=== PATIENT | female | born 1955 | race Hispanic/Latino ===

== ENCOUNTER 2017-04-14 18:38 | Inpatient (IN) | payer MEDICAID, OTHER ==
[2017-04-14 18:38] VITALS: BMI 36.3
--- NOTE | 2017-04-14 19:37 | C.PDOC ---
History Of Present Illness Patient presents to the ER with a complaint of left foot pain and feeling SOB. Patient states she feels like her asthma is acting up. She is currently able to speak in complete sentences, denies chest pain, fever, or chills. Time Seen by Provider: 04/14/17 19:36 Chief Complaint (Nursing): Lower Extremity Problem/Injury History Per: Patient History/Exam Limitations: no limitations Onset/Duration Of Symptoms: Hrs Current Symptoms Are (Timing): Still Present Severity: Moderate Pain Scale Rating Of: 4 Recent travel outside of the [place]: No Past Medical History Reviewed: Historical Data, Nursing Documentation, Vital Signs Vital Signs: Last Vital Signs Temp 101.2 F H 04/14/17 21:32 Pulse 99 H 04/14/17 21:32 Resp 20 04/14/17 21:32 BP 115/39 L 04/14/17 21:32 Pulse Ox 97 04/14/17 21:32 - Medical History PMH: Arthritis, Asthma, CAD, CHF, COPD, Diabetes, HTN, Hypercholesterolemia, Hyperlipidemia, Hypothyroidism, Peripheral Edema Surgical History: CABG, Hernia Repair, Tonsillectomy - [facility] Procedures CORONAR ARTERIOGR-2 CATH (11/19/13) DRAINAGE OF FACE SKIN, EXTERNAL APPROACH (02/13/17) INSERTION OF INFUSION DEV INTO SUP VENA CAVA, PERC APPROACH (10/02/16) LEFT HEART CARDIAC CATH (11/19/13) LT HEART ANGIOCARDIOGRAM (11/19/13) MEASURE CARDIAC SAMPL & PRESSURE, BILATERAL, PERC (03/11/16) PLAIN RADIOGRAPHY OF MULT COR ART USING L OSM CONTRAST (03/11/16) PLAIN RADIOGRAPHY OF R & L HEART USING L OSM CONTRAST (03/11/16) RELEASE PERITONEUM, OPEN APPROACH (12/27/16) SUPPLEMENT ABDOMINAL WALL WITH SYNTH SUB, OPEN APPROACH (12/27/16) Family History: States: No Known Family Hx - Social History Hx Tobacco Use: No Hx Alcohol Use: No Hx Substance Use: No - Immunization History Hx Tetanus Toxoid Vaccination: No Hx Influenza Vaccination: No Hx Pneumococcal Vaccination: Yes Review Of Systems Constitutional: Negative for: Fever, Chills Cardiovascular: Negative for: Chest Pain, Palpitations Respiratory: Positive for: Shortness of Breath Gastrointestinal: Negative for: Nausea, Vomiting Musculoskeletal: Positive for: Foot Pain Physical Exam - Physical Exam Appears: Non-toxic Skin: Warm, Dry Head: Normacephalic Oral Mucosa: Dry Chest: Symmetrical, No Tenderness Cardiovascular: Rhythm Regular Respiratory: No Rales, No Rhonchi, Wheezing (Scattered) Gastrointestinal/Abdominal: Soft, No Tenderness Extremity: Pedal Edema (Bilateral trace), Other (Poor vasculature skin changes to bilateral lower extremities) Pulses: Left Dorsalis Pedis: Normal, Right Dorsalis Pedis: Normal Neurological/Psych: Oriented x3 ED Course And Treatment - Laboratory Results Result Diagrams: 04/14/17 20:13 04/14/17 20:13 ECG: Interpreted By Me, Viewed By Me (86) ECG Rhythm: Nonspecific Changes O2 Sat by Pulse Oximetry: 96 (Room air) Pulse Ox Interpretation: Normal - Radiology CXR Interpretation: Yes: Other (cabg). No: Infiltrates, Fracture, Cardiomegaly Progress Note: Blood work, EKG, flu swab, urinalysis, and CXR ordered. Albuterol nebulizer, tylenol, and solumedrol administered. Disposition Discussed With DrJaquan: Lula Valentine Comment: accepted the pt on her service and took over the care at 10:26 PM Doctor Will See Patient In The: Hospital Counseled Patient/Family Regarding: Studies Performed, Diagnosis - Disposition Disposition: HOSPITALIZED Disposition Time: 19:37 Condition: FAIR Forms: [employer] (Estonian) - POA Present On Arrival: Poor Glycemic Control - Clinical Impression Clinical Impression: COPD (chronic obstructive pulmonary disease), Anemia, CHF (congestive heart failure), Chronic leg pain, Diabetic neuropathy - Scribe Statement The provider has reviewed the documentation as recorded by the Scribe Alvaro Edwards All medical record entries made by the Scribe were at my direction and personally dictated by me. I have reviewed the chart and agree that the record accurately reflects my personal performance of the history, physical exam, medical decision making, and the department course for this patient. I have also personally directed, reviewed, and agree with the discharge instructions and disposition. Decision To Admit - Pt Status Changed To: Hospital Disposition Of: Inpatient - Admit Certification Admit to Inpatient:: After my assessment, the patient will require hospitalization for at least two midnights. This is because of the severity of symptoms shown, intensity of services needed, and/or the medical risk in this patient being treated as an outpatient. - InPatient: Physician Admission Certification: I certify that this patient requires 2 or more midnights of care for the following reason:: After my assessment, the patient will require hospitalization for at least two midnights. This is because of the severity of symptoms shown, intensity of services needed, and/or the medical risk in this patient being treated as an outpatient. - . Bed Request Type: Telemetry Admitting Physician: Lula Valentine Patient Diagnosis: COPD (chronic obstructive pulmonary disease), Anemia, CHF (congestive heart failure), Chronic leg pain, Diabetic neuropathy
[2017-04-14] MEDS: Albuterol-Ipratrop 3 mg / 0.5 (3 ml) UD IH SCH ×3 (20:15→20:45)
[2017-04-14 20:16] LABS: EOS # 0.1 K/uL (0.0-0.7); LYMPH # 0.8 K/uL (1.0-4.3); MEAN CELL VOLUME 84.8 fL (81.0-99.0); MONO # 0.3 K/uL (0.0-0.8); NEUT # 6.7 K/uL (1.8-7.0)
[2017-04-14 20:22] LABS: BASO % 0.5 % (0.0-2.0); EOS % 0.6 % (0.0-4.0); HEMOGLOBIN 9.2 g/dL (11.0-16.0); MEAN CORPUSCULAR HEMOGLOBIN 27.1 pg (27.0-31.0); MEAN CORPUSCULAR HGB CONC 31.9 g/dL (33.0-37.0); MONO % 3.4 % (0.0-10.0); NEUT % 85.5 % (50.0-75.0); RBC 3.39 Mil/uL (3.80-5.20); RED CELL DISTRIBUTION WIDTH 15.8 % (11.5-14.5); WHITE BLOOD COUNT 7.9 K/uL (4.8-10.8)
[2017-04-14 20:25] LABS: INR 1.2; PROTHROMBIN TIME 13.3 SECONDS (9.7-12.2)
[2017-04-14 20:28] LABS: ALB/GLOB RATIO 1.1 (1.0-2.1); ALBUMIN 3.6 g/dL (3.5-5.0); CALCIUM 8.7 mg/dl (8.6-10.4); GFR AFRICAN-AMERICAN > 60; GFR NON-AFRICAN AMERICAN 57
[2017-04-14 20:30] LABS: VENOUS BLOOD GAS BASE EXCESS -1.7 mmol/L (0.0-2.0); VENOUS BLOOD GAS PCO2 33 mmHg (40-60); VENOUS BLOOD GAS PO2 31 mm/Hg (30-55); VENOUS BLOOD PH 7.43 (7.32-7.43)
[2017-04-14 20:32] LABS: ALT/SGPT 27 U/L (9-52); AST/SGOT 24 U/L (14-36); BLOOD UREA NITROGEN 19 mg/dL (7-17)
[2017-04-14] MEDS ORDERED: Albuterol-Ipratrop 3 mg / 0.5 (3 ml) UD ONE ×2 (20:33→20:39)
[2017-04-14 20:39] LABS: B-TYPE NATRIURETIC PEPTIDE 2290 pg/mL (0-900)
[2017-04-14 20:59] LABS: SQUAMOUS EPITHIAL 11 /hpf (0-5); URINE BACTERIA RARE (<OCC); URINE BILIRUBIN NEGATIVE (NEGATIVE); URINE BLOOD NEGATIVE (NEGATIVE); URINE CLARITY Clear (Clear); URINE COLOR Yellow (YELLOW); URINE GLUCOSE (UA) NORMAL (Normal); URINE LEUKOCYTE ESTERASE TRACE Leu/uL (Negative); URINE NITRATE NEGATIVE (NEGATIVE); URINE PROTEIN 1+ mg/dL (NEGATIVE)
[2017-04-14] MEDS ORDERED: Piperacillin/Tazobact 3.375 gm 100 ML IVPB STA (22:25)
[2017-04-14] MEDS ORDERED: Piperacillin/Tazobact 3.375 gm 100 ML IVPB ONE (22:49)
[2017-04-15] MEDS ORDERED: Albuterol HFA 90 mcg/actuation (8 g) IH PRN ×2 (01:10→14:00)
[2017-04-15] MEDS: Piperacill/Tazo 3.375gm in Dex 3.375 GM/50 ML BAG IVPB SCH ×3 (07:02→22:34)
[2017-04-15] MEDS ORDERED: Home Med 1 UNIT (Vancomycin 1 Gm [Vancomycin 1gm In Normal Saline Addvantage] 1 GM) IVPB SCH (10:00)
[2017-04-15] MEDS: (Novolog) Insulin Aspart, Recombinant 100 u/ml 10 ml vial SC SCH ×4 (10:35→21:57)
[2017-04-15] MEDS ORDERED: (Novolin R) Insulin Human Regular 100 units/ml vial ONE (10:39)
--- NOTE | 2017-04-15 10:44 | RAD ---
PROCEDURE: CHEST RADIOGRAPH, 1 VIEW HISTORY: SOB COMPARISON: 04/18/2016 FINDINGS: LUNGS: Clear. PLEURA: No pneumothorax or pleural fluid seen. CARDIOVASCULAR: Normal heart size. Status post CABG. No congestive change. OSSEOUS STRUCTURES: No significant abnormalities. VISUALIZED UPPER ABDOMEN: Normal. OTHER FINDINGS: None. IMPRESSION: No active disease.
[2017-04-15] MEDS: Enoxaparin 40 mg Syringe SC SCH (11:15)
[2017-04-15] MEDS: Vancomycin 1 gm/NS 200 ml 1 GM/200 ML BAG IVPB SCH (11:16)
[2017-04-15] MEDS: Metoprolol Succinate 50 mg XL Tab PO SCH (11:16)
[2017-04-15] MEDS: Levothyroxine 50 MCG TAB PO SCH (11:16)
[2017-04-15 19:49] VITALS: RESP 20
[2017-04-15] MEDS: Insulin Detemir 100 units/ml Vial (Levemir) SC SCH (22:17)
[2017-04-16] MEDS: guaiFENesin 200 mg/10 ml Syrup UD PO PRN (05:07)
[2017-04-16] MEDS: Piperacill/Tazo 3.375gm in Dex 3.375 GM/50 ML BAG IVPB SCH ×3 (05:32→22:20)
[2017-04-16 07:09] LABS: HDL CHOLESTEROL 28 mg/dL (30-70)
[2017-04-16 07:10] LABS: IRON < 10 ug/dL (37-170)
[2017-04-16] MEDS: (Novolog) Insulin Aspart, Recombinant 100 u/ml 10 ml vial SC SCH ×4 (07:14→21:42)
[2017-04-16 07:18] LABS: B-TYPE NATRIURETIC PEPTIDE 6790 pg/mL (0-900)
[2017-04-16 07:20] LABS: LDL CHOLESTEROL 113 mg/dL (0-129)
[2017-04-16 08:29] LABS: % IRON SATURATION 4.52 (20-55); TOTAL IRON BINDING CAPACITY 221 ug/dL (250-450)
[2017-04-16] MEDS: Enoxaparin 40 mg Syringe SC SCH (09:13)
[2017-04-16] MEDS: Metoprolol Succinate 50 mg XL Tab PO SCH (09:13)
[2017-04-16] MEDS: Levothyroxine 50 MCG TAB PO SCH (09:14)
[2017-04-16] MEDS: Vancomycin 1 gm/NS 200 ml 1 GM/200 ML BAG IVPB SCH (11:31)
--- NOTE | 2017-04-16 11:39 | CP.PCM.CON ---
History of Present Illness - History of Present Illness History of Present Illness: Patient presents to the ER with a complaint of left foot pain and feeling SOB. Patient states she feels like her asthma is acting up. Started on IV antibiotics for cellulitis - Medical History PMH: Arthritis, Asthma, CAD, CHF, COPD, Diabetes, HTN, Hypercholesterolemia, Hyperlipidemia, Hypothyroidism, Peripheral Edema Surgical History: CABG, Hernia Repair, Tonsillectomy - [facility] Procedures CORONAR ARTERIOGR-2 CATH (11/19/13) DRAINAGE OF FACE SKIN, EXTERNAL APPROACH (02/13/17) INSERTION OF INFUSION DEV INTO SUP VENA CAVA, PERC APPROACH (10/02/16) LEFT HEART CARDIAC CATH (11/19/13) LT HEART ANGIOCARDIOGRAM (11/19/13) MEASURE CARDIAC SAMPL & PRESSURE, BILATERAL, PERC (03/11/16) PLAIN RADIOGRAPHY OF MULT COR ART USING L OSM CONTRAST (03/11/16) PLAIN RADIOGRAPHY OF R & L HEART USING L OSM CONTRAST (03/11/16) RELEASE PERITONEUM, OPEN APPROACH (12/27/16) SUPPLEMENT ABDOMINAL WALL WITH SYNTH SUB, OPEN APPROACH (12/27/16) Family History: States: No Known Family Hx Past Patient History - Infectious Disease Hx of Infectious Diseases: None - Tetanus Immunizations Tetanus Immunization: Unknown - Past Medical History & Family History Past Medical History?: Yes - Past Social History Smoking Status: Never Smoked - CARDIAC Hx Congestive Heart Failure: Yes Hx Hypercholesterolemia: Yes Hx Hypertension: Yes Hx Peripheral Edema: Yes - PULMONARY Hx Asthma: Yes Hx Chronic Obstructive Pulmonary Disease (COPD): Yes - NEUROLOGICAL Hx Neurological Disorder: No - HEENT Other/Comment: Uses eyeglasses - RENAL Hx Chronic Kidney Disease: No - ENDOCRINE/METABOLIC Hx Hypothyroidism: Yes - HEMATOLOGICAL/ONCOLOGICAL Hx Anemia: No Hx Human Immunodeficiency Virus (HIV): No - INTEGUMENTARY Hx Dermatological Problems: Yes Other/Comment: Hx non-healing wound LLE - MUSCULOSKELETAL/RHEUMATOLOGICAL Hx Arthritis: Yes Hx Falls: No - GASTROINTESTINAL Hx Gastrointestinal Disorders: No - GENITOURINARY/GYNECOLOGICAL Hx Genitourinary Disorders: No - PSYCHIATRIC Hx Substance Use: No - SURGICAL HISTORY Hx Coronary Artery Bypass Graft: Yes Hx Tonsillectomy: Yes - ANESTHESIA Hx Anesthesia: Yes Hx Anesthesia Reactions: No Hx Malignant Hyperthermia: No Meds Allergies/Adverse Reactions: Allergies Allergy/AdvReac Type Severity Reaction Status Date / Time No Known Allergies Allergy Verified 04/14/17 19:28 - Medications Medications: Current Medications Acetaminophen (Tylenol 325mg Tab) 650 mg PO Q4 PRN PRN Reason: Pain, moderate (4-7) Albuterol (Ventolin Hfa 90 Mcg/Actuation (8 G)) 2 puff IH RQ6 PRN PRN Reason: Shortness of Breath Last Admin: 04/16/17 03:43 Dose: 2 puff Allopurinol (Zyloprim) 100 mg PO DAILY [facility]END[facility] S[facility] TO [facility] Last Admin: 04/16/17 09:14 Dose: 100 mg Aspirin (Ecotrin) 81 mg PO DAILY PENDING S[facility] TO [facility] Last Admin: 04/16/17 09:14 Dose: 81 mg Clopidogrel Bisulfate (Plavix) 75 mg PO DAILY PEND[facility] S[facility] TO [facility] Last Admin: 04/16/17 09:14 Dose: 75 mg Enoxaparin Sodium (Lovenox) 40 mg SC DAILY [facility]END[facility] TO [facility] Last Admin: 04/16/17 09:13 Dose: 40 mg Furosemide (Lasix) 40 mg IVP DAILY [facility] Last Admin: 04/16/17 09:13 Dose: 40 mg Gabapentin (Neurontin) 100 mg PO DAILY [facility] Last Admin: 04/16/17 09:14 Dose: 100 mg Guaifenesin (Robitussin) 200 mg PO Q4H PRN PRN Reason: Cough and congestion Last Admin: 04/16/17 05:07 Dose: 200 mg Piperacillin Sod/Tazobactam Sod (Zosyn 3.375 Gm Iv Premix) 3.375 gm in 50 mls @ 100 mls/hr IVPB Q8 PENDING SALE TO [facility] Last Admin: 04/16/17 05:32 Dose: 100 mls/hr Vancomycin/Sodium Chloride (Vancomycin 1 Gm/Ns 200 Ml) 1 gm in 200 mls @ 133.333 mls/hr IVPB Q24H PENDING SALE TO [facility] Stop: 04/20/17 11:01 Last Admin: 04/16/17 11:31 Dose: 133.333 mls/hr Insulin Aspart (Novolog) 0 unit SC ACHS PENDING SALE TO [facility] PRN Reason: Protocol Last Admin: 04/16/17 11:15 Dose: Not Given Insulin Detemir (Levemir) 12 unit SC HS [facility] Last Admin: 04/15/17 22:17 Dose: 12 unit Isosorbide Mononitrate (Imdur) 60 mg PO DAILY [facility] Last Admin: 04/16/17 09:14 Dose: 60 mg Levothyroxine Sodium (Synthroid) 50 mcg PO DAILY [facility] Last Admin: 04/16/17 09:14 Dose: 50 mcg Lisinopril (Zestril) 10 mg PO DAILY [facility] Last Admin: 04/16/17 09:14 Dose: 10 mg Metformin HCl (Glucophage) 500 mg PO BID [facility] Last Admin: 04/16/17 09:14 Dose: 500 mg Metoprolol Succinate (Toprol Xl) 50 mg PO DAILY [facility] Last Admin: 04/16/17 09:13 Dose: 50 mg Mupirocin (Bactroban Ointment) 0 gm TOP BID [facility] Last Admin: 04/16/17 09:16 Dose: 1 ea Rosuvastatin Calcium (Crestor) 5 mg PO [facility] Last Admin: 04/15/17 22:17 Dose: 5 mg Results - Vital Signs Recent Vital Signs: Last Vital Signs Temp 99.4 F 04/16/17 07:25 Pulse 87 04/16/17 08:00 Resp 20 04/16/17 07:25 BP 104/56 L 04/16/17 09:13 Pulse Ox 97 04/16/17 07:25 - Labs Result Diagrams: 04/14/17 20:13 04/14/17 20:13 Labs: Laboratory Results - last 24 hr 04/15/17 04/15/17 04/15/17 12:43 17:46 21:10 POC Glucose (mg/dL) 148 H 192 H 162 H Hemoglobin A1c Iron TIBC % Saturation NT-Pro-B Natriuret Pep Triglycerides Cholesterol LDL Cholesterol Direct HDL Cholesterol Vitamin B12 04/16/17 04/16/17 04/16/17 06:34 06:45 06:45 POC Glucose (mg/dL) 80 Hemoglobin A1c Iron < 10 L TIBC 221 L % Saturation 4.52 L NT-Pro-B Natriuret Pep 6790 H Triglycerides 157 H D Cholesterol 171 LDL Cholesterol Direct 113 HDL Cholesterol 28 L Vitamin B12 336 04/16/17 04/16/17 06:45 11:10 POC Glucose (mg/dL) 80 Hemoglobin A1c 6.6 H Iron TIBC % Saturation NT-Pro-B Natriuret Pep Triglycerides Cholesterol LDL Cholesterol Direct HDL Cholesterol Vitamin B12 Assessment & Plan - Assessment and Plan (Free Text) Assessment: cont iv rx cellulitis LLE
--- NOTE | 2017-04-16 13:42 | HP ---
The patient was seen and examined on 04/15/2017 in her room. CHIEF COMPLAINT: Swelling of the legs. HISTORY OF PRESENT ILLNESS: Ms. Taylor Angeles is a 61-year-old female with history of congestive heart failure, COPD, history of stasis dermatitis of the legs, very noncompliant, came with left foot pain and feeling shortness of breath. The patient states that she feels like her asthma is acting up, coughing, shortness of breath. She denies chest pain, fever. chills, nausea, vomiting, or diarrhea. Legs were swollen and red. PAST MEDICAL HISTORY: Arthritis, asthma, coronary artery disease, congestive heart failure, COPD, diabetes mellitus, hypertension, hypercholesterolemia, hyperlipidemia, hypothyroidism, and peripheral edema. PAST SURGICAL HISTORY: CABG, hernia repair, and tonsillectomy. HABITS: No smoking. No drugs. No ethanol. ALLERGIES: THE PATIENT IS NOT ALLERGIC TO ANY MEDICATION. Home medications are reviewed by me. REVIEW OF SYSTEMS: The patient is seen and examined at the bedside, looking comfortable. No nausea, vomiting, or diarrhea. No hematuria or hematochezia. Having swelling of the legs. No headache or dizziness. Cough is better, shortness of breath is better. No fever. No chills. PHYSICAL EXAMINATION VITAL SIGNS: Temperature 97.1, pulse 73, blood pressure 118/63, and respiratory rate 20. HEENT: Head: Normocephalic, atraumatic. Eyes: PERRLA. Extraocular movements are intact. Conjunctivae clear. Nose patent. Mucous membranes are moist. NECK: Supple. No carotid bruits, JVD, or thyromegaly. CHEST: Bilaterally symmetrical. HEART: S1 and S2 positive. LUNGS: Clear to auscultation, ABDOMEN: Soft. Bowel sounds are present. No organomegaly. EXTREMITIES: With trace edema and redness of the legs. NEUROLOGIC: The patient is awake and alert, moving all 4 extremities with no focal deficits. LABORATORY DATA: White blood cells 7.9, hemoglobin 9.2, hematocrit 28.8, and platelets 233,000. Sodium 131, potassium 4.5, BUN 19, creatinine 1.0, glucose 162, and BNP 2290. ASSESSMENT AND PLAN: Ms. Taylor Angeles is a 61-year-old female with anemia, hyponatremia, and diabetes mellitus who came with congestive heart failure, cellulitis of the leg, and proteinuria. Influenza type A and B is negative. The patient has a history of arthritis, asthma, coronary artery disease, chronic obstructive pulmonary disease, hypercholesterolemia, hyperlipidemia, hypothyroidism, peripheral vascular disease, coronary artery bypass grafting, hernia repair, and tonsillectomy. Re-admitted the patient. Started Crestor for hypercholesterolemia; metformin for diabetes mellitus, put on sliding scale; started isosorbide, Lasix Lovenox for deep venous thrombosis prophylaxis; Neurontin for deep venous thrombosis; getting antibiotics Zosyn, Plavix and levothyroxine for hypothyroidism; getting vancomycin, Zestril. Gastric and deep venous thrombosis prophylaxis. Repeat labs. We will follow. Lula Valentine MD
--- NOTE | 2017-04-16 14:33 | CP.PCM.CON ---
<Shadi Thompson - Last Filed: 04/16/17 14:18> History of Present Illness - History of Present Illness History of Present Illness: Cardiology Consult Note for Dr. Adams CC: Left foot pain and SOB Pt is a 61 yo female with PMH of asthma, arthritis, venous stasis dermatitis. CAD, CHF with preserved EF, DM, HTN, IA (2012), HLD, hypothyroidism, peripheral edema presents to due to left foot pain and SOB. Pt states that the foot pain is chronic is due to peripheral neuropathy 2/2 to DM. Pt is currently being treated with gabapentin for neuropathic pain. Pt states that it feels like her asthma is worsening as she is short of breath and has increased coughing, non-productive. Pt also complaining of fever on admission. Pt can only walk 2 blocks before becoming short of breath. Pt requires 2 pillows when sleeping at night. Pt is on several medications for CHF, however is known to be non-compliant. Pt had cardiac catherization on 06/16/16 that showed patent ANDERSON to LAD and patent saphenous vein to posterior lateral. However, no other grafts could be identified. Echocardiogram in September 2016 showed LVEF of 60-65%, moderate dilation of left atrium, moderate TR/MR, and moderate pulmonary HTN. Currently, patient denied chest pain, nausea, vomiting, diarrhea, abdominal pain , fever, chills, headache, or dizziness. PMH: Asthma, arthritis, venous stasis dermatitis, CAD, CHF with preserved EF, DM , HTN, IA (2013), HLD, hypothyroidism, peripheral edema PSH: CABG quadruple bypass (2012), hernia repair, tonsillectomy All: NKDA FHx: Non-contributory SH: Denied tobacco, EtOH, and illicit drug use Review of Systems - Review of Systems Review of Systems: 12 point ROS reviewed and is negative other than what is stated in HPI. Past Patient History - Infectious Disease Hx of Infectious Diseases: None - Tetanus Immunizations Tetanus Immunization: Unknown - Past Medical History & Family History Past Medical History?: Yes - Past Social History Smoking Status: Never Smoked - CARDIAC Hx Congestive Heart Failure: Yes Hx Hypercholesterolemia: Yes Hx Hypertension: Yes Hx Peripheral Edema: Yes - PULMONARY Hx Asthma: Yes Hx Chronic Obstructive Pulmonary Disease (COPD): Yes - NEUROLOGICAL Hx Neurological Disorder: No - HEENT Other/Comment: Uses eyeglasses - RENAL Hx Chronic Kidney Disease: No - ENDOCRINE/METABOLIC Hx Hypothyroidism: Yes - HEMATOLOGICAL/ONCOLOGICAL Hx Anemia: No Hx Human Immunodeficiency Virus (HIV): No - INTEGUMENTARY Hx Dermatological Problems: Yes Other/Comment: Hx non-healing wound LLE - MUSCULOSKELETAL/RHEUMATOLOGICAL Hx Arthritis: Yes Hx Falls: No - GASTROINTESTINAL Hx Gastrointestinal Disorders: No - GENITOURINARY/GYNECOLOGICAL Hx Genitourinary Disorders: No - PSYCHIATRIC Hx Substance Use: No - SURGICAL HISTORY Hx Coronary Artery Bypass Graft: Yes Hx Tonsillectomy: Yes - ANESTHESIA Hx Anesthesia: Yes Hx Anesthesia Reactions: No Hx Malignant Hyperthermia: No Meds Allergies/Adverse Reactions: Allergies Allergy/AdvReac Type Severity Reaction Status Date / Time No Known Allergies Allergy Verified 04/14/17 19:28 - Medications Medications: Current Medications Acetaminophen (Tylenol 325mg Tab) 650 mg PO Q4 PRN PRN Reason: Pain, moderate (4-7) Last Admin: 04/16/17 13:42 Dose: 650 mg Albuterol (Ventolin Hfa 90 Mcg/Actuation (8 G)) 2 puff IH RQ6 PRN PRN Reason: Shortness of Breath Last Admin: 04/16/17 03:43 Dose: 2 puff Allopurinol (Zyloprim) 100 mg PO DAILY [facility] Last Admin: 04/16/17 09:14 Dose: 100 mg Aspirin (Ecotrin) 81 mg PO DAILY [facility] Last Admin: 04/16/17 09:14 Dose: 81 mg Clopidogrel Bisulfate (Plavix) 75 mg PO DAILY [facility] Last Admin: 04/16/17 09:14 Dose: 75 mg Enoxaparin Sodium (Lovenox) 40 mg SC DAILY [facility] Last Admin: 04/16/17 09:13 Dose: 40 mg Furosemide (Lasix) 40 mg IVP DAILY [facility] Last Admin: 04/16/17 09:13 Dose: 40 mg Gabapentin (Neurontin) 100 mg PO DAILY [facility] Last Admin: 04/16/17 09:14 Dose: 100 mg Guaifenesin (Robitussin) 200 mg PO Q4H PRN PRN Reason: Cough and congestion Last Admin: 04/16/17 05:07 Dose: 200 mg Piperacillin Sod/Tazobactam Sod (Zosyn 3.375 Gm Iv Premix) 3.375 gm in 50 mls @ 100 mls/hr IVPB Q8 [facility] Last Admin: 04/16/17 13:42 Dose: 100 mls/hr Vancomycin/Sodium Chloride (Vancomycin 1 Gm/Ns 200 Ml) 1 gm in 200 mls @ 133.333 mls/hr IVPB Q24H [facility] Stop: 04/20/17 11:01 Last Admin: 04/16/17 11:31 Dose: 133.333 mls/hr Insulin Aspart (Novolog) 0 unit SC [facility] PRN Reason: Protocol Last Admin: 04/16/17 11:15 Dose: Not Given Insulin Detemir (Levemir) 12 unit SC [facility] Last Admin: 04/15/17 22:17 Dose: 12 unit Isosorbide Mononitrate (Imdur) 60 mg PO DAILY [facility] Last Admin: 04/16/17 09:14 Dose: 60 mg Levothyroxine Sodium (Synthroid) 50 mcg PO DAILY [facility] Last Admin: 04/16/17 09:14 Dose: 50 mcg Lisinopril (Zestril) 10 mg PO DAILY [facility] Last Admin: 04/16/17 09:14 Dose: 10 mg Metformin HCl (Glucophage) 500 mg PO BID [facility] Last Admin: 04/16/17 09:14 Dose: 500 mg Metoprolol Succinate (Toprol Xl) 50 mg PO DAILY [facility] Last Admin: 04/16/17 09:13 Dose: 50 mg Mupirocin (Bactroban Ointment) 0 gm TOP BID [facility] Last Admin: 04/16/17 09:16 Dose: 1 ea Rosuvastatin Calcium (Crestor) 5 mg PO [facility] Last Admin: 04/15/17 22:17 Dose: 5 mg Physical Exam - Constitutional Appears: No Acute Distress - Head Exam Head Exam: NORMAL INSPECTION - Eye Exam Eye Exam: Normal appearance - ENT Exam ENT Exam: Normal Exam - Neck Exam Neck exam: Positive for: Normal Inspection - Respiratory Exam Respiratory Exam: Clear to Auscultation Bilateral. absent: Rales, Rhonchi, Wheezes - Cardiovascular Exam Cardiovascular Exam: RRR, +S1, +S2. absent: Clicks, Gallop, Rubs, Systolic Murmur - GI/Abdominal Exam GI & Abdominal Exam: Soft. absent: Distended, Guarding, Hernia, Rebound, Tenderness - Extremities Exam Extremities exam: Positive for: pedal edema - Neurological Exam Neurological exam: Alert, Oriented x3 Results - Vital Signs Recent Vital Signs: Last Vital Signs Temp 100.1 F H 04/16/17 13:42 Pulse 83 04/16/17 11:55 Resp 20 04/16/17 07:25 BP 104/56 L 04/16/17 09:13 Pulse Ox 97 04/16/17 07:25 - Labs Result Diagrams: 04/14/17 20:13 04/14/17 20:13 Labs: Laboratory Results - last 24 hr 04/15/17 04/15/17 04/16/17 17:46 21:10 06:34 POC Glucose (mg/dL) 192 H 162 H 80 Hemoglobin A1c Iron TIBC % Saturation NT-Pro-B Natriuret Pep Triglycerides Cholesterol LDL Cholesterol Direct HDL Cholesterol Vitamin B12 04/16/17 04/16/17 04/16/17 06:45 06:45 06:45 POC Glucose (mg/dL) Hemoglobin A1c 6.6 H Iron < 10 L TIBC 221 L % Saturation 4.52 L NT-Pro-B Natriuret Pep 6790 H Triglycerides 157 H D Cholesterol 171 LDL Cholesterol Direct 113 HDL Cholesterol 28 L Vitamin B12 336 04/16/17 11:10 POC Glucose (mg/dL) 80 Hemoglobin A1c Iron TIBC % Saturation NT-Pro-B Natriuret Pep Triglycerides Cholesterol LDL Cholesterol Direct HDL Cholesterol Vitamin B12 Assessment & Plan - Assessment and Plan (Free Text) Assessment: 61 yo female with asthma, arthritis, venous stasis dermatitis, CAD, CHF with preserved EF, DM, HTN, [place] (2012), HLD, hypothyroidism, peripheral edema presents with SOB likely 2/2 CHF with preserved EF. Plan: 1. CHF with preserved EF - BNP 2290, 6790 - Echo showed moderate MS, moderate pulm HTN, and aortic insufficiency - EKG showed NSR, possible inferior infarct age undetermined - CXR negative - ASCVD 10 year risk 7.8% - Continue gentle diuresis, Lasix 40 mg PO - Continue ASA, plavix, Lopressor, Imdur 2. Viral URI - Febrile on admission with increased cough - Symptomatic management 3. LLE cellulitis - IV abx - ID following 4. HTN - Cont Lisinopril 5. DM - Cont Metformin - Cont Insulin basal-bolus - Accucheck ACHS 6. Hypothyroidism - Cont Synthroid 7. HLD - Cont Crestor Pt seen and discussed in detail with Dr. Adams. Corby Thompson, PGY1 <Johnie Adams - Last Filed: 04/17/17 08:30> Meds - Medications Medications: Current Medications Acetaminophen (Tylenol 325mg Tab) 650 mg PO Q4 PRN PRN Reason: Pain, moderate (4-7) Last Admin: 04/16/17 13:42 Dose: 650 mg Albuterol (Ventolin Hfa 90 Mcg/Actuation (8 G)) 2 puff IH RQ6 PRN PRN Reason: Shortness of Breath Last Admin: 04/16/17 03:43 Dose: 2 puff Allopurinol (Zyloprim) 100 mg PO DAILY [facility] Last Admin: 04/16/17 09:14 Dose: 100 mg Aspirin (Ecotrin) 81 mg PO DAILY [facility] Last Admin: 04/16/17 09:14 Dose: 81 mg Clopidogrel Bisulfate (Plavix) 75 mg PO DAILY [facility] Last Admin: 04/16/17 09:14 Dose: 75 mg Enoxaparin Sodium (Lovenox) 40 mg SC DAILY [facility] Last Admin: 04/16/17 09:13 Dose: 40 mg Furosemide (Lasix) 40 mg PO DAILY [facility] Gabapentin (Neurontin) 100 mg PO DAILY [facility] Last Admin: 04/16/17 09:14 Dose: 100 mg Guaifenesin (Robitussin) 200 mg PO Q4H PRN PRN Reason: Cough and congestion Last Admin: 04/17/17 04:21 Dose: 200 mg Piperacillin Sod/Tazobactam Sod (Zosyn 3.375 Gm Iv Premix) 3.375 gm in 50 mls @ 100 mls/hr IVPB Q8 [facility] Last Admin: 04/17/17 05:57 Dose: 100 mls/hr Vancomycin/Sodium Chloride (Vancomycin 1 Gm/Ns 200 Ml) 1 gm in 200 mls @ 133.333 mls/hr IVPB Q24H [facility] Stop: 04/20/17 11:01 Last Admin: 04/16/17 11:31 Dose: 133.333 mls/hr Insulin Aspart (Novolog) 0 unit SC [facility] PRN Reason: Protocol Last Admin: 04/17/17 07:24 Dose: Not Given Insulin Detemir (Levemir) 12 unit SC [facility] Last Admin: 04/16/17 21:42 Dose: Not Given Isosorbide Mononitrate (Imdur) 60 mg PO DAILY [facility] Last Admin: 04/16/17 09:14 Dose: 60 mg Levothyroxine Sodium (Synthroid) 50 mcg PO DAILY [facility] Last Admin: 04/16/17 09:14 Dose: 50 mcg Lisinopril (Zestril) 10 mg PO DAILY [facility] Last Admin: 04/16/17 09:14 Dose: 10 mg Metformin HCl (Glucophage) 500 mg PO BID [facility] Last Admin: 04/16/17 18:14 Dose: Not Given Metoprolol Succinate (Toprol Xl) 50 mg PO DAILY [facility] Last Admin: 04/16/17 09:13 Dose: 50 mg Mupirocin (Bactroban Ointment) 0 gm TOP BID [facility] Last Admin: 04/16/17 18:51 Dose: 1 appl Rosuvastatin Calcium (Crestor) 5 mg PO [facility] Last Admin: 04/16/17 22:20 Dose: 5 mg Results - Vital Signs Recent Vital Signs: Last Vital Signs Temp 100.9 F H 04/17/17 07:35 Pulse 72 04/17/17 07:35 Resp 20 04/17/17 07:35 BP 112/64 04/17/17 07:35 Pulse Ox 95 04/17/17 07:35 - Labs Result Diagrams: 04/17/17 07:54 04/17/17 07:54 Labs: Laboratory Results - last 24 hr 04/16/17 04/16/17 04/16/17 06:45 06:45 11:10 WBC RBC Hgb Hct MCV MCH MCHC RDW Plt Count MPV Neut % (Auto) Lymph % (Auto) Boundary % (Auto) Eos % (Auto) Baso % (Auto) Neut # Lymph # Boundary # Eos # Baso # Sodium Potassium Chloride Carbon Dioxide Anion Gap BUN Creatinine Est GFR ( Amer) Est GFR (Non-Af Amer) POC Glucose (mg/dL) 80 Random Glucose Hemoglobin A1c 6.6 H Lactic Acid Calcium TIBC 221 L % Saturation 4.52 L Total Bilirubin AST ALT Alkaline Phosphatase Total Protein Albumin Globulin Albumin/Globulin Ratio 04/16/17 04/16/17 04/16/17 16:28 16:29 16:59 WBC 8.8 RBC 2.97 L Hgb 8.2 L Hct 25.1 L MCV 84.6 MCH 27.6 MCHC 32.6 L RDW 15.3 H Plt Count 275 MPV 9.2 Neut % (Auto) 85.5 H Lymph % (Auto) 12.6 L Boundary % (Auto) 1.7 Eos % (Auto) 0.0 Baso % (Auto) 0.2 Neut # 7.5 H Lymph # 1.1 Boundary # 0.1 Eos # 0.0 Baso # 0.0 Sodium Potassium Chloride Carbon Dioxide Anion Gap BUN Creatinine Est GFR ( Amer) Est GFR (Non-Af Amer) POC Glucose (mg/dL) 69 69 Random Glucose Hemoglobin A1c Lactic Acid Calcium TIBC % Saturation Total Bilirubin AST ALT Alkaline Phosphatase Total Protein Albumin Globulin Albumin/Globulin Ratio 04/16/17 04/16/17 04/16/17 16:59 17:20 21:21 WBC RBC Hgb Hct MCV MCH MCHC RDW Plt Count MPV Neut % (Auto) Lymph % (Auto) Boundary % (Auto) Eos % (Auto) Baso % (Auto) Neut # Lymph # Boundary # Eos # Baso # Sodium 132 Potassium 3.6 Chloride 100 Carbon Dioxide 25 Anion Gap 11 BUN 23 H Creatinine 1.3 H Est GFR ( Amer) 51 Est GFR (Non-Af Amer) 42 POC Glucose (mg/dL) 80 77 Random Glucose 74 Hemoglobin A1c Lactic Acid Calcium 8.4 L TIBC % Saturation Total Bilirubin 0.5 AST 14 D ALT 21 Alkaline Phosphatase 64 Total Protein 5.5 L Albumin 2.9 L Globulin 2.6 Albumin/Globulin Ratio 1.1 04/16/17 04/17/17 04/17/17 22:42 06:27 07:54 WBC 6.6 RBC 3.03 L Hgb 8.4 L Hct 25.6 L MCV 84.6 MCH 27.7 MCHC 32.8 L RDW 15.4 H Plt Count 240 MPV 9.2 Neut % (Auto) Lymph % (Auto) Boundary % (Auto) Eos % (Auto) Baso % (Auto) Neut # Lymph # Boundary # Eos # Baso # Sodium Potassium Chloride Carbon Dioxide Anion Gap BUN Creatinine Est GFR ( Amer) Est GFR (Non-Af Amer) POC Glucose (mg/dL) 87 Random Glucose Hemoglobin A1c Lactic Acid 0.8 Calcium TIBC % Saturation Total Bilirubin AST ALT Alkaline Phosphatase Total Protein Albumin Globulin Albumin/Globulin Ratio 04/17/17 07:54 WBC RBC Hgb Hct MCV MCH MCHC RDW Plt Count MPV Neut % (Auto) Lymph % (Auto) Boundary % (Auto) Eos % (Auto) Baso % (Auto) Neut # Lymph # Boundary # Eos # Baso # Sodium 131 L Potassium 3.9 Chloride 96 L Carbon Dioxide 26 Anion Gap 12 BUN 19 H Creatinine 1.3 H Est GFR ( Amer) 51 Est GFR (Non-Af Amer) 42 POC Glucose (mg/dL) Random Glucose 87 Hemoglobin A1c Lactic Acid Calcium 8.1 L TIBC % Saturation Total Bilirubin 0.9 AST 17 ALT 25 Alkaline Phosphatase 67 Total Protein 6.0 L Albumin 3.2 L Globulin 2.8 Albumin/Globulin Ratio 1.1 Attending/Attestation - Attestation I have personally seen and examined this patient.: Yes I have fully participated in the care of the patient.: Yes I have reviewed all pertinent clinical information: Yes Notes (Text): 04/17/17 08:29 CHF exacerbation hx of CAD / CABG Cath in 07/10 patent anderson to lad and svg to rca Echo done shows moderate MS will re-evaluate patient after diuresis
[2017-04-16 17:09] LABS: BASO % 0.2 % (0.0-2.0); HEMOGLOBIN 8.2 g/dL (11.0-16.0); LYMPH # 1.1 K/uL (1.0-4.3); LYMPH % 12.6 % (20.0-40.0); MEAN CELL VOLUME 84.6 fL (81.0-99.0); MEAN CORPUSCULAR HEMOGLOBIN 27.6 pg (27.0-31.0); MEAN CORPUSCULAR HGB CONC 32.6 g/dL (33.0-37.0); MEAN PLATELET VOLUME 9.2 fL (7.2-11.7); MONO # 0.1 K/uL (0.0-0.8); MONO % 1.7 % (0.0-10.0); NEUT # 7.5 K/uL (1.8-7.0); NEUT % 85.5 % (50.0-75.0); RBC 2.97 Mil/uL (3.80-5.20); RED CELL DISTRIBUTION WIDTH 15.3 % (11.5-14.5); WHITE BLOOD COUNT 8.8 K/uL (4.8-10.8)
[2017-04-16 17:29] LABS: ALB/GLOB RATIO 1.1 (1.0-2.1); ALBUMIN 2.9 g/dL (3.5-5.0); CALCIUM 8.4 mg/dl (8.6-10.4)
[2017-04-16] MEDS: Insulin Detemir 100 units/ml Vial (Levemir) SC SCH (21:42)
--- NOTE | 2017-04-16 23:31 | CARD ---
APPROVED REPORT EKG Measurement Heart [id number] <Conclusion> Normal sinus rhythm Possible Inferior infarct, age undetermined Abnormal ECG
--- NOTE | 2017-04-17 02:42 | PN ---
DATE: SUBJECTIVE: The patient is seen and examined at the bedside early in the morning, sleepy, arousable. No nausea, vomiting, or diarrhea. No fever, no chills, no headache, no dizziness, no chest pain, no palpitation. PHYSICAL EXAMINATION: VITAL SIGNS: Temperature 98.8, pulse 64, blood pressure 92/59, respiratory rate 20. HEENT: Head, normocephalic, atraumatic. Eyes, PERRLA. Extraocular muscles intact. Conjunctivae clear. Nose patent. Mucous membranes are moist. NECK: Supple. No carotid bruit. No thyromegaly. CHEST: Bilaterally symmetrical. HEART: S1 and S2 positive. LUNGS: Clear to auscultation. ABDOMEN: Soft, bowel sounds present. No organomegaly. EXTREMITIES: No edema, no cyanosis. NEUROLOGIC: The patient is awake and alert. Moving all four extremities. No focal deficit. MEDICATIONS: Bactroban ointment, Crestor, Ecotrin, Glucophage, Imdur, Lasix, Levemir, Neurontin, NovoLog, Plavix, Robitussin, Synthroid, Toprol, Tylenol, vancomycin, Ventolin, Zestril, Zosyn, and allopurinol. LABORATORY DATA: White blood cell 8.8, hemoglobin 8.2, hematocrit 25.1, platelets 275. Sodium 132, potassium 3.6, BUN 26, creatinine 1.1, glucose 77, calcium 8.7. ASSESSMENT AND PLAN: Mrs. Taylor Angeles is a 61-year-old lady with anemia, renal insufficiency, hypocalcemia, proteinuria. Influenza type A and B is negative. The patient has history of asthma, arthritis, venous stasis, dermatitis, coronary artery disease, congestive heart failure, diabetes mellitus, history of myocardial infarction, hypertension, hypothyroidism, peripheral edema, history of coronary artery bypass grafting, quadruple bypass, hernia repair, tonsillectomy. Continue gentle diuresis with Lasix 40 mg p.o., continue aspirin, Plavix, Lopressor, and Imdur. Rule out viral upper respiratory tract infection. Febrile on admission with increased cough. Left lower leg cellulitis, antibiotics as per Infectious Disease. Hypertension, continue lisinopril. Diabetes mellitus, continue metformin or insulin sliding scale. Hypothyroidism, continue Synthroid. Hypercholesterolemia, the patient is getting Crestor. I appreciate Dr. Adams's input. The patient seen by Dr. Alvaro Judge. Currently, the patient is a little bit more lethargic than usual. We will do septic workup holding evening insulin. Chest x-ray PA and lateral, blood cultures and urine ,culture and sensitivity. If she will not get better, then we will do CAT scan of the head. Repeat labs. We will follow up. Lula Valentine MD MTDArely
[2017-04-17] MEDS: guaiFENesin 200 mg/10 ml Syrup UD PO PRN (04:21)
[2017-04-17] MEDS: Piperacill/Tazo 3.375gm in Dex 3.375 GM/50 ML BAG IVPB SCH (05:57)
--- NOTE | 2017-04-17 06:13 | CARD ---
APPROVED REPORT EXAM: Two-dimensional and M-mode echocardiogram with Doppler and color Doppler. Other Information Quality : FairRhythm : INDICATION Cardiac Disease: CAD Palpitations RISK FACTORS Hypertension 2D DIMENSIONS IVSd1.6 (0.7-1.1cm)LVDd3.2 (3.9-5.9cm) PWd1.6 (0.7-1.1cm)LVDs2.9 (2.5-4.0cm) FS (%) 10.3 %LVEF (%)23.2 (>50%) M-Mode DIMENSIONS Left Atrium (MM)4.72 (2.5-4.0cm)IVSd1.04 (0.7-1.1cm) Aortic Root2.93 (2.2-3.7cm)LVDd4.72 (4.0-5.6cm) Aortic Cusp Exc.1.82 (1.5-2.0cm)PWd1.17 (0.7-1.1cm) FS (%) 47 %LVDs2.51 (2.0-3.8cm) LVEF (%)78 (>50%) Aortic Valve AI P 1/2 [id number] Mitral Valve MV E Gkagwacs656.8cm/sMV E Peak Gr.27mmHgMV A Zblngceh179.2cm/s MV E Mean Gr.10mmHgMV [id number]/A ratio1.6 MVA (PHT)1.79cm2 TDI E/Lateral E'0.0E/Medial E'0.0 Tricuspid Valve TR Peak [id number]/sTR Peak Gr.54ryLbLWNQ28dgXh LEFT VENTRICLE The left ventricle is normal size. There is moderate concentric left ventricular hypertrophy. Left ventricle systolic function is normal. The Ejection Fraction is 60-65%. There is normal LV segmental wall motion. The left ventricular diastolic function is normal. RIGHT VENTRICLE The right ventricle is normal size. There is normal right ventricular wall thickness. The right ventricular systolic function is normal. ATRIA The left atrium is mildly dilated. The right atrium size is normal. The interatrial septum is intact with no evidence for an atrial septal defect. AORTIC VALVE The aortic valve is normal in structure. There is mild aortic regurgitation. There is no aortic valvular stenosis. There is no aortic valvular vegetation. MITRAL VALVE Mitral annular calcification is moderate to severe. There is no mitral valve stenosis. Mitral regurgitation is mild. TRICUSPID VALVE The tricuspid valve is normal in structure. There is mild tricuspid regurgitation. Right ventricular systolic pressure is estimated at 40-50 mmHg. There is mild to moderate tricuspid regurgitation. PULMONIC VALVE The pulmonic valve is not well visualized. There is no pulmonic valvular regurgitation. GREAT VESSELS The aortic root is normal in size. PERICARDIAL EFFUSION There is no significant pericardial effusion. <Conclusion> Left ventricle systolic function is normal. The Ejection Fraction is 60-65%. Hypertensive heart disease.. There is mild aortic regurgitation. Mitral regurgitation is mild. There is mild tricuspid regurgitation. There is mild to moderate tricuspid regurgitation. There is no pulmonic valvular regurgitation.
[2017-04-17] MEDS: (Novolog) Insulin Aspart, Recombinant 100 u/ml 10 ml vial SC SCH ×4 (07:24→21:46)
[2017-04-17 08:12] LABS: HEMOGLOBIN 8.4 g/dL (11.0-16.0); MEAN CELL VOLUME 84.6 fL (81.0-99.0); MEAN CORPUSCULAR HEMOGLOBIN 27.7 pg (27.0-31.0); MEAN CORPUSCULAR HGB CONC 32.8 g/dL (33.0-37.0); MEAN PLATELET VOLUME 9.2 fL (7.2-11.7); RBC 3.03 Mil/uL (3.80-5.20); RED CELL DISTRIBUTION WIDTH 15.4 % (11.5-14.5); WHITE BLOOD COUNT 6.6 K/uL (4.8-10.8)
[2017-04-17 08:27] LABS: ALB/GLOB RATIO 1.1 (1.0-2.1); ALBUMIN 3.2 g/dL (3.5-5.0); CALCIUM 8.1 mg/dl (8.6-10.4)
--- NOTE | 2017-04-17 10:37 | CP.PCM.PN ---
Subjective - Date & Time of Evaluation Date of Evaluation: 04/17/17 Time of Evaluation: 10:46 - Subjective Subjective: Cardiology Progress Note for Dr. Adams Pt seen and examined at bedside. No acute overnight events. Pt states that breathing is better overall; she is able to walk to nurses station and back without becoming short of breath. Pt states that post nasal drip is causing her cough, which is unchanged from yesterday. Pt denied CP, n/v/d, fever, chills, SEBASTIAN , or dizziness. Objective - Vital Signs/Intake and Output Vital Signs (last 24 hours): Temp Pulse Resp BP Pulse Ox 100.9 F H 75 20 112/64 95 04/17/17 07:35 04/17/17 08:00 04/17/17 07:35 04/17/17 07:35 04/17/17 07:35 Intake and Output: 04/17/17 04/17/17 06:59 18:59 Intake Total 680 Balance 680 - Medications Medications: Current Medications Acetaminophen (Tylenol 325mg Tab) 650 mg PO Q4 PRN PRN Reason: Pain, moderate (4-7) Last Admin: 04/16/17 13:42 Dose: 650 mg Albuterol (Ventolin Hfa 90 Mcg/Actuation (8 G)) 2 puff IH RQ6 PRN PRN Reason: Shortness of Breath Last Admin: 04/16/17 03:43 Dose: 2 puff Allopurinol (Zyloprim) 100 mg PO DAILY [facility] Last Admin: 04/16/17 09:14 Dose: 100 mg Aspirin (Ecotrin) 81 mg PO DAILY [facility] Last Admin: 04/16/17 09:14 Dose: 81 mg Clopidogrel Bisulfate (Plavix) 75 mg PO DAILY [facility] Last Admin: 04/16/17 09:14 Dose: 75 mg Enoxaparin Sodium (Lovenox) 40 mg SC DAILY [facility] Last Admin: 04/16/17 09:13 Dose: 40 mg Furosemide (Lasix) 40 mg PO DAILY [facility] Gabapentin (Neurontin) 100 mg PO DAILY [facility] Last Admin: 04/16/17 09:14 Dose: 100 mg Guaifenesin (Robitussin) 200 mg PO Q4H PRN PRN Reason: Cough and congestion Last Admin: 04/17/17 04:21 Dose: 200 mg Piperacillin Sod/Tazobactam Sod (Zosyn 3.375 Gm Iv Premix) 3.375 gm in 50 mls @ 100 mls/hr IVPB Q8 [facility] Last Admin: 04/17/17 05:57 Dose: 100 mls/hr Vancomycin/Sodium Chloride (Vancomycin 1 Gm/Ns 200 Ml) 1 gm in 200 mls @ 133.333 mls/hr IVPB Q24H [facility] Stop: 04/20/17 11:01 Last Admin: 04/16/17 11:31 Dose: 133.333 mls/hr Insulin Aspart (Novolog) [address] [facility] PRN Reason: Protocol Last Admin: 04/17/17 07:24 Dose: Not Given Insulin Detemir (Levemir) 12 unit SC [facility] Last Admin: 04/16/17 21:42 Dose: Not Given Levothyroxine Sodium (Synthroid) 50 mcg PO DAILY [facility] Last Admin: 04/16/17 09:14 Dose: 50 mcg Lisinopril (Zestril) 10 mg PO DAILY [facility] Last Admin: 04/16/17 09:14 Dose: 10 mg Metformin HCl (Glucophage) 500 mg PO BID [facility] Last Admin: 04/16/17 18:14 Dose: Not Given Metoprolol Succinate (Toprol Xl) 25 mg PO DAILY [facility] Mupirocin (Bactroban Ointment) 0 gm TOP BID [facility] Last Admin: 04/16/17 18:51 Dose: 1 appl Rosuvastatin Calcium (Crestor) 5 mg PO [facility] Last Admin: 04/16/17 22:20 Dose: 5 mg - Labs Labs: 04/17/17 07:54 04/17/17 07:54 PT 13.3 SECONDS (9.7-12.2) H 04/14/17 20:13 INR 1.2 04/14/17 20:13 APTT 28 SECONDS (21-34) 04/14/17 20:13 - Constitutional Appears: No Acute Distress - Head Exam Head Exam: NORMAL INSPECTION - Eye Exam Eye Exam: Normal appearance Pupil Exam: NORMAL ACCOMODATION - ENT Exam ENT Exam: Normal Exam - Neck Exam Neck Exam: Normal Inspection - Respiratory Exam Respiratory Exam: Rales (bilateral bases), Wheezes. absent: Accessory Muscle Use, Rhonchi, Respiratory Distress - Cardiovascular Exam Cardiovascular Exam: RRR, +S1, +S2. absent: Gallop, Rubs, Murmur - GI/Abdominal Exam GI & Abdominal Exam: Soft. absent: Distended, Guarding, Tenderness, Rebound - Extremities Exam Extremities Exam: Pedal Edema Additional comments: LLE cellulitis, erythema - Back Exam Back Exam: NORMAL INSPECTION - Neurological Exam Neurological Exam: Alert, Awake, Oriented x3 - Psychiatric Exam Psychiatric exam: Normal Affect, Normal Mood - Skin Skin Exam: Dry, Intact, Normal Color, Warm Assessment and Plan - Assessment and Plan (Free Text) Assessment: 61 yo female with asthma, arthritis, venous stasis dermatitis, CAD, CHF with preserved EF, DM, HTN, [place] (2012), HLD, hypothyroidism, peripheral edema presents with SOB likely 2/2 CHF with preserved EF. Plan: 1. CHF with preserved EF and Moderate Mitral Stenosis - Echo showed moderate MS, moderate pulm HTN, and aortic insufficiency - EKG showed NSR, possible inferior infarct age undetermined - ASCVD 10 year risk 7.8% - Continue ASA, plavix, Lisinopril, Lasix PO - Reduced Lopressor to 25 mg PO daily - Discontinue Imdur 2. Viral URI - Febrile on admission with increased cough - Symptomatic management per primary 3. LLE cellulitis - IV abx - ID following 4. HTN - Cont Lisinopril 5. DM - Cont Metformin - Cont Insulin basal-bolus - Accucheck ACHS 6. Hypothyroidism - Cont Synthroid 7. HLD - Cont Crestor Dispo: Pt is clear from cardiac standpoint. Pt should follow up in office with Dr. Adams in [address] [place] [address]. At this point, we will sign off. Thank you for allowing us to participate in the care of this patient. Please reconsult as needed. Pt seen and discussed in detail with Dr. Adams. Corby Thompson, PGY1
[2017-04-17] MEDS: Levothyroxine 50 MCG TAB PO SCH (10:56)
[2017-04-17] MEDS: Enoxaparin 40 mg Syringe SC SCH (10:56)
[2017-04-17] MEDS: Vancomycin 1 gm/NS 200 ml 1 GM/200 ML BAG IVPB SCH (10:59)
--- NOTE | 2017-04-17 12:20 | CP.PCM.PN ---
Subjective - Date & Time of Evaluation Date of Evaluation: 04/17/17 Time of Evaluation: 07:00 - Subjective Subjective: fever persists iv rx reorderd Objective - Vital Signs/Intake and Output Vital Signs (last 24 hours): Temp Pulse Resp BP Pulse Ox 100.9 F H 75 20 101/40 L 95 04/17/17 07:35 04/17/17 08:00 04/17/17 07:35 04/17/17 11:02 04/17/17 07:35 Intake and Output: 04/17/17 04/17/17 06:59 18:59 Intake Total 680 Balance 680 - Medications Medications: Current Medications Acetaminophen (Tylenol 325mg Tab) 650 mg PO Q4 PRN PRN Reason: Pain, moderate (4-7) Last Admin: 04/17/17 10:56 Dose: 650 mg Albuterol (Ventolin Hfa 90 Mcg/Actuation (8 G)) 2 puff IH RQ6 PRN PRN Reason: Shortness of Breath Last Admin: 04/16/17 03:43 Dose: 2 puff Allopurinol (Zyloprim) 100 mg PO DAILY [facility] Last Admin: 04/17/17 10:56 Dose: 100 mg Aspirin (Ecotrin) 81 mg PO DAILY [facility] Last Admin: 04/17/17 11:09 Dose: 81 mg Clopidogrel Bisulfate (Plavix) 75 mg PO DAILY [facility] Last Admin: 04/17/17 10:56 Dose: 75 mg Enoxaparin Sodium (Lovenox) 40 mg SC DAILY [facility] Last Admin: 04/17/17 10:56 Dose: 40 mg Furosemide (Lasix) 40 mg PO DAILY [facility] Last Admin: 04/17/17 11:02 Dose: 40 mg Gabapentin (Neurontin) 100 mg PO DAILY [facility] Last Admin: 04/17/17 10:56 Dose: 100 mg Guaifenesin (Robitussin) 200 mg PO Q4H PRN PRN Reason: Cough and congestion Last Admin: 04/17/17 04:21 Dose: 200 mg Vancomycin/Sodium Chloride (Vancomycin 1 Gm/Ns 200 Ml) 1 gm in 200 mls @ 133.333 mls/hr IVPB Q24H [facility] Stop: 04/20/17 11:01 Last Admin: 04/17/17 10:59 Dose: 133.333 mls/hr Piperacillin Sod/Tazobactam (Sod 3.375 gm/ Sodium Chloride) 100 mls @ 100 mls/ hr IVPB Q8 [facility] Insulin Aspart (Novolog) 0 unit SC [facility] PRN Reason: Protocol Last Admin: 04/17/17 07:24 Dose: Not Given Insulin Detemir (Levemir) [address] [facility] Last Admin: 04/16/17 21:42 Dose: Not Given Levothyroxine Sodium (Synthroid) 50 mcg PO DAILY [facility] Last Admin: 04/17/17 10:56 Dose: 50 mcg Lisinopril (Zestril) 10 mg PO DAILY [facility] Last Admin: 04/17/17 10:56 Dose: Not Given Metformin HCl (Glucophage) 500 mg PO BID [facility] Last Admin: 04/17/17 10:56 Dose: 500 mg Metoprolol Succinate (Toprol Xl) 25 mg PO DAILY [facility] Mupirocin (Bactroban Ointment) 0 gm TOP BID [facility] Last Admin: 04/17/17 10:56 Dose: 1 appl Rosuvastatin Calcium (Crestor) [address] [facility] Last Admin: 04/16/17 22:20 Dose: 5 mg - Labs Labs: 04/17/17 07:54 04/17/17 07:54 PT 13.3 SECONDS (9.7-12.2) H 04/14/17 20:13 INR 1.2 04/14/17 20:13 APTT 28 SECONDS (21-34) 04/14/17 20:13 - Constitutional Appears: Non-toxic, Chronically Ill - Head Exam Head Exam: NORMOCEPHALIC - Eye Exam Eye Exam: absent: Scleral icterus - ENT Exam ENT Exam: Mucous Membranes Dry - Neck Exam Neck Exam: absent: Lymphadenopathy - Respiratory Exam Respiratory Exam: Decreased Breath Sounds - Cardiovascular Exam Cardiovascular Exam: REGULAR RHYTHM - GI/Abdominal Exam GI & Abdominal Exam: Distended, Soft - Rectal Exam Rectal Exam: Deferred Assessment and Plan - Assessment and Plan (Free Text) Plan: await cultures repeat flu ag
[2017-04-17] MEDS ORDERED: Piperacillin/Tazobact 3.375 GM in Sodium Chloride 100 ML IVPB SCH (14:00)
[2017-04-17 15:40] LABS: BARBITURATES, UR NEGATIVE (NEGATIVE); BENZODIAZEPINES, UR NEGATIVE (NEGATIVE); OPIATES, UR NEGATIVE (NEGATIVE); PHENCYCLIDINE, UR NEGATIVE (NEGATIVE)
[2017-04-17] MEDS: Insulin Detemir 100 units/ml Vial (Levemir) SC SCH (21:46)
--- NOTE | 2017-04-17 23:15 | PN ---
DATE: The patient is a 61-year-old female. SUBJECTIVE: The patient is seen and examined in the bedside, looking comfortable, better than yesterday. Coughing blood and shortness of breath are better. Swelling of the leg and pain of the leg is better. The patient states that she is feeling itchiness in the throat. Otherwise, no chest pain. No fever. No chills. PHYSICAL EXAMINATION: VITAL SIGNS: Temperature 100.9, pulse 75, respiratory rate 20, blood pressure 112/64, pulse oximetry 95. HEENT: Head normocephalic, atraumatic. Eyes PERRLA. Extraocular muscles intact. Conjunctivae clear. Nose patent. Mucous membrane moist. NECK: Supple. No carotid bruit. No JVD or thyromegaly. CHEST: Bilaterally symmetrical. HEART: S1 and S2 positive. LUNGS: Clear to auscultation. ABDOMEN: Soft. Bowel sounds positive. No organomegaly. EXTREMITIES: No edema. No cyanosis. NEUROLOGICAL: The patient is awake and alert. Moving all 4 extremities. No focal deficits. LABORATORY DATA: White blood cells 6.6, hemoglobin 8.4, hematocrit 25.6, platelets 240. Sodium 131, potassium 3.9, BUN 19, creatinine 1.3, glucose 87/ MEDICATIONS: Tylenol, Ventolin, albuterol, aspirin, Plavix, Lovenox, Lasix, Neurontin, Robitussin, Zosyn, vancomycin, insulin, Zestril, metformin, metoprolol, Bactroban cream, Crestor. ASSESSMENT AND PLAN: Ms. Taylor Angeles is a 61-year-old lady with anemia, hyponatremia, renal insufficiency, history of asthma, arthritis, venous stasis dermatitis, coronary artery disease, congestive heart failure with preserved ejection fraction, hypertension, history of myocardial infarction, hypothyroidism, peripheral vascular disease. Came with exacerbation of congestive heart failure. The patient has moderate mitral stenosis. EKG shows normal sinus rhythm, possible inferior infarct, age undetermined. Continue aspirin, Plavix, lisinopril, Lasix. Reduce the Lopressor to 25 p.o. q. daily. Discontinue Imdur as per neurologist. Viral upper respiratory tract infection. Febrile on admission with increased cough. Still having fever. Infectious Disease is on the case. Cellulitis of the leg, getting antibiotics. Getting metformin. Getting Synthroid for hypothyroidism. According to Cardiology, the patient cleared for discharge from cardiac point of view. She should follow up with Dr. Johnie Adams' office in [address] Judge's notes also and Dr. Adams' notes. Waiting for the cultures. Meanwhile, continue present treatment. We will follow. Lula Valentine MD
[2017-04-18 07:08] LABS: BASO % 0.3 % (0.0-2.0); EOS % 0.3 % (0.0-4.0); HEMOGLOBIN 8.6 g/dL (11.0-16.0); LYMPH # 0.8 K/uL (1.0-4.3); LYMPH % 14.4 % (20.0-40.0); MEAN CELL VOLUME 85.3 fL (81.0-99.0); MEAN CORPUSCULAR HEMOGLOBIN 27.3 pg (27.0-31.0); MONO # 0.2 K/uL (0.0-0.8); MONO % 3.4 % (0.0-10.0); NEUT # 4.5 K/uL (1.8-7.0); NEUT % 81.6 % (50.0-75.0); NRBC % 0.1 % (0.0-2.0); RBC 3.16 Mil/uL (3.80-5.20); RED CELL DISTRIBUTION WIDTH 15.2 % (11.5-14.5); WHITE BLOOD COUNT 5.5 K/uL (4.8-10.8)
[2017-04-18] MEDS: (Novolog) Insulin Aspart, Recombinant 100 u/ml 10 ml vial SC SCH ×4 (07:30→22:37)
[2017-04-18 08:01] LABS: ALB/GLOB RATIO 1.1 (1.0-2.1); ALBUMIN 3.2 g/dL (3.5-5.0); ALT/SGPT 20 U/L (9-52); AST/SGOT 24 U/L (14-36); BLOOD UREA NITROGEN 15 mg/dL (7-17); CALCIUM 8.5 mg/dl (8.6-10.4); GFR AFRICAN-AMERICAN > 60; GFR NON-AFRICAN AMERICAN 57
[2017-04-18] MEDS: Enoxaparin 40 mg Syringe SC SCH (12:16)
[2017-04-18] MEDS: Metoprolol Succinate 25 mg XL Tab PO SCH (12:17)
[2017-04-18] MEDS: Vancomycin 1 gm/NS 200 ml 1 GM/200 ML BAG IVPB SCH (12:19)
[2017-04-18] MEDS: Levothyroxine 50 MCG TAB PO SCH (12:24)
--- NOTE | 2017-04-18 18:30 | CP.PCM.PN ---
Subjective - Date & Time of Evaluation Date of Evaluation: 04/18/17 Time of Evaluation: 08:00 - Subjective Subjective: cellulitis resolved flu positive will d/c vanco Objective - Vital Signs/Intake and Output Vital Signs (last 24 hours): Temp Pulse Resp BP Pulse Ox 97.3 F L 64 20 91/47 L 95 04/18/17 16:28 04/18/17 16:28 04/18/17 16:28 04/18/17 16:28 04/18/17 16:28 Intake and Output: 04/18/17 04/18/17 06:59 18:59 Intake Total 100 Balance 100 - Medications Medications: Current Medications Acetaminophen (Tylenol 325mg Tab) 650 mg PO Q4 PRN PRN Reason: Pain, moderate (4-7) Last Admin: 04/18/17 12:18 Dose: 650 mg Albuterol (Ventolin Hfa 90 Mcg/Actuation (8 G)) 2 puff IH RQ6 PRN PRN Reason: Shortness of Breath Last Admin: 04/16/17 03:43 Dose: 2 puff Allopurinol (Zyloprim) 100 mg PO DAILY [facility] Last Admin: 04/18/17 12:18 Dose: 100 mg Aspirin (Ecotrin) 81 mg PO DAILY [facility] Last Admin: 04/18/17 12:17 Dose: 81 mg Clopidogrel Bisulfate (Plavix) 75 mg PO DAILY [facility] Last Admin: 04/18/17 12:17 Dose: 75 mg Enoxaparin Sodium (Lovenox) 40 mg SC DAILY [facility] Last Admin: 04/18/17 12:16 Dose: 40 mg Furosemide (Lasix) 40 mg PO DAILY [facility] Last Admin: 04/18/17 12:18 Dose: 40 mg Gabapentin (Neurontin) 100 mg PO DAILY [facility] Last Admin: 04/18/17 12:17 Dose: 100 mg Guaifenesin (Robitussin) 200 mg PO Q4H PRN PRN Reason: Cough and congestion Last Admin: 04/17/17 04:21 Dose: 200 mg Insulin Aspart (Novolog) 0 unit SC [facility] PRN Reason: Protocol Last Admin: 04/18/17 12:19 Dose: Not Given Insulin Detemir (Levemir) 12 unit SC [facility] Last Admin: 04/17/17 21:46 Dose: Not Given Levothyroxine Sodium (Synthroid) 50 mcg PO DAILY [facility] Last Admin: 04/18/17 12:24 Dose: 50 mcg Lisinopril (Zestril) 10 mg PO DAILY [facility] Last Admin: 04/18/17 12:20 Dose: 10 mg Metformin HCl (Glucophage) 500 mg PO BID [facility] Last Admin: 04/18/17 18:26 Dose: 500 mg Metoprolol Succinate (Toprol Xl) 25 mg PO DAILY [facility] Last Admin: 04/18/17 12:17 Dose: 25 mg Mupirocin (Bactroban Ointment) 0 gm TOP BID [facility] Last Admin: 04/18/17 18:26 Dose: 1 appl Oseltamivir Phosphate (Tamiflu Cap) 75 mg PO BID [facility] Stop: 04/22/17 15:48 Last Admin: 04/18/17 18:26 Dose: 75 mg Rosuvastatin Calcium (Crestor) 5 mg PO HS [facility] Last Admin: 04/17/17 21:44 Dose: 5 mg - Labs Labs: 04/18/17 06:58 04/18/17 06:58 PT 13.3 SECONDS (9.7-12.2) H 04/14/17 20:13 INR 1.2 04/14/17 20:13 APTT 28 SECONDS (21-34) 04/14/17 20:13 - Constitutional Appears: Non-toxic, Chronically Ill - Head Exam Head Exam: NORMOCEPHALIC - Eye Exam Eye Exam: PERRL - ENT Exam ENT Exam: Mucous Membranes Dry - Neck Exam Neck Exam: absent: Lymphadenopathy - Respiratory Exam Respiratory Exam: Decreased Breath Sounds - Cardiovascular Exam Cardiovascular Exam: REGULAR RHYTHM - GI/Abdominal Exam GI & Abdominal Exam: Distended, Soft - Exam Speculum exam: Cervical Discharge - Extremities Exam Extremities Exam: Pedal Edema - Back Exam Back Exam: absent: CVA tenderness (L), CVA tenderness (R) - Neurological Exam Neurological Exam: Alert, Awake, CN II-XII Intact, Oriented x3 Neuro motor strength exam: Left Upper Extremity: 5, Right Upper Extremity: 5, Left Lower Extremity: 5, Right Lower Extremity: 5 Assessment and Plan - Assessment and Plan (Free Text) Plan: cont rx flu
--- NOTE | 2017-04-18 22:34 | PN ---
DATE: SUBJECTIVE: The patient is a 61-year-old female. The patient was seen and examined on the bedside, looking comfortable, better than yesterday, more awake and alert. Her cellulitis of the leg got better. No fever. No chills. No fatigue. No hematuria, hematochezia. No headache. No dizziness. Has flu, so ID discontinued the vancomycin and getting Tamiflu. PHYSICAL EXAMINATION: VITAL SIGNS: Temperature 97.3, pulse 64, respiratory rate 20, blood pressure 91/46, pulse oximetry 95. HEENT: Head is normocephalic, atraumatic. Eyes PERRLA. Extraocular muscles intact. Conjunctivae clear. Nose patent. Mucous membrane moist. NECK: Supple. No carotid bruit. No JVD or thyromegaly. CHEST: Bilaterally symmetrical. HEART: S1 and S2 positive. LUNGS: Clear to auscultation. ABDOMEN: Soft. Bowel sounds positive. No organomegaly. EXTREMITIES: No edema. No cyanosis. NEUROLOGICAL: The patient is awake and alert. Moving all 4 extremities. No focal deficits. LABORATORY DATA: White blood cells 5.5, hemoglobin 8.6, hematocrit 26.9, platelets 238. Sodium 131, potassium 3.7, BUN 15, creatinine 1.0, glucose 82. MEDICATIONS: Ventolin, Allopurinol, Ecotrin, Plavix, Lovenox, Lasix, Neurontin, Robitussin, NovoLog, Levemir, Synthroid, Zestril, Glucophage, Toprol, Tamiflu, Crestor. ASSESSMENT AND PLAN: Ms. Taylor Angeles with anemia; hyponatremia; has influenza, getting Tamiflu, today is the second day; cellulitis of the leg, improved, no more vancomycin. Dr. Judge, Infectious Disease is on the case. The patient has history of congestive heart failure, chronic obstructive pulmonary disease, renal insufficiency, history of asthma, arthritis, venous stasis dermatitis, coronary artery disease, history of myocardial infarction, hypothyroidism, peripheral vascular disease. Continue present treatment. Gastrointestinal and deep venous thrombosis prophylaxis. Repeat labs. We will follow up. Lula Valentine MD [facility] # [id number]
[2017-04-18] MEDS: Insulin Detemir 100 units/ml Vial (Levemir) SC SCH (22:37)
[2017-04-19] MEDS: (Novolog) Insulin Aspart, Recombinant 100 u/ml 10 ml vial SC SCH ×4 (08:28→21:43)
[2017-04-19] MEDS: Metoprolol Succinate 25 mg XL Tab PO SCH (10:44)
[2017-04-19] MEDS: Enoxaparin 40 mg Syringe SC SCH (10:45)
[2017-04-19] MEDS: Levothyroxine 50 MCG TAB PO SCH (10:56)
[2017-04-19] MEDS: Insulin Detemir 100 units/ml Vial (Levemir) SC SCH (21:43)
--- NOTE | 2017-04-20 03:37 | PN ---
DATE: SUBJECTIVE: The patient is a 61-year-old female. The patient seen and examined at the bedside, looking comfortable, feeling better, fully awake and oriented today, still complaining of body pain. States coughing is better. Shortness of breath is better. No more fever, no nausea, vomiting or diarrhea. No hematuria or hematochezia. PHYSICAL EXAMINATION: VITAL SIGNS: Temperature 97.4, pulse 70, blood pressure 127/71, respiratory rate 20. HEENT: Head normocephalic, atraumatic. Eyes PERRLA. Extraocular muscles intact. Conjunctivae clear. Nose patent. NECK: Supple. No carotid bruit, JVD, or thyromegaly. CHEST: Bilaterally symmetrical. HEART: S1 and S2 positive. LUNGS: Clear to auscultation. ABDOMEN: Soft. Bowel sounds positive. No organomegaly. EXTREMITIES: No edema. No cyanosis. NEUROLOGIC: The patient is awake and alert. Moving all four extremities. No focal deficits. LABORATORY DATA: White blood cells 5.5, hemoglobin 8.6, hematocrit 26.9, platelets 238. Glucose 98, 92. ASSESSMENT AND PLAN: Ms. Taylor Angeles is a 61-year-old lady with anemia, proteinuria, influenza type A and B positive, history of congestive heart failure, cardiomyopathy, hypertension, stasis dermatitis of the legs, noncompliant, getting Tamiflu, history of cellulitis of the legs, was on vancomycin, improved. Dr. Judge stopped the vancomycin. Renal insufficiency, venous stasis dermatitis, history of myocardial infarction, hypothyroidism, peripheral vascular disease, continue present treatment, gastrointestinal and deep vein thrombosis, repeat labs. ID is on the case. Lula Valentine MD
[2017-04-20] MEDS ORDERED: Levothyroxine 50 MCG TAB PO SCH (06:30)
[2017-04-20] MEDS: (Novolog) Insulin Aspart, Recombinant 100 u/ml 10 ml vial SC SCH ×2 (08:05→11:23)
[2017-04-20 08:50] VITALS: BP 123/65; TEMP 97.8; O2SAT 97
[2017-04-20 08:54] VITALS: PULSE 59
[2017-04-20] MEDS: Metoprolol Succinate 25 mg XL Tab PO SCH (09:15)
[2017-04-20] MEDS: Enoxaparin 40 mg Syringe SC SCH (09:16)
--- NOTE | 2017-04-20 14:27 | CP.PCM.PN ---
Subjective - Date & Time of Evaluation Date of Evaluation: 04/20/17 Time of Evaluation: 14:27 - Subjective Subjective: PATIENT WAS CHF, FEVER AND SEVERE DIABETIC NEUROPATHY; DENIES CHEST PAIN, SOB NAUSEA OR VOMITING NO SIGN OF DISTRESS NOTED Objective - Vital Signs/Intake and Output Vital Signs (last 24 hours): Temp Pulse Resp BP Pulse Ox 97.8 F 59 L 20 123/65 97 04/20/17 08:00 04/20/17 08:45 04/20/17 08:00 04/20/17 09:15 04/20/17 08:00 Intake and Output: 04/20/17 04/20/17 06:59 18:59 Intake Total 360 Balance 360 - Medications Medications: Current Medications Acetaminophen (Tylenol 325mg Tab) 650 mg PO Q4 PRN PRN Reason: Pain, moderate (4-7) Last Admin: 04/19/17 03:50 Dose: 650 mg Albuterol (Ventolin Hfa 90 Mcg/Actuation (8 G)) 2 puff IH RQ6 PRN PRN Reason: Shortness of Breath Last Admin: 04/16/17 03:43 Dose: 2 puff Allopurinol (Zyloprim) 100 mg PO DAILY [facility] Last Admin: 04/20/17 09:17 Dose: 100 mg Aspirin (Ecotrin) 81 mg PO DAILY [facility] Last Admin: 04/20/17 09:15 Dose: 81 mg Clopidogrel Bisulfate (Plavix) 75 mg PO DAILY [facility] Last Admin: 04/20/17 09:15 Dose: 75 mg Enoxaparin Sodium (Lovenox) 40 mg SC DAILY [facility] Last Admin: 04/20/17 09:16 Dose: 40 mg Furosemide (Lasix) 40 mg PO DAILY [facility] Last Admin: 04/20/17 09:15 Dose: 40 mg Gabapentin (Neurontin) 100 mg PO DAILY [facility] Last Admin: 04/20/17 09:15 Dose: 100 mg Guaifenesin (Robitussin) 200 mg PO Q4H PRN PRN Reason: Cough and congestion Last Admin: 04/17/17 04:21 Dose: 200 mg Insulin Aspart (Novolog) 0 unit SC [facility] PRN Reason: Protocol Last Admin: 04/20/17 11:23 Dose: Not Given Insulin Detemir (Levemir) 12 unit SC [facility] Last Admin: 01/25/18 21:43 Dose: Not Given Levothyroxine Sodium (Synthroid) 50 mcg PO DAILY@0630 [facility] Lisinopril (Zestril) 10 mg PO DAILY [facility] Last Admin: 04/20/17 09:15 Dose: 10 mg Metformin HCl (Glucophage) 500 mg PO BID [facility] Last Admin: 04/20/17 09:15 Dose: 500 mg Metoprolol Succinate (Toprol Xl) 25 mg PO DAILY [facility] Last Admin: 04/20/17 09:15 Dose: 25 mg Mupirocin (Bactroban Ointment) 0 gm TOP BID [facility] Last Admin: 04/20/17 09:17 Dose: 1 appl Oseltamivir Phosphate (Tamiflu Cap) 75 mg PO BID [facility] Stop: 04/22/17 15:48 Last Admin: 04/20/17 09:15 Dose: 75 mg Rosuvastatin Calcium (Crestor) 5 mg PO HS [facility] Last Admin: 04/19/17 21:40 Dose: 5 mg - Labs Labs: 04/18/17 06:58 04/18/17 06:58 PT 13.3 SECONDS (9.7-12.2) H 04/14/17 20:13 INR 1.2 04/14/17 20:13 APTT 28 SECONDS (21-34) 04/14/17 20:13 Assessment and Plan - Assessment and Plan (Free Text) Assessment: PATIENT SEEN AND EXAMINED AT THE BEDSIDE LUNG SOUND CLEAR NATALIE; OCCASIONAL COUGH BUT PATIENT IS GETTING ROBUTUSSIN ECHO REVIEW IS EF IS GREATER THAN 40 PATIENT IS RECEIVING TAMIFLU ( COMPLETE DAY 3 IN HOUSE) AFEBRILE POST [address] HAN AND DR TORRES WHO CLEAR THE PATIENT FOR DC FOLLOW UP WITH DR TORRES IIN 1-2 WEEKS AT HER OFFICE ---CALL FOR APPOINTMENT FOLLOW UP WITH DR HAN IN 1-2 WEEKS AT HIS OFFICE ---CALL FOR APPOINTMENT CONTINUE ALL YOUR MEDICATION DIRECTED AND PRESCRIPTION WERE GIVEN FOR ALL YOUR HOME MEDS CONTINUE TAMIFLU 75 MG BY MOUTH FOR 2 MORE DAYS ACTIVITY TOLERATED CALL DR TORRES OR GO TO THE EMERGENCY ROOM IF SYMPTOMS RETURN OR WORSENING DISCUSS WITH PATIENT WHO AGREE AND VERBALIZED UNDERSTANDING
== END 2017-04-20 15:50 | disposition home or self-care (01) | DRG 127 ==
LOC: C.ER 18:38 → C.9E 22:24 → C.5S 04-15 15:45
PROVIDERS: ADMIT Internal Medicine; ATTEND Internal Medicine
DX: I11.0 Hypertensive heart disease with heart failure (principal); E11.42 Type 2 diabetes mellitus with diabetic polyneuropathy; E11.51 Type 2 diabetes mellitus with diabetic peripheral angiopathy without gangrene; E83.51 Hypocalcemia; I27.20 Pulmonary hypertension, unspecified; I42.9 Cardiomyopathy, unspecified; L03.116 Cellulitis of left lower limb; E87.1 Hypo-osmolality and hyponatremia; J11.1 Influenza due to unidentified influenza virus with other respiratory manifestations; I50.32 Chronic diastolic (congestive) heart failure; I87.2 Venous insufficiency (chronic) (peripheral); Z91.19 Patient's noncompliance with other medical treatment and regimen; E03.9 Hypothyroidism, unspecified; E78.5 Hyperlipidemia, unspecified; G89.29 Other chronic pain; I25.10 Atherosclerotic heart disease of native coronary artery without angina pectoris; I25.2 Old myocardial infarction; Z95.1 Presence of aortocoronary bypass graft; D64.9 Anemia, unspecified

== ENCOUNTER 2017-05-13 18:08 | Inpatient (IN) | payer OTHER ==
[2017-05-13 18:08] VITALS: BMI 29.2
[2017-05-13] MEDS ORDERED: Albuterol-Ipratrop 3 mg / 0.5 (3 ml) UD INH STA ×2 (18:32→20:18)
[2017-05-13] MEDS ORDERED: Albuterol-Ipratrop 3 mg / 0.5 (3 ml) UD ONE ×2 (18:50→19:03)
[2017-05-13 19:06] LABS: BASO # 0.1 K/uL (0.0-0.2); BASO % 2.4 % (0.0-2.0); EOS # 0.2 K/uL (0.0-0.7); EOS % 3.2 % (0.0-4.0); HEMOGLOBIN 9.4 g/dL (11.0-16.0); LYMPH # 1.1 K/uL (1.0-4.3); MEAN CELL VOLUME 85.4 fL (81.0-99.0); MEAN CORPUSCULAR HEMOGLOBIN 27.6 pg (27.0-31.0); MEAN CORPUSCULAR HGB CONC 32.3 g/dL (33.0-37.0); MEAN PLATELET VOLUME 8.8 fL (7.2-11.7); MONO # 0.2 K/uL (0.0-0.8); MONO % 3.5 % (0.0-10.0); NEUT # 3.9 K/uL (1.8-7.0); NEUT % 70.9 % (50.0-75.0); NRBC % 0.1 % (0.0-2.0); RBC 3.41 Mil/uL (3.80-5.20); RED CELL DISTRIBUTION WIDTH 16.4 % (11.5-14.5); WHITE BLOOD COUNT 5.5 K/uL (4.8-10.8)
[2017-05-13 19:08] LABS: ABG ALLEN TEST P; ARTERIAL BLOOD GAS HCO3 24.8 mmol/L (21-28); ARTERIAL BLOOD GAS O2 SAT 98.7 % (95-98); ARTERIAL BLOOD GAS PCO2 37 mm/Hg (35-45); ARTERIAL BLOOD GAS PH 7.42 (7.35-7.45); ARTERIAL BLOOD GAS PO2 125 mm/Hg (80-100); ARTERIAL BLOOD GAS TCO2 25.1 mmol/L (22-28)
[2017-05-13 19:12] LABS: PROTHROMBIN TIME 10.7 SECONDS (9.7-12.2)
[2017-05-13 19:18] LABS: ALB/GLOB RATIO 1.2 (1.0-2.1); ALBUMIN 3.6 g/dL (3.5-5.0); ALT/SGPT 21 U/L (9-52); AST/SGOT 16 U/L (14-36); BLOOD UREA NITROGEN 23 mg/dL (7-17); CALCIUM 9.3 mg/dl (8.6-10.4); GFR AFRICAN-AMERICAN > 60; GFR NON-AFRICAN AMERICAN 57
[2017-05-13 19:28] LABS: B-TYPE NATRIURETIC PEPTIDE 2550 pg/mL (0-900)
--- NOTE | 2017-05-13 19:49 | C.PDOC ---
History Of Present Illness 61 year old female presents to the ER via EMS in severe respiratory distress. Patient state she was at [facility] charging her phone. patient has had multiple frequent evaluations in [facility], no treatment given in the field. Patient states she drinks fluids liberally because the lasix makes her mouth dry. Denies chest pain, fever, or chills. Time Seen by Provider: 05/13/17 18:31 Chief Complaint (Nursing): Shortness Of Breath History Per: Patient History/Exam Limitations: no limitations Onset/Duration Of Symptoms: Hrs Current Symptoms Are (Timing): Still Present Current Respiratory Medications: None Associated Symptoms: denies: Fever, Chills, Chest Pain Past Medical History Reviewed: Historical Data, Nursing Documentation, Vital Signs Vital Signs: Last Vital Signs Temp 98 F 05/13/17 18:27 Pulse 81 05/13/17 18:27 Resp 28 H 05/13/17 18:27 BP 116/39 L 05/13/17 18:27 Pulse Ox 100 05/13/17 20:30 - Medical History PMH: Arthritis, Asthma, CAD, CHF, COPD, Diabetes, HTN, Hypercholesterolemia, Hyperlipidemia, Hypothyroidism, Peripheral Edema Surgical History: CABG, Hernia Repair, Tonsillectomy - [facility] Procedures CORONAR ARTERIOGR-2 CATH (11/19/13) DRAINAGE OF FACE SKIN, EXTERNAL APPROACH (02/13/17) INSERTION OF INFUSION DEV INTO SUP VENA CAVA, PERC APPROACH (10/02/16) LEFT HEART CARDIAC CATH (11/19/13) LT HEART ANGIOCARDIOGRAM (11/19/13) MEASURE CARDIAC SAMPL & PRESSURE, BILATERAL, PERC (03/11/16) PLAIN RADIOGRAPHY OF MULT COR ART USING L OSM CONTRAST (03/11/16) PLAIN RADIOGRAPHY OF R & L HEART USING L OSM CONTRAST (03/11/16) RELEASE PERITONEUM, OPEN APPROACH (12/27/16) SUPPLEMENT ABDOMINAL WALL WITH SYNTH SUB, OPEN APPROACH (12/27/16) Family History: States: Unknown Family Hx - Social History Hx Tobacco Use: No Hx Alcohol Use: No Hx Substance Use: No - Immunization History Hx Tetanus Toxoid Vaccination: No Hx Influenza Vaccination: No Hx Pneumococcal Vaccination: Yes Review Of Systems Constitutional: Negative for: Fever, Chills Cardiovascular: Negative for: Chest Pain Respiratory: Positive for: Shortness of Breath Gastrointestinal: Negative for: Nausea, Vomiting Physical Exam - Physical Exam Appears: Other (Moderate to severe respiratory distress) Skin: Normal Color, Warm, Dry Head: Atraumatic, Normacephalic Eye(s): bilateral: Normal Inspection Oral Mucosa: Moist Neck: Normal, Supple Chest: Symmetrical, No Tenderness Cardiovascular: Rhythm Regular, JVD Respiratory: Rales (At the bases), No Rhonchi, Wheezing (Scattered) Gastrointestinal/Abdominal: Soft, No Tenderness, Other (Obewe) Extremity: Pedal Edema (4/4 tense pitting) Neurological/Psych: Oriented x3, Normal Speech ED Course And Treatment - Laboratory Results Result Diagrams: 05/13/17 19:01 05/13/17 19:01 Lab Interpretation: Abnormal (BNP 2550 H, trop neg, d-dimer neg, ABG wnl) ECG: Interpreted By Me ECG Rhythm: Sinus Rhythm ECG Interpretation: Normal Rate From EC O2 Sat by Pulse Oximetry: 100 Pulse Ox Interpretation: Normal - Radiology CXR: Interpreted by Me CXR Interpretation: Yes: Heart Size, Other (CHF) Reevaluation Time: 20:18 Reassessment Condition: Improved - Physician Consult Information Outcome Of Conversation: 2020: d/w Dr. Angel Perales- Medicine, ok to admit. Critical Care Time - Critical Care Note Total Time (in mins): 90 Documented critical care: time excludes all time spent performing seperately billable procedures. Medical Decision Making Medical Decision Making: copd/chf exacerbation overdrinking her diuretics Disposition Doctor Will See Patient In The: Hospital Counseled Patient/Family Regarding: Studies Performed, Diagnosis - Disposition Disposition: HOSPITALIZED Disposition Time: 20:20 Condition: GOOD - Clinical Impression Clinical Impression: CHF (congestive heart failure), COPD (chronic obstructive pulmonary disease) - Scribe Statement The provider has reviewed the documentation as recorded by the Scribe Alvaro Edwards All medical record entries made by the Scribe were at my direction and personally dictated by me. I have reviewed the chart and agree that the record accurately reflects my personal performance of the history, physical exam, medical decision making, and the department course for this patient. I have also personally directed, reviewed, and agree with the discharge instructions and disposition.
[2017-05-13 19:58] LABS: URINE BILIRUBIN NEGATIVE (NEGATIVE); URINE BLOOD NEGATIVE (NEGATIVE); URINE CLARITY Clear (Clear); URINE COLOR Colorless (YELLOW); URINE GLUCOSE (UA) NORMAL (Normal); URINE LEUKOCYTE ESTERASE NEG Leu/uL (Negative); URINE NITRATE NEGATIVE (NEGATIVE); URINE PROTEIN NEGATIVE (NEGATIVE); URINE UROBILINOGEN NORMAL mg/dL (0.2-1.0)
[2017-05-13 20:11] LABS: BARBITURATES, UR NEGATIVE (NEGATIVE); BENZODIAZEPINES, UR NEGATIVE (NEGATIVE); OPIATES, UR NEGATIVE (NEGATIVE); PHENCYCLIDINE, UR NEGATIVE (NEGATIVE)
[2017-05-13] MEDS ORDERED: guaiFENesin 200 mg/10 ml Syrup UD PO PRN (21:15)
--- NOTE | 2017-05-13 21:31 | CP.PCM.HP ---
Past Patient History - Infectious Disease Hx of Infectious Diseases: None - Tetanus Immunizations Tetanus Immunization: Unknown - Past Medical History & Family History Past Medical History?: Yes - Past Social History Smoking Status: Never Smoked - CARDIAC Hx Congestive Heart Failure: Yes Hx Hypercholesterolemia: Yes Hx Hypertension: Yes Hx Peripheral Edema: Yes - PULMONARY Hx Asthma: Yes Hx Chronic Obstructive Pulmonary Disease (COPD): Yes - NEUROLOGICAL Hx Neurological Disorder: No - HEENT Other/Comment: Uses eyeglasses - RENAL Hx Chronic Kidney Disease: No - ENDOCRINE/METABOLIC Hx Hypothyroidism: Yes - HEMATOLOGICAL/ONCOLOGICAL Hx Anemia: No Hx Human Immunodeficiency Virus (HIV): No - INTEGUMENTARY Hx Dermatological Problems: Yes Other/Comment: Hx non-healing wound LLE - MUSCULOSKELETAL/RHEUMATOLOGICAL Hx Arthritis: Yes - GASTROINTESTINAL Hx Gastrointestinal Disorders: No - GENITOURINARY/GYNECOLOGICAL Hx Genitourinary Disorders: No - PSYCHIATRIC Hx Substance Use: No - SURGICAL HISTORY Hx Coronary Artery Bypass Graft: Yes Hx Tonsillectomy: Yes - ANESTHESIA Hx Anesthesia: Yes Hx Anesthesia Reactions: No Hx Malignant Hyperthermia: No Meds Allergies/Adverse Reactions: Allergies Allergy/AdvReac Type Severity Reaction Status Date / Time No Known Allergies Allergy Verified 05/13/17 18:16 Results - Vital Signs Recent Vital Signs: Last Vital Signs Temp 98 F 05/13/17 18:27 Pulse 81 05/13/17 18:27 Resp 28 H 05/13/17 18:27 BP 116/39 L 05/13/17 18:27 Pulse Ox 100 05/13/17 21:25 - Labs Result Diagrams: 05/13/17 19:01 05/13/17 19:01 Labs: Laboratory Results - last 24 hr 05/13/17 05/13/17 05/13/17 19:00 19:01 19:01 WBC 5.5 RBC 3.41 L Hgb 9.4 L Hct 29.1 L MCV 85.4 MCH 27.6 MCHC 32.3 L RDW 16.4 H Plt Count 241 MPV 8.8 Neut % (Auto) 70.9 Lymph % (Auto) 20.0 [place] % (Auto) 3.5 Eos % (Auto) 3.2 Baso % (Auto) 2.4 H Neut # (Auto) 3.9 Lymph # (Auto) 1.1 [place] # (Auto) 0.2 Eos # (Auto) 0.2 Baso # (Auto) 0.1 PT INR APTT D-Dimer, Quantitative Puncture Site Rra pCO2 37 pO2 125 H HCO3 24.8 ABG pH 7.42 ABG Total CO2 25.1 ABG O2 Saturation 98.7 H ABG Base Excess -0.2 Negrito Test P ABG Potassium 4.3 A-a O2 Difference 28.0 Respiratory Index 0.2 Sodium 141.0 140 Chloride 113.0 H 104 Glucose 93 Lactate 0.8 Liter Flow 2.0 FiO2 28.0 Potassium 4.5 Carbon Dioxide 28 Anion Gap 12 BUN 23 H Creatinine 1.0 Est GFR ( Amer) > 60 Est GFR (Non-Af Amer) 57 Random Glucose 95 Calcium 9.3 Total Bilirubin 0.4 AST 16 ALT 21 Alkaline Phosphatase 110 Troponin I < 0.0120 NT-Pro-B Natriuret Pep 2550 H Total Protein 6.7 Albumin 3.6 Globulin 3.1 Albumin/Globulin Ratio 1.2 Arterial Blood Potassium 4.3 Urine Color Urine Clarity Urine pH Ur Specific [place] Urine Protein Urine Glucose (UA) Urine Ketones Urine Blood Urine Nitrate Urine Bilirubin Urine Urobilinogen Ur Leukocyte Esterase Urine WBC (Auto) Urine RBC (Auto) Digoxin Urine Opiates Screen Urine Methadone Screen Ur Barbiturates Screen Ur Phencyclidine Scrn Ur Amphetamines Screen U Benzodiazepines Scrn U Oth Cocaine Metabols U Cannabinoids Screen Alcohol, Quantitative < 10 Influenza Typ A,B (EIA) 05/13/17 05/13/17 05/13/17 19:01 19:01 19:02 WBC RBC Hgb Hct MCV MCH MCHC RDW Plt Count MPV Neut % (Auto) Lymph % (Auto) [place] % (Auto) Eos % (Auto) Baso % (Auto) Neut # (Auto) Lymph # (Auto) [place] # (Auto) Eos # (Auto) Baso # (Auto) PT 10.7 INR 1.0 APTT 30 D-Dimer, Quantitative 240 Puncture Site pCO2 pO2 HCO3 ABG pH ABG Total CO2 ABG O2 Saturation ABG Base Excess [place] Test ABG Potassium A-a O2 Difference Respiratory Index Sodium Chloride Glucose Lactate Liter Flow FiO2 Potassium Carbon Dioxide Anion Gap BUN Creatinine Est GFR ( Amer) Est GFR (Non-Af Amer) Random Glucose Calcium Total Bilirubin AST ALT Alkaline Phosphatase Troponin I NT-Pro-B Natriuret Pep Total Protein Albumin Globulin Albumin/Globulin Ratio Arterial Blood Potassium Urine Color Urine Clarity Urine pH Ur Specific [place] Urine Protein Urine Glucose (UA) Urine Ketones Urine Blood Urine Nitrate Urine Bilirubin Urine Urobilinogen Ur Leukocyte Esterase Urine WBC (Auto) Urine RBC (Auto) Digoxin < 0.4 L Urine Opiates Screen Urine Methadone Screen Ur Barbiturates Screen Ur Phencyclidine Scrn Ur Amphetamines Screen U Benzodiazepines Scrn U Oth Cocaine Metabols U Cannabinoids Screen Alcohol, Quantitative Influenza Typ A,B (EIA) Negative for flu a/b 05/13/17 05/13/17 19:48 19:48 WBC RBC Hgb Hct MCV MCH MCHC RDW Plt Count MPV Neut % (Auto) Lymph % (Auto) [place] % (Auto) Eos % (Auto) Baso % (Auto) Neut # (Auto) Lymph # (Auto) [place] # (Auto) Eos # (Auto) Baso # (Auto) PT INR APTT D-Dimer, Quantitative Puncture Site pCO2 pO2 HCO3 ABG pH ABG Total CO2 ABG O2 Saturation ABG Base Excess [place] Test ABG Potassium A-a O2 Difference Respiratory Index Sodium Chloride Glucose Lactate Liter Flow FiO2 Potassium Carbon Dioxide Anion Gap BUN Creatinine Est GFR ( Amer) Est GFR (Non-Af Amer) Random Glucose Calcium Total Bilirubin AST ALT Alkaline Phosphatase Troponin I NT-Pro-B Natriuret Pep Total Protein Albumin Globulin Albumin/Globulin Ratio Arterial Blood Potassium Urine Color Colorless Urine Clarity Clear Urine pH 6.0 Ur Specific [place] 1.009 Urine Protein Negative Urine Glucose (UA) Normal Urine Ketones Negative Urine Blood Negative Urine Nitrate Negative Urine Bilirubin Negative Urine Urobilinogen Normal Ur Leukocyte Esterase Neg Urine WBC (Auto) 1 Urine RBC (Auto) < 1 Digoxin Urine Opiates Screen Negative Urine Methadone Screen Negative Ur Barbiturates Screen Negative Ur Phencyclidine Scrn Negative Ur Amphetamines Screen Negative U Benzodiazepines Scrn Negative U Oth Cocaine Metabols Negative U Cannabinoids Screen Negative Alcohol, Quantitative Influenza Typ A,B (EIA)
[2017-05-13] MEDS: (Novolin R) Insulin Human Regular 100 units/ml vial SC SCH ×2 (21:46→21:59)
[2017-05-13] MEDS: Insulin Detemir 100 units/ml Vial (Levemir) SC SCH (22:54)
[2017-05-14] MEDS: Albuterol-Ipratrop 3 mg / 0.5 (3 ml) UD INH SCH ×3 (02:00→14:15)
[2017-05-14] MEDS: Levothyroxine 50 MCG TAB PO SCH (06:30)
[2017-05-14] MEDS: (Novolin R) Insulin Human Regular 100 units/ml vial SC SCH ×4 (09:00→21:35)
--- NOTE | 2017-05-14 09:13 | RAD ---
PROCEDURE: CHEST RADIOGRAPH, 1 VIEW HISTORY: SOB COMPARISON: 04/14/2017 FINDINGS: LUNGS: Clear. PLEURA: No pneumothorax or pleural fluid seen. CARDIOVASCULAR: CABG. Normal heart size. No congestive change. OSSEOUS STRUCTURES: No significant abnormalities. VISUALIZED UPPER ABDOMEN: Normal. OTHER FINDINGS: None. IMPRESSION: No active disease.
[2017-05-14] MEDS: Enoxaparin 40 mg Syringe SC SCH (12:05)
[2017-05-14] MEDS: Metoprolol Succinate 50 mg XL Tab PO SCH (12:05)
--- NOTE | 2017-05-14 13:06 | CP.PCM.CON ---
History of Present Illness - History of Present Illness History of Present Illness: 61 year old female presents to the ER via EMS in severe respiratory distress. Patient state she was at [facility] charging her phone. patient has had multiple frequent evaluations in [facility], no treatment given in the field. Patient states she drinks fluids liberally because the lasix makes her mouth dry. Denies chest pain, fever, or chills. Chief Complaint (Nursing): Shortness Of Breath Past Medical History PMH: Arthritis, Asthma, CAD-s/p CABG 2012 at [facility] CHF clinical: echo 03/2017 directly seen by me --> LVH, normal LVEF, LAE mod, mitral annular calcification causing mild MS, mild PULM HTN, Grade 2 DD COPD, Diabetes, HTN, Hypercholesterolemia, Hypothyroidism, Peripheral Edema Surgical History: CABG, Hernia Repair, Tonsillectomy Review of Systems - Review of Systems All systems: reviewed and no additional remarkable complaints except Past Patient History - Infectious Disease Hx of Infectious Diseases: None - Tetanus Immunizations Tetanus Immunization: Unknown - Past Medical History & Family History Past Medical History?: Yes - Past Social History Smoking Status: Never Smoked - CARDIAC Hx Congestive Heart Failure: Yes Hx Hypercholesterolemia: Yes Hx Hypertension: Yes Hx Peripheral Edema: Yes - PULMONARY Hx Asthma: Yes Hx Chronic Obstructive Pulmonary Disease (COPD): Yes - NEUROLOGICAL Hx Neurological Disorder: No - HEENT Other/Comment: Uses eyeglasses - RENAL Hx Chronic Kidney Disease: No - ENDOCRINE/METABOLIC Hx Hypothyroidism: Yes - HEMATOLOGICAL/ONCOLOGICAL Hx Anemia: No Hx Human Immunodeficiency Virus (HIV): No - INTEGUMENTARY Hx Dermatological Problems: Yes Other/Comment: Hx non-healing wound LLE - MUSCULOSKELETAL/RHEUMATOLOGICAL Hx Arthritis: Yes - GASTROINTESTINAL Hx Gastrointestinal Disorders: No - GENITOURINARY/GYNECOLOGICAL Hx Genitourinary Disorders: No - PSYCHIATRIC Hx Substance Use: No - SURGICAL HISTORY Hx Coronary Artery Bypass Graft: Yes Hx Tonsillectomy: Yes - ANESTHESIA Hx Anesthesia: Yes Hx Anesthesia Reactions: No Hx Malignant Hyperthermia: No Meds Allergies/Adverse Reactions: Allergies Allergy/AdvReac Type Severity Reaction Status Date / Time No Known Allergies Allergy Verified 05/13/17 18:16 - Medications Medications: Current Medications Acetaminophen (Tylenol 325mg Tab) 650 mg PO Q4 PRN PRN Reason: Pain, moderate (4-7) Albuterol/Ipratropium (Duoneb 3 Mg/0.5 Mg (3 Ml) Ud) 3 ml INH RQ6 [facility] Last Admin: 05/14/17 02:00 Dose: 3 ml Allopurinol (Zyloprim) 100 mg PO DAILY [facility] Aspirin (Ecotrin) 81 mg PO DAILY [facility] Clopidogrel Bisulfate (Plavix) 75 mg PO DAILY [facility] Enoxaparin Sodium (Lovenox) 40 mg SC DAILY [facility] Furosemide (Lasix) 40 mg IVP DAILY [facility] Gabapentin (Neurontin) 100 mg PO DAILY [facility] Guaifenesin (Robitussin) 200 mg PO Q4H PRN PRN Reason: Cough and congestion Ceftriaxone Sodium 1 gm/ (Sodium Chloride) 100 mls @ 100 mls/hr IVPB DAILY [facility] Azithromycin 500 mg/ Sodium (Chloride) 250 mls @ 250 mls/hr IVPB DAILY [facility] Insulin Detemir (Levemir) 12 unit SC HS [facility] Last Admin: 05/13/17 22:54 Dose: 12 unit Insulin Human Regular (Novolin R) 0 unit SC ACHS [facility] PRN Reason: Protocol Last Admin: 05/14/17 11:51 Dose: Not Given Isosorbide Mononitrate (Imdur) 60 mg PO DAILY [facility] Levothyroxine Sodium (Synthroid) 50 mcg PO DAILY@0630 [facility] Last Admin: 05/14/17 06:30 Dose: 50 mcg Lisinopril (Zestril) 10 mg PO DAILY [facility] Metformin HCl (Glucophage) 500 mg PO BID [facility] Metoprolol Succinate (Toprol Xl) 50 mg PO DAILY [facility] Mupirocin (Bactroban Ointment) 1 gm TOP BID [facility] Ondansetron HCl (Zofran Odt) 4 mg PO Q8 PRN PRN Reason: Nausea/Vomiting Oseltamivir Phosphate (Tamiflu Cap) 75 mg PO BID [facility] Rosuvastatin Calcium (Crestor) 5 mg PO HS [facility] Physical Exam - Constitutional Appears: No Acute Distress - Head Exam Head Exam: ATRAUMATIC, NORMAL INSPECTION, NORMOCEPHALIC - Eye Exam Eye Exam: EOMI, Normal appearance, PERRL - ENT Exam ENT Exam: Mucous Membranes Moist, Normal Oropharynx - Respiratory Exam Respiratory Exam: Clear to Auscultation Bilateral, NORMAL BREATHING PATTERN. absent: Rales, Rhonchi, Wheezes - Cardiovascular Exam Cardiovascular Exam: REGULAR RHYTHM, +S1, +S2, Systolic Murmur. absent: Gallop , Rubs, +S4 - GI/Abdominal Exam GI & Abdominal Exam: Normal Bowel Sounds, Soft. absent: Tenderness - Extremities Exam Extremities exam: Negative for: normal inspection (B/L 2+ LE edema with erythema and mild warmth) - Neurological Exam Neurological exam: Alert, Oriented x3 - Skin Skin Exam: Erythema Results - Vital Signs Recent Vital Signs: Last Vital Signs Temp 97.6 F 05/14/17 11:25 Pulse 76 05/14/17 11:25 Resp 18 05/14/17 11:25 BP 143/55 L 05/14/17 11:25 Pulse Ox 100 05/14/17 11:25 - Labs Result Diagrams: 05/13/17 19:01 05/13/17 19:01 Labs: Laboratory Results - last 24 hr 05/13/17 05/13/17 05/13/17 19:00 19:01 19:01 WBC 5.5 RBC 3.41 L Hgb 9.4 L Hct 29.1 L MCV 85.4 MCH 27.6 MCHC 32.3 L RDW 16.4 H Plt Count 241 MPV 8.8 Neut % (Auto) 70.9 Lymph % (Auto) 20.0 [place] % (Auto) 3.5 Eos % (Auto) 3.2 Baso % (Auto) 2.4 H Neut # (Auto) 3.9 Lymph # (Auto) 1.1 [place] # (Auto) 0.2 Eos # (Auto) 0.2 Baso # (Auto) 0.1 PT INR APTT D-Dimer, Quantitative Puncture Site Rra pCO2 37 pO2 125 H HCO3 24.8 ABG pH 7.42 ABG Total CO2 25.1 ABG O2 Saturation 98.7 H ABG Base Excess -0.2 Negrito Test P ABG Potassium 4.3 A-a O2 Difference 28.0 Respiratory Index 0.2 Sodium 141.0 140 Chloride 113.0 H 104 Glucose 93 Lactate 0.8 Liter Flow 2.0 FiO2 28.0 Potassium 4.5 Carbon Dioxide 28 Anion Gap 12 BUN 23 H Creatinine 1.0 Est GFR ( Amer) > 60 Est GFR (Non-Af Amer) 57 POC Glucose (mg/dL) Random Glucose 95 Calcium 9.3 Total Bilirubin 0.4 AST 16 ALT 21 Alkaline Phosphatase 110 Troponin I < 0.0120 NT-Pro-B Natriuret Pep 2550 H Total Protein 6.7 Albumin 3.6 Globulin 3.1 Albumin/Globulin Ratio 1.2 Arterial Blood Potassium 4.3 Urine Color Urine Clarity Urine pH Ur Specific [place] Urine Protein Urine Glucose (UA) Urine Ketones Urine Blood Urine Nitrate Urine Bilirubin Urine Urobilinogen Ur Leukocyte Esterase Urine WBC (Auto) Urine RBC (Auto) Digoxin Urine Opiates Screen Urine Methadone Screen Ur Barbiturates Screen Ur Phencyclidine Scrn Ur Amphetamines Screen U Benzodiazepines Scrn U Oth Cocaine Metabols U Cannabinoids Screen Alcohol, Quantitative < 10 Influenza Typ A,B (EIA) 05/13/17 05/13/17 05/13/17 19:01 19:01 19:02 WBC RBC Hgb Hct MCV MCH MCHC RDW Plt Count MPV Neut % (Auto) Lymph % (Auto) [place] % (Auto) Eos % (Auto) Baso % (Auto) Neut # (Auto) Lymph # (Auto) [place] # (Auto) Eos # (Auto) Baso # (Auto) PT 10.7 INR 1.0 APTT 30 D-Dimer, Quantitative 240 Puncture Site pCO2 pO2 HCO3 ABG pH ABG Total CO2 ABG O2 Saturation ABG Base Excess [place] Test ABG Potassium A-a O2 Difference Respiratory Index Sodium Chloride Glucose Lactate Liter Flow FiO2 Potassium Carbon Dioxide Anion Gap BUN Creatinine Est GFR ( Amer) Est GFR (Non-Af Amer) POC Glucose (mg/dL) Random Glucose Calcium Total Bilirubin AST ALT Alkaline Phosphatase Troponin I NT-Pro-B Natriuret Pep Total Protein Albumin Globulin Albumin/Globulin Ratio Arterial Blood Potassium Urine Color Urine Clarity Urine pH Ur Specific [place] Urine Protein Urine Glucose (UA) Urine Ketones Urine Blood Urine Nitrate Urine Bilirubin Urine Urobilinogen Ur Leukocyte Esterase Urine WBC (Auto) Urine RBC (Auto) Digoxin < 0.4 L Urine Opiates Screen Urine Methadone Screen Ur Barbiturates Screen Ur Phencyclidine Scrn Ur Amphetamines Screen U Benzodiazepines Scrn U Oth Cocaine Metabols U Cannabinoids Screen Alcohol, Quantitative Influenza Typ A,B (EIA) Negative for flu a/b 05/13/17 05/13/17 05/14/17 19:48 19:48 05:43 WBC RBC Hgb Hct MCV MCH MCHC RDW Plt Count MPV Neut % (Auto) Lymph % (Auto) [place] % (Auto) Eos % (Auto) Baso % (Auto) Neut # (Auto) Lymph # (Auto) [place] # (Auto) Eos # (Auto) Baso # (Auto) PT INR APTT D-Dimer, Quantitative Puncture Site pCO2 pO2 HCO3 ABG pH ABG Total CO2 ABG O2 Saturation ABG Base Excess [place] Test ABG Potassium A-a O2 Difference Respiratory Index Sodium Chloride Glucose Lactate Liter Flow FiO2 Potassium Carbon Dioxide Anion Gap BUN Creatinine Est GFR ( Amer) Est GFR (Non-Af Amer) POC Glucose (mg/dL) 184 H Random Glucose Calcium Total Bilirubin AST ALT Alkaline Phosphatase Troponin I NT-Pro-B Natriuret Pep Total Protein Albumin Globulin Albumin/Globulin Ratio Arterial Blood Potassium Urine Color Colorless Urine Clarity Clear Urine pH 6.0 Ur Specific [place] 1.009 Urine Protein Negative Urine Glucose (UA) Normal Urine Ketones Negative Urine Blood Negative Urine Nitrate Negative Urine Bilirubin Negative Urine Urobilinogen Normal Ur Leukocyte Esterase Neg Urine WBC (Auto) 1 Urine RBC (Auto) < 1 Digoxin Urine Opiates Screen Negative Urine Methadone Screen Negative Ur Barbiturates Screen Negative Ur Phencyclidine Scrn Negative Ur Amphetamines Screen Negative U Benzodiazepines Scrn Negative U Oth Cocaine Metabols Negative U Cannabinoids Screen Negative Alcohol, Quantitative Influenza Typ A,B (EIA) 05/14/17 05/14/17 08:16 11:24 WBC RBC Hgb Hct MCV MCH MCHC RDW Plt Count MPV Neut % (Auto) Lymph % (Auto) [place] % (Auto) Eos % (Auto) Baso % (Auto) Neut # (Auto) Lymph # (Auto) [place] # (Auto) Eos # (Auto) Baso # (Auto) PT INR APTT D-Dimer, Quantitative Puncture Site pCO2 pO2 HCO3 ABG pH ABG Total CO2 ABG O2 Saturation ABG Base Excess [place] Test ABG Potassium A-a O2 Difference Respiratory Index Sodium Chloride Glucose Lactate Liter Flow FiO2 Potassium Carbon Dioxide Anion Gap BUN Creatinine Est GFR ( Amer) Est GFR (Non-Af Amer) POC Glucose (mg/dL) 155 H 149 H Random Glucose Calcium Total Bilirubin AST ALT Alkaline Phosphatase Troponin I NT-Pro-B Natriuret Pep Total Protein Albumin Globulin Albumin/Globulin Ratio Arterial Blood Potassium Urine Color Urine Clarity Urine pH Ur Specific [place] Urine Protein Urine Glucose (UA) Urine Ketones Urine Blood Urine Nitrate Urine Bilirubin Urine Urobilinogen Ur Leukocyte Esterase Urine WBC (Auto) Urine RBC (Auto) Digoxin Urine Opiates Screen Urine Methadone Screen Ur Barbiturates Screen Ur Phencyclidine Scrn Ur Amphetamines Screen U Benzodiazepines Scrn U Oth Cocaine Metabols U Cannabinoids Screen Alcohol, Quantitative Influenza Typ A,B (EIA) - EKG Data EKG Interpreted by: Myself EKG shows normal: Sinus rhythm Rate: Normal Assessment & Plan - Assessment and Plan (Free Text) Assessment: 1. CAD with normal LVEF and acute on chronic diastolic dysfunction > Hx of CABG 2012: stable, no active CP or ADHF > EKG is normal without ischemic changes > Cont [id number] 10 2. HTN > on zestril 10- metoprolol XL 50 QD > BP and HR are controlled 3. LE edema + volume overload in legs > ECHO 03/2017: Normal LVEF, Grade 2 Diastolic dysfunction, LAE-mod, mild-mod pulm HTN There was also mitral annular calcification with mild mitral stenosis > Both diastolic dysfunction and mild MS may contribute to PULM HTN and LE edema > suggest continued diuresis: > suggest lasix IV 40 BID and metolazone 5 daily for a few days to augment diuresis. consider w/u and Rx for superficial cellulitis DVT prophylaxis
--- NOTE | 2017-05-14 14:10 | CP.PCM.CON ---
History of Present Illness - History of Present Illness History of Present Illness: Filiberto is a 61 year old female with extensive past medical history including CABG (2012), CHF , COPD, Stasis Dermatitis, asthma, CAD, DM, HTN, and HLD came to the ED complaining of right leg swelling and anterior leg pain. She stated this started 2 days ago. She states she has a history of this in the past. She also complains of shortness of breath that started around the same time as the leg swelling. The shortness of breath occurs when she is physically active such as walking. She denies any chest pain, nausea, vomiting, or palpitations. She admits to a cough productive of yellow white sputum. Cough increases upon laying down. Her primary medical doctor is Dr. Valentine and she follows a caridologist Dr. Waters. She denies any recent smoking but admits to smoking socially over 30 years ago. Denies sick contacts. Allergies- none Surgeries- CABG 2012, tonisllectomy Assessment/Plan Shortness of breath secondary to CHF Exacerbation/copd -BNP 2550 -Chest Xray benign -echo 04/12 . Normal LVEF , moderate Left atrial enlargement, mild-mod pulmonary HTN -lasix -on aspirin, plavix, metoprolol -duoneb as needed -flu negative -troponin negative -follow cardio recs Cellulitis VS Stasis Dermatitis -D dimer Negative -on antibiotics azithromycin and ceftriaxone Past Patient History - Infectious Disease Hx of Infectious Diseases: None - Tetanus Immunizations Tetanus Immunization: Unknown - Past Medical History & Family History Past Medical History?: Yes - Past Social History Smoking Status: Never Smoked - CARDIAC Hx Congestive Heart Failure: Yes Hx Hypercholesterolemia: Yes Hx Hypertension: Yes Hx Peripheral Edema: Yes - PULMONARY Hx Asthma: Yes Hx Chronic Obstructive Pulmonary Disease (COPD): Yes - NEUROLOGICAL Hx Neurological Disorder: No - HEENT Other/Comment: Uses eyeglasses - RENAL Hx Chronic Kidney Disease: No - ENDOCRINE/METABOLIC Hx Hypothyroidism: Yes - HEMATOLOGICAL/ONCOLOGICAL Hx Anemia: No Hx Human Immunodeficiency Virus (HIV): No - INTEGUMENTARY Hx Dermatological Problems: Yes Other/Comment: Hx non-healing wound LLE - MUSCULOSKELETAL/RHEUMATOLOGICAL Hx Arthritis: Yes - GASTROINTESTINAL Hx Gastrointestinal Disorders: No - GENITOURINARY/GYNECOLOGICAL Hx Genitourinary Disorders: No - PSYCHIATRIC Hx Substance Use: No - SURGICAL HISTORY Hx Coronary Artery Bypass Graft: Yes Hx Tonsillectomy: Yes - ANESTHESIA Hx Anesthesia: Yes Hx Anesthesia Reactions: No Hx Malignant Hyperthermia: No Meds Allergies/Adverse Reactions: Allergies Allergy/AdvReac Type Severity Reaction Status Date / Time No Known Allergies Allergy Verified 05/13/17 18:16 - Medications Medications: Current Medications Acetaminophen (Tylenol 325mg Tab) 650 mg PO Q4 PRN PRN Reason: Pain, moderate (4-7) Albuterol/Ipratropium (Duoneb 3 Mg/0.5 Mg (3 Ml) Ud) 3 ml INH RQ6 [facility] Last Admin: 05/14/17 10:00 Dose: 3 ml Allopurinol (Zyloprim) 100 mg PO DAILY [facility] Last Admin: 05/14/17 12:05 Dose: 100 mg Aspirin (Ecotrin) 81 mg PO DAILY [facility] Last Admin: 05/14/17 12:05 Dose: 81 mg Clopidogrel Bisulfate (Plavix) 75 mg PO DAILY [facility] Last Admin: 05/14/17 12:05 Dose: 75 mg Enoxaparin Sodium (Lovenox) 40 mg SC DAILY [facility] Last Admin: 05/14/17 12:05 Dose: 40 mg Furosemide (Lasix) 40 mg IVP DAILY [facility] Last Admin: 05/14/17 12:05 Dose: 40 mg Gabapentin (Neurontin) 100 mg PO DAILY [facility] Last Admin: 05/14/17 12:05 Dose: 100 mg Guaifenesin (Robitussin) 200 mg PO Q4H PRN PRN Reason: Cough and congestion Ceftriaxone Sodium 1 gm/ (Sodium Chloride) 100 mls @ 100 mls/hr IVPB DAILY [facility] Last Admin: 05/14/17 12:05 Dose: 100 mls/hr Azithromycin 500 mg/ Sodium (Chloride) 250 mls @ 250 mls/hr IVPB DAILY [facility] Insulin Detemir (Levemir) 12 unit SC HS [facility] Last Admin: 05/13/17 22:54 Dose: 12 unit Insulin Human Regular (Novolin R) 0 unit SC ACHS [facility] PRN Reason: Protocol Last Admin: 05/14/17 11:51 Dose: Not Given Isosorbide Mononitrate (Imdur) 60 mg PO DAILY [facility] Last Admin: 05/14/17 12:05 Dose: 60 mg Levothyroxine Sodium (Synthroid) 50 mcg PO DAILY@0630 [facility] Last Admin: 05/14/17 06:30 Dose: 50 mcg Lisinopril (Zestril) 10 mg PO DAILY [facility] Last Admin: 05/14/17 12:05 Dose: 10 mg Metformin HCl (Glucophage) 500 mg PO BID [facility] Last Admin: 05/14/17 12:05 Dose: 500 mg Metoprolol Succinate (Toprol Xl) 50 mg PO DAILY [facility] Last Admin: 05/14/17 12:05 Dose: 50 mg Mupirocin (Bactroban Ointment) 1 gm TOP BID [facility] Ondansetron HCl (Zofran Odt) 4 mg PO Q8 PRN PRN Reason: Nausea/Vomiting Oseltamivir Phosphate (Tamiflu Cap) 75 mg PO BID [facility] Last Admin: 05/14/17 12:05 Dose: 75 mg Rosuvastatin Calcium (Crestor) 5 mg PO [facility] Results - Vital Signs Recent Vital Signs: Last Vital Signs Temp 97.6 F 05/14/17 11:25 Pulse 76 05/14/17 11:25 Resp 18 05/14/17 11:25 BP 143/55 L 05/14/17 12:05 Pulse Ox 100 05/14/17 11:25 - Labs Result Diagrams: 05/13/17 19:01 05/13/17 19:01 Labs: Laboratory Results - last 24 hr 05/13/17 05/13/17 05/13/17 19:00 19:01 19:01 WBC 5.5 RBC 3.41 L Hgb 9.4 L Hct 29.1 L MCV 85.4 MCH 27.6 MCHC 32.3 L RDW 16.4 H Plt Count 241 MPV 8.8 Neut % (Auto) 70.9 Lymph % (Auto) 20.0 [place] % (Auto) 3.5 Eos % (Auto) 3.2 Baso % (Auto) 2.4 H Neut # (Auto) 3.9 Lymph # (Auto) 1.1 [place] # (Auto) 0.2 Eos # (Auto) 0.2 Baso # (Auto) 0.1 PT INR APTT D-Dimer, Quantitative Puncture Site Rra pCO2 37 pO2 125 H HCO3 24.8 ABG pH 7.42 ABG Total CO2 25.1 ABG O2 Saturation 98.7 H ABG Base Excess -0.2 Negrito Test P ABG Potassium 4.3 A-a O2 Difference 28.0 Respiratory Index 0.2 Sodium 141.0 140 Chloride 113.0 H 104 Glucose 93 Lactate 0.8 Liter Flow 2.0 FiO2 28.0 Potassium 4.5 Carbon Dioxide 28 Anion Gap 12 BUN 23 H Creatinine 1.0 Est GFR ( Amer) > 60 Est GFR (Non-Af Amer) 57 POC Glucose (mg/dL) Random Glucose 95 Calcium 9.3 Total Bilirubin 0.4 AST 16 ALT 21 Alkaline Phosphatase 110 Troponin I < 0.0120 NT-Pro-B Natriuret Pep 2550 H Total Protein 6.7 Albumin 3.6 Globulin 3.1 Albumin/Globulin Ratio 1.2 Arterial Blood Potassium 4.3 Urine Color Urine Clarity Urine pH Ur Specific [place] Urine Protein Urine Glucose (UA) Urine Ketones Urine Blood Urine Nitrate Urine Bilirubin Urine Urobilinogen Ur Leukocyte Esterase Urine WBC (Auto) Urine RBC (Auto) Digoxin Urine Opiates Screen Urine Methadone Screen Ur Barbiturates Screen Ur Phencyclidine Scrn Ur Amphetamines Screen U Benzodiazepines Scrn U Oth Cocaine Metabols U Cannabinoids Screen Alcohol, Quantitative < 10 Influenza Typ A,B (EIA) 05/13/17 05/13/17 05/13/17 19:01 19:01 19:02 WBC RBC Hgb Hct MCV MCH MCHC RDW Plt Count MPV Neut % (Auto) Lymph % (Auto) [place] % (Auto) Eos % (Auto) Baso % (Auto) Neut # (Auto) Lymph # (Auto) [place] # (Auto) Eos # (Auto) Baso # (Auto) PT 10.7 INR 1.0 APTT 30 D-Dimer, Quantitative 240 Puncture Site pCO2 pO2 HCO3 ABG pH ABG Total CO2 ABG O2 Saturation ABG Base Excess Negrito Test ABG Potassium A-a O2 Difference Respiratory Index Sodium Chloride Glucose Lactate Liter Flow FiO2 Potassium Carbon Dioxide Anion Gap BUN Creatinine Est GFR ( Amer) Est GFR (Non-Af Amer) POC Glucose (mg/dL) Random Glucose Calcium Total Bilirubin AST ALT Alkaline Phosphatase Troponin I NT-Pro-B Natriuret Pep Total Protein Albumin Globulin Albumin/Globulin Ratio Arterial Blood Potassium Urine Color Urine Clarity Urine pH Ur Specific [place] Urine Protein Urine Glucose (UA) Urine Ketones Urine Blood Urine Nitrate Urine Bilirubin Urine Urobilinogen Ur Leukocyte Esterase Urine WBC (Auto) Urine RBC (Auto) Digoxin < 0.4 L Urine Opiates Screen Urine Methadone Screen Ur Barbiturates Screen Ur Phencyclidine Scrn Ur Amphetamines Screen U Benzodiazepines Scrn U Oth Cocaine Metabols U Cannabinoids Screen Alcohol, Quantitative Influenza Typ A,B (EIA) Negative for flu a/b 05/13/17 05/13/17 05/14/17 19:48 19:48 05:43 WBC RBC Hgb Hct MCV MCH MCHC RDW Plt Count MPV Neut % (Auto) Lymph % (Auto) [place] % (Auto) Eos % (Auto) Baso % (Auto) Neut # (Auto) Lymph # (Auto) [place] # (Auto) Eos # (Auto) Baso # (Auto) PT INR APTT D-Dimer, Quantitative Puncture Site pCO2 pO2 HCO3 ABG pH ABG Total CO2 ABG O2 Saturation ABG Base Excess Negrito Test ABG Potassium A-a O2 Difference Respiratory Index Sodium Chloride Glucose Lactate Liter Flow FiO2 Potassium Carbon Dioxide Anion Gap BUN Creatinine Est GFR ( Amer) Est GFR (Non-Af Amer) POC Glucose (mg/dL) 184 H Random Glucose Calcium Total Bilirubin AST ALT Alkaline Phosphatase Troponin I NT-Pro-B Natriuret Pep Total Protein Albumin Globulin Albumin/Globulin Ratio Arterial Blood Potassium Urine Color Colorless Urine Clarity Clear Urine pH 6.0 Ur Specific [place] 1.009 Urine Protein Negative Urine Glucose (UA) Normal Urine Ketones Negative Urine Blood Negative Urine Nitrate Negative Urine Bilirubin Negative Urine Urobilinogen Normal Ur Leukocyte Esterase Neg Urine WBC (Auto) 1 Urine RBC (Auto) < 1 Digoxin Urine Opiates Screen Negative Urine Methadone Screen Negative Ur Barbiturates Screen Negative Ur Phencyclidine Scrn Negative Ur Amphetamines Screen Negative U Benzodiazepines Scrn Negative U Oth Cocaine Metabols Negative U Cannabinoids Screen Negative Alcohol, Quantitative Influenza Typ A,B (EIA) 05/14/17 05/14/17 08:16 11:24 WBC RBC Hgb Hct MCV MCH MCHC RDW Plt Count MPV Neut % (Auto) Lymph % (Auto) [place] % (Auto) Eos % (Auto) Baso % (Auto) Neut # (Auto) Lymph # (Auto) [place] # (Auto) Eos # (Auto) Baso # (Auto) PT INR APTT D-Dimer, Quantitative Puncture Site pCO2 pO2 HCO3 ABG pH ABG Total CO2 ABG O2 Saturation ABG Base Excess Negrito Test ABG Potassium A-a O2 Difference Respiratory Index Sodium Chloride Glucose Lactate Liter Flow FiO2 Potassium Carbon Dioxide Anion Gap BUN Creatinine Est GFR ( Amer) Est GFR (Non-Af Amer) POC Glucose (mg/dL) 155 H 149 H Random Glucose Calcium Total Bilirubin AST ALT Alkaline Phosphatase Troponin I NT-Pro-B Natriuret Pep Total Protein Albumin Globulin Albumin/Globulin Ratio Arterial Blood Potassium Urine Color Urine Clarity Urine pH Ur Specific [place] Urine Protein Urine Glucose (UA) Urine Ketones Urine Blood Urine Nitrate Urine Bilirubin Urine Urobilinogen Ur Leukocyte Esterase Urine WBC (Auto) Urine RBC (Auto) Digoxin Urine Opiates Screen Urine Methadone Screen Ur Barbiturates Screen Ur Phencyclidine Scrn Ur Amphetamines Screen U Benzodiazepines Scrn U Oth Cocaine Metabols U Cannabinoids Screen Alcohol, Quantitative Influenza Typ A,B (EIA)
[2017-05-14] MEDS: Azithromycin 500 MG in Sodium Chloride 0.9% 250 ML IVPB SCH (15:17)
--- NOTE | 2017-05-14 17:47 | CP.PCM.PN ---
Subjective - Date & Time of Evaluation Date of Evaluation: 05/14/17 Time of Evaluation: 14:20 - Subjective Subjective: clinically same Objective - Vital Signs/Intake and Output Vital Signs (last 24 hours): Temp Pulse Resp BP Pulse Ox 97.9 F 81 18 100/40 L 100 05/14/17 16:44 05/14/17 16:44 05/14/17 16:44 05/14/17 16:44 05/14/17 16:44 - Medications Medications: Current Medications Acetaminophen (Tylenol 325mg Tab) 650 mg PO Q4 PRN PRN Reason: Pain, moderate (4-7) Albuterol/Ipratropium (Duoneb 3 Mg/0.5 Mg (3 Ml) Ud) 3 ml INH RQ6 [facility] Last Admin: 05/14/17 14:15 Dose: 3 ml Allopurinol (Zyloprim) 100 mg PO DAILY [facility] Last Admin: 05/14/17 12:05 Dose: 100 mg Aspirin (Ecotrin) 81 mg PO DAILY [facility] Last Admin: 05/14/17 12:05 Dose: 81 mg Clopidogrel Bisulfate (Plavix) 75 mg PO DAILY [facility] Last Admin: 05/14/17 12:05 Dose: 75 mg Enoxaparin Sodium (Lovenox) 40 mg SC DAILY [facility] Last Admin: 05/14/17 12:05 Dose: 40 mg Furosemide (Lasix) 40 mg IVP DAILY [facility] Last Admin: 05/14/17 12:05 Dose: 40 mg Gabapentin (Neurontin) 100 mg PO DAILY [facility] Last Admin: 05/14/17 12:05 Dose: 100 mg Guaifenesin (Robitussin) 200 mg PO Q4H PRN PRN Reason: Cough and congestion Ceftriaxone Sodium 1 gm/ (Sodium Chloride) 100 mls @ 100 mls/hr IVPB DAILY [facility] Last Admin: 05/14/17 12:05 Dose: 100 mls/hr Azithromycin 500 mg/ Sodium (Chloride) 250 mls @ 250 mls/hr IVPB DAILY [facility] Last Admin: 05/14/17 15:17 Dose: 250 mls/hr Insulin Detemir (Levemir) 12 unit SC HS [facility] Last Admin: 05/13/17 22:54 Dose: 12 unit Insulin Human Regular (Novolin R) 0 unit SC ACHS [facility] PRN Reason: Protocol Last Admin: 05/14/17 11:51 Dose: Not Given Isosorbide Mononitrate (Imdur) 60 mg PO DAILY [facility] Last Admin: 05/14/17 12:05 Dose: 60 mg Levothyroxine Sodium (Synthroid) 50 mcg PO DAILY@0630 [facility] Last Admin: 05/14/17 06:30 Dose: 50 mcg Lisinopril (Zestril) 10 mg PO DAILY [facility] Last Admin: 05/14/17 12:05 Dose: 10 mg Metformin HCl (Glucophage) 500 mg PO BID [facility] Last Admin: 05/14/17 12:05 Dose: 500 mg Metoprolol Succinate (Toprol Xl) 50 mg PO DAILY [facility] Last Admin: 05/14/17 12:05 Dose: 50 mg Mupirocin (Bactroban Ointment) 1 gm TOP BID [facility] Ondansetron HCl (Zofran Odt) 4 mg PO Q8 PRN PRN Reason: Nausea/Vomiting Oseltamivir Phosphate (Tamiflu Cap) 75 mg PO BID [facility] Last Admin: 05/14/17 12:05 Dose: 75 mg Rosuvastatin Calcium (Crestor) 5 mg PO [facility] - Labs Labs: 05/13/17 19:01 05/13/17 19:01 PT 10.7 SECONDS (9.7-12.2) 05/13/17 19:01 INR 1.0 05/13/17 19:01 APTT 30 SECONDS (21-34) 05/13/17 19:01 - Constitutional Appears: Well - Head Exam Head Exam: ATRAUMATIC, NORMAL INSPECTION, NORMOCEPHALIC - Eye Exam Eye Exam: EOMI, Normal appearance, PERRL Pupil Exam: NORMAL ACCOMODATION, PERRL - ENT Exam ENT Exam: Mucous Membranes Moist, Normal Exam - Neck Exam Neck Exam: Full ROM, Normal Inspection. absent: Lymphadenopathy - Respiratory Exam Respiratory Exam: Decreased Breath Sounds - Cardiovascular Exam Cardiovascular Exam: REGULAR RHYTHM, +S1, +S2 - GI/Abdominal Exam GI & Abdominal Exam: Soft, Diminished Bowel Sounds - Rectal Exam Rectal Exam: Deferred
[2017-05-14] MEDS ORDERED: (Novolin R) Insulin Human Regular 100 units/ml vial ONE (18:37)
[2017-05-14] MEDS: Insulin Detemir 100 units/ml Vial (Levemir) SC SCH (21:36)
--- NOTE | 2017-05-14 22:44 | CARD ---
APPROVED REPORT EKG Measurement Heart [id number] <Conclusion> Normal sinus rhythm Moderate voltage criteria for LVH, may be normal variant Abnormal ECG
[2017-05-15] MEDS: Albuterol-Ipratrop 3 mg / 0.5 (3 ml) UD INH SCH ×4 (01:42→20:28)
[2017-05-15] MEDS: Levothyroxine 50 MCG TAB PO SCH (06:23)
[2017-05-15] MEDS: (Novolin R) Insulin Human Regular 100 units/ml vial SC SCH ×4 (08:02→21:17)
[2017-05-15] MEDS: Metoprolol Succinate 50 mg XL Tab PO SCH (11:29)
[2017-05-15] MEDS: Enoxaparin 40 mg Syringe SC SCH (11:29)
[2017-05-15] MEDS: Azithromycin 500 MG in Sodium Chloride 0.9% 250 ML IVPB SCH (13:27)
--- NOTE | 2017-05-15 14:19 | CP.PCM.PN ---
Subjective - Date & Time of Evaluation Date of Evaluation: 05/15/17 Time of Evaluation: 14:17 - Subjective Subjective: Swelling and redness in legs improved No CP or SOB NO N/V/D/Fevers or chills Objective - Vital Signs/Intake and Output Vital Signs (last 24 hours): Temp Pulse Resp BP Pulse Ox 98.0 F 76 20 107/51 L 100 05/15/17 08:20 05/15/17 08:49 05/15/17 08:20 05/15/17 11:32 05/15/17 08:20 Intake and Output: 05/15/17 05/15/17 06:59 18:59 Intake Total 360 Balance 360 - Medications Medications: Current Medications Acetaminophen (Tylenol 325mg Tab) 650 mg PO Q4 PRN PRN Reason: Pain, moderate (4-7) Last Admin: 05/15/17 04:48 Dose: 650 mg Albuterol/Ipratropium (Duoneb 3 Mg/0.5 Mg (3 Ml) Ud) 3 ml INH RQ6 [facility] Last Admin: 05/15/17 13:06 Dose: 3 ml Allopurinol (Zyloprim) 100 mg PO DAILY [facility] Last Admin: 05/14/17 12:05 Dose: 100 mg Aspirin (Ecotrin) 81 mg PO DAILY [facility] Last Admin: 05/15/17 11:29 Dose: 81 mg Clopidogrel Bisulfate (Plavix) 75 mg PO DAILY [facility] Last Admin: 05/15/17 11:28 Dose: 75 mg Enoxaparin Sodium (Lovenox) 40 mg SC DAILY [facility] Last Admin: 05/15/17 11:29 Dose: 40 mg Furosemide (Lasix) 40 mg IVP DAILY [facility] Last Admin: 05/15/17 11:32 Dose: Not Given Gabapentin (Neurontin) 100 mg PO DAILY [facility] Last Admin: 05/15/17 11:27 Dose: 100 mg Guaifenesin (Robitussin) 200 mg PO Q4H PRN PRN Reason: Cough and congestion Ceftriaxone Sodium 1 gm/ (Sodium Chloride) 100 mls @ 100 mls/hr IVPB DAILY [facility] Last Admin: 05/15/17 11:36 Dose: 100 mls/hr Azithromycin 500 mg/ Sodium (Chloride) 250 mls @ 250 mls/hr IVPB DAILY [facility] Last Admin: 05/15/17 13:27 Dose: 250 mls/hr Insulin Detemir (Levemir) 12 unit SC [facility] Last Admin: 05/14/17 21:36 Dose: Not Given Insulin Human Regular (Novolin R) 0 unit SC [facility] PRN Reason: Protocol Last Admin: 05/15/17 12:51 Dose: Not Given Isosorbide Mononitrate (Imdur) 60 mg PO DAILY [facility] Last Admin: 05/15/17 11:29 Dose: 60 mg Levothyroxine Sodium (Synthroid) 50 mcg PO DAILY@0630 [facility] Last Admin: 05/15/17 06:23 Dose: 50 mcg Lisinopril (Zestril) 10 mg PO DAILY [facility] Last Admin: 05/15/17 11:29 Dose: 10 mg Metformin HCl (Glucophage) 500 mg PO BID [facility] Last Admin: 05/15/17 11:28 Dose: 500 mg Metoprolol Succinate (Toprol Xl) 50 mg PO DAILY [facility] Last Admin: 05/15/17 11:29 Dose: 50 mg Mupirocin (Bactroban Ointment) 1 gm TOP BID [facility] Last Admin: 05/14/17 18:26 Dose: Not Given Ondansetron HCl (Zofran Odt) 4 mg PO Q8 PRN PRN Reason: Nausea/Vomiting Oseltamivir Phosphate (Tamiflu Cap) 75 mg PO BID [facility] Last Admin: 05/15/17 11:27 Dose: 75 mg Rosuvastatin Calcium (Crestor) 5 mg PO [facility] Last Admin: 05/14/17 22:16 Dose: 5 mg - Labs Labs: 05/13/17 19:01 05/13/17 19:01 PT 10.7 SECONDS (9.7-12.2) 05/13/17 19:01 INR 1.0 05/13/17 19:01 APTT 30 SECONDS (21-34) 05/13/17 19:01 - Head Exam Head Exam: ATRAUMATIC, NORMAL INSPECTION, NORMOCEPHALIC - Eye Exam Eye Exam: EOMI, Normal appearance - Respiratory Exam Respiratory Exam: Clear to Ausculation Bilateral, NORMAL BREATHING PATTERN. absent: Rales, Rhonchi, Wheezes - Cardiovascular Exam Cardiovascular Exam: REGULAR RHYTHM, +S1, +S2, Murmur (soft systolic LSB). absent: Gallop, +S4 - Skin Skin Exam: Warm (mild edema, mild erythema in both lower legs) Assessment and Plan - Assessment and Plan (Free Text) Assessment: 1. CAD with normal LVEF and acute on chronic diastolic dysfunction > Hx of CABG 2012: stable, no active CP or ADHF > EKG is normal without ischemic changes > Cont [id number] 10- isosorbide 2. HTN > on zestril 10- metoprolol XL 50 QD > BP and HR are controlled 3. LE edema + volume overload in legs now improving > ECHO 03/2017: Normal LVEF, Grade 2 Diastolic dysfunction, LAE-mod, mild-mod pulm HTN There was also mitral annular calcification with mild mitral stenosis -----> Both diastolic dysfunction and mild MS may contribute to PULM HTN and LE edema 1. suggest continued diuresis: 2. lasix IV 40 QD transition to PO 40mg daily. 3. consider w/u and Rx for superficial cellulitis 4. DVT prophylaxis 5. Suggest LE compression stockings
--- NOTE | 2017-05-15 15:32 | CP.PCM.PN ---
Subjective - Date & Time of Evaluation Date of Evaluation: 05/15/17 Time of Evaluation: 10:30 - Subjective Subjective: Patient was seen and examined at the bedside. She states her breathing is improved and denies any shortness of breath. She states her cough is also improved. She states her left leg feels better and that the swelling went down. She denies any chest pain, wheezing, nausea, palpitations, or vomiting. Assessment/Plan Cellulitis Vs. Statsis Dermatitis -continue antibiotics Shortness of breath -likely secondary to CHF exacerbation -improved -continue duonebs as needed -lasix Objective - Vital Signs/Intake and Output Vital Signs (last 24 hours): Temp Pulse Resp BP Pulse Ox 98.0 F 76 20 107/51 L 100 05/15/17 08:20 05/15/17 08:49 05/15/17 08:20 05/15/17 11:32 05/15/17 08:20 Intake and Output: 05/15/17 05/15/17 06:59 18:59 Intake Total 360 Balance 360 - Medications Medications: Current Medications Acetaminophen (Tylenol 325mg Tab) 650 mg PO Q4 PRN PRN Reason: Pain, moderate (4-7) Last Admin: 05/15/17 04:48 Dose: 650 mg Albuterol/Ipratropium (Duoneb 3 Mg/0.5 Mg (3 Ml) Ud) 3 ml INH RQ6 [facility] Last Admin: 05/15/17 13:06 Dose: 3 ml Allopurinol (Zyloprim) 100 mg PO DAILY [facility] Last Admin: 05/14/17 12:05 Dose: 100 mg Aspirin (Ecotrin) 81 mg PO DAILY [facility] Last Admin: 05/15/17 11:29 Dose: 81 mg Clopidogrel Bisulfate (Plavix) 75 mg PO DAILY [facility] Last Admin: 05/15/17 11:28 Dose: 75 mg Enoxaparin Sodium (Lovenox) 40 mg SC DAILY [facility] Last Admin: 05/15/17 11:29 Dose: 40 mg Furosemide (Lasix) 40 mg IVP DAILY [facility] Last Admin: 05/15/17 11:32 Dose: Not Given Gabapentin (Neurontin) 100 mg PO DAILY [facility] Last Admin: 05/15/17 11:27 Dose: 100 mg Guaifenesin (Robitussin) 200 mg PO Q4H PRN PRN Reason: Cough and congestion Ceftriaxone Sodium 1 gm/ (Sodium Chloride) 100 mls @ 100 mls/hr IVPB DAILY [facility] Last Admin: 05/15/17 11:36 Dose: 100 mls/hr Azithromycin 500 mg/ Sodium (Chloride) 250 mls @ 250 mls/hr IVPB DAILY [facility] Last Admin: 05/15/17 13:27 Dose: 250 mls/hr Insulin Detemir (Levemir) 12 unit SC [facility] Last Admin: 05/14/17 21:36 Dose: Not Given Insulin Human Regular (Novolin R) 0 unit SC [facility] PRN Reason: Protocol Last Admin: 05/15/17 12:51 Dose: Not Given Isosorbide Mononitrate (Imdur) 60 mg PO DAILY [facility] Last Admin: 05/15/17 11:29 Dose: 60 mg Levothyroxine Sodium (Synthroid) 50 mcg PO DAILY@0630 [facility] Last Admin: 05/15/17 06:23 Dose: 50 mcg Lisinopril (Zestril) 10 mg PO DAILY [facility] Last Admin: 05/15/17 11:29 Dose: 10 mg Metformin HCl (Glucophage) 500 mg PO BID [facility] Last Admin: 05/15/17 11:28 Dose: 500 mg Metoprolol Succinate (Toprol Xl) 50 mg PO DAILY [facility] Last Admin: 05/15/17 11:29 Dose: 50 mg Mupirocin (Bactroban Ointment) 1 gm TOP BID [facility] Last Admin: 05/15/17 13:00 Dose: Not Given Ondansetron HCl (Zofran Odt) 4 mg PO Q8 PRN PRN Reason: Nausea/Vomiting Oseltamivir Phosphate (Tamiflu Cap) 75 mg PO BID [facility] Last Admin: 05/15/17 11:27 Dose: 75 mg Rosuvastatin Calcium (Crestor) 5 mg PO HS [facility] Last Admin: 05/14/17 22:16 Dose: 5 mg - Labs Labs: 05/13/17 19:01 05/13/17 19:01 PT 10.7 SECONDS (9.7-12.2) 05/13/17 19:01 INR 1.0 05/13/17 19:01 APTT 30 SECONDS (21-34) 05/13/17 19:01
--- NOTE | 2017-05-15 16:52 | CP.PCM.PN ---
Subjective - Date & Time of Evaluation Date of Evaluation: 05/15/17 Time of Evaluation: 14:40 - Subjective Subjective: clinically same Objective - Vital Signs/Intake and Output Vital Signs (last 24 hours): Temp Pulse Resp BP Pulse Ox 98.2 F 76 18 107/65 97 05/15/17 15:00 05/15/17 16:20 05/15/17 15:00 05/15/17 15:00 05/15/17 15:00 Intake and Output: 05/15/17 05/15/17 06:59 18:59 Intake Total 360 Balance 360 - Medications Medications: Current Medications Acetaminophen (Tylenol 325mg Tab) 650 mg PO Q4 PRN PRN Reason: Pain, moderate (4-7) Last Admin: 05/15/17 04:48 Dose: 650 mg Albuterol/Ipratropium (Duoneb 3 Mg/0.5 Mg (3 Ml) Ud) 3 ml INH RQ6 [facility] Last Admin: 05/15/17 13:06 Dose: 3 ml Allopurinol (Zyloprim) 100 mg PO DAILY [facility] Last Admin: 05/15/17 11:29 Dose: 100 mg Aspirin (Ecotrin) 81 mg PO DAILY [facility] Last Admin: 05/15/17 11:29 Dose: 81 mg Clopidogrel Bisulfate (Plavix) 75 mg PO DAILY [facility] Last Admin: 05/15/17 11:28 Dose: 75 mg Enoxaparin Sodium (Lovenox) 40 mg SC DAILY [facility] Last Admin: 05/15/17 11:29 Dose: 40 mg Furosemide (Lasix) 40 mg IVP DAILY [facility] Last Admin: 05/15/17 11:32 Dose: Not Given Gabapentin (Neurontin) 100 mg PO DAILY [facility] Last Admin: 05/15/17 11:27 Dose: 100 mg Guaifenesin (Robitussin) 200 mg PO Q4H PRN PRN Reason: Cough and congestion Ceftriaxone Sodium 1 gm/ (Sodium Chloride) 100 mls @ 100 mls/hr IVPB DAILY [facility] Last Admin: 05/15/17 11:36 Dose: 100 mls/hr Azithromycin 500 mg/ Sodium (Chloride) 250 mls @ 250 mls/hr IVPB DAILY [facility] Last Admin: 05/15/17 13:27 Dose: 250 mls/hr Insulin Detemir (Levemir) 12 unit SC [facility] Last Admin: 05/14/17 21:36 Dose: Not Given Insulin Human Regular (Novolin R) 0 unit SC ACHS [facility] PRN Reason: Protocol Last Admin: 05/15/17 12:51 Dose: Not Given Isosorbide Mononitrate (Imdur) 60 mg PO DAILY [facility] Last Admin: 05/15/17 11:29 Dose: 60 mg Levothyroxine Sodium (Synthroid) 50 mcg PO DAILY@0630 [facility] Last Admin: 05/15/17 06:23 Dose: 50 mcg Lisinopril (Zestril) 10 mg PO DAILY [facility] Last Admin: 05/15/17 11:29 Dose: 10 mg Metformin HCl (Glucophage) 500 mg PO BID [facility] Last Admin: 05/15/17 11:28 Dose: 500 mg Metoprolol Succinate (Toprol Xl) 50 mg PO DAILY [facility] Last Admin: 05/15/17 11:29 Dose: 50 mg Mupirocin (Bactroban Ointment) 1 gm TOP BID [facility] Last Admin: 05/15/17 13:00 Dose: Not Given Ondansetron HCl (Zofran Odt) 4 mg PO Q8 PRN PRN Reason: Nausea/Vomiting Oseltamivir Phosphate (Tamiflu Cap) 75 mg PO BID [facility] Last Admin: 05/15/17 11:27 Dose: 75 mg Rosuvastatin Calcium (Crestor) 5 mg PO HS [facility] Last Admin: 05/14/17 22:16 Dose: 5 mg - Labs Labs: 05/13/17 19:01 05/13/17 19:01 PT 10.7 SECONDS (9.7-12.2) 05/13/17 19:01 INR 1.0 05/13/17 19:01 APTT 30 SECONDS (21-34) 05/13/17 19:01 - Constitutional Appears: Well - Head Exam Head Exam: ATRAUMATIC, NORMAL INSPECTION, NORMOCEPHALIC - Eye Exam Eye Exam: EOMI, Normal appearance, PERRL Pupil Exam: NORMAL ACCOMODATION, PERRL - ENT Exam ENT Exam: Mucous Membranes Moist, Normal Exam - Neck Exam Neck Exam: Full ROM, Normal Inspection. absent: Lymphadenopathy - Respiratory Exam Respiratory Exam: Decreased Breath Sounds - Cardiovascular Exam Cardiovascular Exam: REGULAR RHYTHM, +S1, +S2 - GI/Abdominal Exam GI & Abdominal Exam: Soft, Diminished Bowel Sounds - Rectal Exam Rectal Exam: Deferred
[2017-05-15] MEDS: Insulin Detemir 100 units/ml Vial (Levemir) SC SCH (21:17)
[2017-05-16] MEDS: Albuterol-Ipratrop 3 mg / 0.5 (3 ml) UD INH SCH ×4 (02:17→19:51)
[2017-05-16] MEDS: Levothyroxine 50 MCG TAB PO SCH (05:48)
--- NOTE | 2017-05-16 07:33 | CP.PCM.PN ---
Subjective - Date & Time of Evaluation Date of Evaluation: 05/16/17 Time of Evaluation: 07:32 - Subjective Subjective: Remains Asx Improved LE edema/erythema No CP, fevers, chills Exam: HEENT: WNL NECK: supple, no JVD CVS: RRR, soft systolic murmur LLSB no radiation LUNGS: CTABL Both LE's show wrinkling and improved edema 1. CAD with normal LVEF and acute on chronic diastolic dysfunction > Hx of CABG 2012: stable, no active CP or ADHF > EKG is normal without ischemic changes > Cont [id number] 10- isosorbide 2. HTN > on zestril 10- metoprolol XL 50 QD > BP and HR are controlled 3. LE edema + volume overload in legs now improving > ECHO 03/2017: Normal LVEF, Grade 2 Diastolic dysfunction, LAE-mod, mild-mod pulm HTN There was also mitral annular calcification with mild mitral stenosis -----> Both diastolic dysfunction and mild MS may contribute to PULM HTN and LE edema 1. suggest continued diuresis: monitor lytes 2. lasix IV 40 QD transition to PO 40mg daily. 3. consider w/u and Rx for superficial cellulitis 4. DVT prophylaxis 5. Suggest LE compression stockings 6. PT to help with ambulation and strength training Objective - Vital Signs/Intake and Output Vital Signs (last 24 hours): Temp Pulse Resp BP Pulse Ox 98.4 F 70 20 90/59 L 97 05/15/17 23:10 05/15/17 23:10 05/15/17 23:10 05/15/17 23:10 05/15/17 23:10 Intake and Output: 05/16/17 05/16/17 06:59 18:59 Intake Total 240 Balance 240 - Medications Medications: Current Medications Acetaminophen (Tylenol 325mg Tab) 650 mg PO Q4 PRN PRN Reason: Pain, moderate (4-7) Last Admin: 05/15/17 17:38 Dose: 650 mg Albuterol/Ipratropium (Duoneb 3 Mg/0.5 Mg (3 Ml) Ud) 3 ml INH RQ6 [facility] Last Admin: 05/16/17 07:21 Dose: 3 ml Allopurinol (Zyloprim) 100 mg PO DAILY [facility] Last Admin: 05/15/17 11:29 Dose: 100 mg Aspirin (Ecotrin) 81 mg PO DAILY [facility] Last Admin: 05/15/17 11:29 Dose: 81 mg Clopidogrel Bisulfate (Plavix) 75 mg PO DAILY [facility] Last Admin: 05/15/17 11:28 Dose: 75 mg Enoxaparin Sodium (Lovenox) 40 mg SC DAILY [facility] Last Admin: 05/15/17 11:29 Dose: 40 mg Furosemide (Lasix) 40 mg IVP DAILY [facility] Last Admin: 05/15/17 11:32 Dose: Not Given Gabapentin (Neurontin) 100 mg PO DAILY [facility] Last Admin: 05/15/17 11:27 Dose: 100 mg Guaifenesin (Robitussin) 200 mg PO Q4H PRN PRN Reason: Cough and congestion Ceftriaxone Sodium 1 gm/ (Sodium Chloride) 100 mls @ 100 mls/hr IVPB DAILY [facility] Last Admin: 05/15/17 11:36 Dose: 100 mls/hr Azithromycin 500 mg/ Sodium (Chloride) 250 mls @ 250 mls/hr IVPB DAILY [facility] Last Admin: 05/15/17 13:27 Dose: 250 mls/hr Insulin Detemir (Levemir) 12 unit SC HS [facility] Last Admin: 05/15/17 21:17 Dose: Not Given Insulin Human Regular (Novolin R) 0 unit SC [facility] PRN Reason: Protocol Last Admin: 05/15/17 21:17 Dose: Not Given Isosorbide Mononitrate (Imdur) 60 mg PO DAILY [facility] Last Admin: 05/15/17 11:29 Dose: 60 mg Levothyroxine Sodium (Synthroid) 50 mcg PO DAILY@0630 [facility] Last Admin: 05/16/17 05:48 Dose: 50 mcg Lisinopril (Zestril) 10 mg PO DAILY [facility] Last Admin: 05/15/17 11:29 Dose: 10 mg Metformin HCl (Glucophage) 500 mg PO BID [facility] Last Admin: 05/15/17 17:36 Dose: 500 mg Metoprolol Succinate (Toprol Xl) 50 mg PO DAILY [facility] Last Admin: 05/15/17 11:29 Dose: 50 mg Mupirocin (Bactroban Ointment) 1 gm TOP BID [facility] Last Admin: 05/15/17 18:04 Dose: 1 % Ondansetron HCl (Zofran Odt) 4 mg PO Q8 PRN PRN Reason: Nausea/Vomiting Oseltamivir Phosphate (Tamiflu Cap) 75 mg PO BID [facility] Last Admin: 05/15/17 17:36 Dose: 75 mg Rosuvastatin Calcium (Crestor) 5 mg PO HS [facility] Last Admin: 05/15/17 21:33 Dose: 5 mg - Labs Labs: 05/13/17 19:01 05/13/17 19:01 PT 10.7 SECONDS (9.7-12.2) 05/13/17 19:01 INR 1.0 05/13/17 19:01 APTT 30 SECONDS (21-34) 05/13/17 19:01 Assessment and Plan - Assessment and Plan (Free Text) Assessment: as above
[2017-05-16] MEDS: (Novolin R) Insulin Human Regular 100 units/ml vial SC SCH ×4 (08:02→21:56)
[2017-05-16] MEDS: Azithromycin 500 MG in Sodium Chloride 0.9% 250 ML IVPB SCH (09:12)
[2017-05-16] MEDS: Enoxaparin 40 mg Syringe SC SCH (09:12)
[2017-05-16] MEDS: Metoprolol Succinate 50 mg XL Tab PO SCH (09:16)
--- NOTE | 2017-05-16 14:07 | CP.PCM.PN ---
Subjective - Date & Time of Evaluation Date of Evaluation: 05/16/17 Time of Evaluation: 13:00 - Subjective Subjective: clinically same Objective - Vital Signs/Intake and Output Vital Signs (last 24 hours): Temp Pulse Resp BP Pulse Ox 97.8 F 73 18 100/56 L 96 05/16/17 08:42 05/16/17 08:42 05/16/17 08:42 05/16/17 09:15 05/16/17 08:42 Intake and Output: 05/16/17 05/16/17 06:59 18:59 Intake Total 240 Balance 240 - Medications Medications: Current Medications Acetaminophen (Tylenol 325mg Tab) 650 mg PO Q4 PRN PRN Reason: Pain, moderate (4-7) Last Admin: 05/15/17 17:38 Dose: 650 mg Albuterol/Ipratropium (Duoneb 3 Mg/0.5 Mg (3 Ml) Ud) 3 ml INH RQ6 [facility] Last Admin: 05/16/17 13:33 Dose: 3 ml Allopurinol (Zyloprim) 100 mg PO DAILY [facility] Last Admin: 05/16/17 09:16 Dose: 100 mg Aspirin (Ecotrin) 81 mg PO DAILY [facility] Last Admin: 05/16/17 09:16 Dose: 81 mg Clopidogrel Bisulfate (Plavix) 75 mg PO DAILY [facility] Last Admin: 05/16/17 09:16 Dose: 75 mg Enoxaparin Sodium (Lovenox) 40 mg SC DAILY [facility] Last Admin: 05/16/17 09:12 Dose: 40 mg Furosemide (Lasix) 40 mg IVP DAILY [facility] Last Admin: 05/16/17 09:15 Dose: Not Given Gabapentin (Neurontin) 100 mg PO DAILY [facility] Last Admin: 05/16/17 09:15 Dose: 100 mg Guaifenesin (Robitussin) 200 mg PO Q4H PRN PRN Reason: Cough and congestion Ceftriaxone Sodium 1 gm/ (Sodium Chloride) 100 mls @ 100 mls/hr IVPB DAILY [facility] Last Admin: 05/15/17 11:36 Dose: 100 mls/hr Azithromycin 500 mg/ Sodium (Chloride) 250 mls @ 250 mls/hr IVPB DAILY [facility] Last Admin: 05/16/17 09:12 Dose: 250 mls/hr Insulin Detemir (Levemir) 12 unit SC [facility] Last Admin: 05/15/17 21:17 Dose: Not Given Insulin Human Regular (Novolin R) 0 unit SC ACHS [facility] PRN Reason: Protocol Last Admin: 05/16/17 12:28 Dose: Not Given Isosorbide Mononitrate (Imdur) 60 mg PO DAILY [facility] Last Admin: 05/16/17 09:16 Dose: 60 mg Levothyroxine Sodium (Synthroid) 50 mcg PO DAILY@0630 [facility] Last Admin: 05/16/17 05:48 Dose: 50 mcg Lisinopril (Zestril) 10 mg PO DAILY [facility] Last Admin: 05/16/17 09:16 Dose: 10 mg Metformin HCl (Glucophage) 500 mg PO BID [facility] Last Admin: 05/16/17 09:15 Dose: 500 mg Metoprolol Succinate (Toprol Xl) 50 mg PO DAILY [facility] Last Admin: 05/16/17 09:16 Dose: 50 mg Mupirocin (Bactroban Ointment) 1 gm TOP BID [facility] Last Admin: 05/16/17 09:21 Dose: 1 % Ondansetron HCl (Zofran Odt) 4 mg PO Q8 PRN PRN Reason: Nausea/Vomiting Oseltamivir Phosphate (Tamiflu Cap) 75 mg PO BID [facility] Last Admin: 05/16/17 09:16 Dose: 75 mg Rosuvastatin Calcium (Crestor) 5 mg PO HS [facility] Last Admin: 05/15/17 21:33 Dose: 5 mg - Labs Labs: 05/13/17 19:01 05/13/17 19:01 PT 10.7 SECONDS (9.7-12.2) 05/13/17 19:01 INR 1.0 05/13/17 19:01 APTT 30 SECONDS (21-34) 05/13/17 19:01 - Constitutional Appears: Well - Head Exam Head Exam: ATRAUMATIC, NORMAL INSPECTION, NORMOCEPHALIC - Eye Exam Eye Exam: EOMI, Normal appearance, PERRL Pupil Exam: NORMAL ACCOMODATION, PERRL - ENT Exam ENT Exam: Mucous Membranes Moist, Normal Exam - Neck Exam Neck Exam: Full ROM, Normal Inspection. absent: Lymphadenopathy - Respiratory Exam Respiratory Exam: Decreased Breath Sounds - Cardiovascular Exam Cardiovascular Exam: REGULAR RHYTHM, +S1, +S2 - GI/Abdominal Exam GI & Abdominal Exam: Soft, Diminished Bowel Sounds - Rectal Exam Rectal Exam: Deferred
[2017-05-16 16:48] VITALS: RESP 20
--- NOTE | 2017-05-16 17:44 | CP.PCM.PN ---
Subjective - Date & Time of Evaluation Date of Evaluation: 05/16/17 Time of Evaluation: 11:00 - Subjective Subjective: Patient was seen and examined at the bedside. She states she feels much better today. Her leg is less swollen and less painful compared to yesterday. She denies any shortness of breath and states her cough has improved. She has been tolerating her medications and diet. She denies any chest pain, palpitations, shortness of breath, or wheezing. Assessment/Plan Shortness of breath? -improved -continue duoneb as needed -lasix -flu negative Cellulitis Vs Stasis Dermatitis -on antibiotics -improving -dvt prophylaxis Objective - Vital Signs/Intake and Output Vital Signs (last 24 hours): Temp Pulse Resp BP Pulse Ox 97.7 F 69 20 103/54 L 96 05/16/17 15:15 05/16/17 16:35 05/16/17 15:15 05/16/17 15:15 05/16/17 15:15 Intake and Output: 05/16/17 05/16/17 06:59 18:59 Intake Total 240 Balance 240 - Medications Medications: Current Medications Acetaminophen (Tylenol 325mg Tab) 650 mg PO Q4 PRN PRN Reason: Pain, moderate (4-7) Last Admin: 05/16/17 15:21 Dose: 650 mg Albuterol/Ipratropium (Duoneb 3 Mg/0.5 Mg (3 Ml) Ud) 3 ml INH RQ6 [facility] Last Admin: 05/16/17 13:33 Dose: 3 ml Allopurinol (Zyloprim) 100 mg PO DAILY [facility] Last Admin: 05/16/17 09:16 Dose: 100 mg Aspirin (Ecotrin) 81 mg PO DAILY [facility] Last Admin: 05/16/17 09:16 Dose: 81 mg Clopidogrel Bisulfate (Plavix) 75 mg PO DAILY [facility] Last Admin: 05/16/17 09:16 Dose: 75 mg Enoxaparin Sodium (Lovenox) 40 mg SC DAILY [facility] Last Admin: 05/16/17 09:12 Dose: 40 mg Furosemide (Lasix) 40 mg IVP DAILY [facility] Last Admin: 05/16/17 09:15 Dose: Not Given Gabapentin (Neurontin) 100 mg PO DAILY [facility] Last Admin: 05/16/17 09:15 Dose: 100 mg Guaifenesin (Robitussin) 200 mg PO Q4H PRN PRN Reason: Cough and congestion Ceftriaxone Sodium 1 gm/ (Sodium Chloride) 100 mls @ 100 mls/hr IVPB DAILY [facility] Last Admin: 05/16/17 15:58 Dose: Not Given Azithromycin 500 mg/ Sodium (Chloride) 250 mls @ 250 mls/hr IVPB DAILY [facility] Last Admin: 05/16/17 09:12 Dose: 250 mls/hr Insulin Detemir (Levemir) 12 unit SC [facility] Last Admin: 05/15/17 21:17 Dose: Not Given Insulin Human Regular (Novolin R) 0 unit SC [facility] PRN Reason: Protocol Last Admin: 05/16/17 17:25 Dose: Not Given Isosorbide Mononitrate (Imdur) 60 mg PO DAILY [facility] Last Admin: 05/16/17 09:16 Dose: 60 mg Levothyroxine Sodium (Synthroid) 50 mcg PO DAILY@0630 [facility] Last Admin: 05/16/17 05:48 Dose: 50 mcg Lisinopril (Zestril) 10 mg PO DAILY [facility] Last Admin: 05/16/17 09:16 Dose: 10 mg Metformin HCl (Glucophage) 500 mg PO BID [facility] Last Admin: 05/16/17 09:15 Dose: 500 mg Metoprolol Succinate (Toprol Xl) 50 mg PO DAILY [facility] Last Admin: 05/16/17 09:16 Dose: 50 mg Mupirocin (Bactroban Ointment) 1 gm TOP BID [facility] Last Admin: 05/16/17 09:21 Dose: 1 % Ondansetron HCl (Zofran Odt) 4 mg PO Q8 PRN PRN Reason: Nausea/Vomiting Oseltamivir Phosphate (Tamiflu Cap) 75 mg PO BID [facility] Last Admin: 05/16/17 09:16 Dose: 75 mg Rosuvastatin Calcium (Crestor) 5 mg PO HS [facility] Last Admin: 05/15/17 21:33 Dose: 5 mg - Labs Labs: 05/13/17 19:01 05/13/17 19:01 PT 10.7 SECONDS (9.7-12.2) 05/13/17 19:01 INR 1.0 05/13/17 19:01 APTT 30 SECONDS (21-34) 05/13/17 19:01
[2017-05-16] MEDS: Insulin Detemir 100 units/ml Vial (Levemir) SC SCH (21:57)
[2017-05-17] MEDS: Albuterol-Ipratrop 3 mg / 0.5 (3 ml) UD INH SCH ×3 (01:09→13:17)
[2017-05-17] MEDS: Levothyroxine 50 MCG TAB PO SCH (05:32)
[2017-05-17] MEDS: (Novolin R) Insulin Human Regular 100 units/ml vial SC SCH ×2 (08:06→13:33)
[2017-05-17] MEDS: Enoxaparin 40 mg Syringe SC SCH (09:21)
[2017-05-17] MEDS: Metoprolol Succinate 50 mg XL Tab PO SCH (09:21)
[2017-05-17] MEDS: Azithromycin 500 MG in Sodium Chloride 0.9% 250 ML IVPB SCH (11:21)
[2017-05-17 16:54] VITALS: BP 129/68; PULSE 67; TEMP 98; O2SAT 98
--- NOTE | 2017-05-17 17:15 | CP.PCM.PN ---
Subjective - Date & Time of Evaluation Date of Evaluation: 05/17/17 Time of Evaluation: 11:40 - Subjective Subjective: [employer]ESSOR NOTES Patient seen today denies any sob, chest pain, dizziness, N/V/D Objective - Vital Signs/Intake and Output Vital Signs (last 24 hours): Temp Pulse Resp BP Pulse Ox 98.0 F 67 20 129/68 98 05/17/17 15:00 05/17/17 15:00 05/17/17 15:00 05/17/17 15:00 05/17/17 15:00 Intake and Output: 05/17/17 05/17/17 06:59 18:59 Intake Total 360 Balance 360 - Medications Medications: Current Medications Acetaminophen (Tylenol 325mg Tab) 650 mg PO Q4 PRN PRN Reason: Pain, moderate (4-7) Last Admin: 05/17/17 05:32 Dose: 650 mg Albuterol/Ipratropium (Duoneb 3 Mg/0.5 Mg (3 Ml) Ud) 3 ml INH RQ6 [facility] Last Admin: 05/17/17 13:17 Dose: 3 ml Allopurinol (Zyloprim) 100 mg PO DAILY [facility] Last Admin: 05/17/17 09:20 Dose: 100 mg Aspirin (Ecotrin) 81 mg PO DAILY [facility] Last Admin: 05/17/17 09:20 Dose: 81 mg Clopidogrel Bisulfate (Plavix) 75 mg PO DAILY [facility] Last Admin: 05/17/17 09:20 Dose: 75 mg Enoxaparin Sodium (Lovenox) 40 mg SC DAILY [facility] Last Admin: 05/17/17 09:21 Dose: 40 mg Furosemide (Lasix) 40 mg IVP DAILY [facility] Last Admin: 05/17/17 09:19 Dose: 40 mg Gabapentin (Neurontin) 100 mg PO DAILY [facility] Last Admin: 05/17/17 09:20 Dose: 100 mg Guaifenesin (Robitussin) 200 mg PO Q4H PRN PRN Reason: Cough and congestion Ceftriaxone Sodium 1 gm/ (Sodium Chloride) 100 mls @ 100 mls/hr IVPB DAILY [facility] Last Admin: 05/17/17 09:18 Dose: 100 mls/hr Azithromycin 500 mg/ Sodium (Chloride) 250 mls @ 250 mls/hr IVPB DAILY [facility] Last Admin: 05/17/17 11:21 Dose: 250 mls/hr Insulin Detemir (Levemir) 12 unit SC HS [facility] Last Admin: 05/16/17 21:57 Dose: Not Given Insulin Human Regular (Novolin R) 0 unit SC [facility] PRN Reason: Protocol Last Admin: 05/17/17 13:33 Dose: Not Given Isosorbide Mononitrate (Imdur) 60 mg PO DAILY [facility] Last Admin: 05/17/17 09:20 Dose: 60 mg Levothyroxine Sodium (Synthroid) 50 mcg PO DAILY@0630 [facility] Last Admin: 05/17/17 05:32 Dose: 50 mcg Lisinopril (Zestril) 10 mg PO DAILY [facility] Last Admin: 05/17/17 09:20 Dose: 10 mg Metformin HCl (Glucophage) 500 mg PO BID [facility] Last Admin: 05/17/17 09:20 Dose: 500 mg Metoprolol Succinate (Toprol Xl) 50 mg PO DAILY [facility] Last Admin: 05/17/17 09:21 Dose: 50 mg Mupirocin (Bactroban Ointment) 1 gm TOP BID [facility] Last Admin: 05/17/17 11:21 Dose: 1 % Ondansetron HCl (Zofran Odt) 4 mg PO Q8 PRN PRN Reason: Nausea/Vomiting Oseltamivir Phosphate (Tamiflu Cap) 75 mg PO BID [facility] Last Admin: 05/17/17 09:20 Dose: 75 mg Rosuvastatin Calcium (Crestor) 5 mg PO [facility] Last Admin: 05/16/17 21:37 Dose: 5 mg - Labs Labs: 05/13/17 19:01 05/13/17 19:01 PT 10.7 SECONDS (9.7-12.2) 05/13/17 19:01 INR 1.0 05/13/17 19:01 APTT 30 SECONDS (21-34) 05/13/17 19:01 Assessment and Plan - Assessment and Plan (Free Text) Assessment: A/P 61 yr old female admitted with exc. copd/ chf seen by Dr. Crystal today, cleared for discharge from pul. standpoint d/w Dr. Benitez , stable for discharge form cardiology stand point seen by Dr. Twin recinos , as per Dr. Twin recinos , patient can be discharged home today
--- NOTE | 2017-05-17 17:20 | PCM.HF ---
Heart Failure Core Measure - Heart Failure Ejection Fraction: 40 % or Greater JESUS Inhibitor Prescribed: Yes Beta-Brown Prescribed: Metoprolol Succinate Angiotensin II Receptor Brown Prescribed: No Contraindication/Reason for not providing: on jesus AnticoagulationTherapy for Atrial Fibrillation/Atrialflutter: No Contraindication/Reason for not providing: no hx of a fib Aldosterone Antagonist Prescribed: No Contraindication/Reason for not providing: ef>45 Hydralazine Nitrate Prescribed: No Contraindication/Reason for not providing: ef>45 Implantable Cardioverter Defibrillator Therapy: No Contraindication/Reason for not providing: ef>45 Cardiac Resynchronization Therapy Prescribed: No Contraindication/Reason for not providing: ef>45/ NSR - Follow up Will be discharged to: Home Follow Up Date (must be within 7 days from discharge): 05/22/17 Follow Up Time: 09:00
--- NOTE | 2017-05-17 17:22 | CP.PCM.PN ---
Subjective - Date & Time of Evaluation Date of Evaluation: 05/17/17 Time of Evaluation: 09:00 - Subjective Subjective: pt clinically same Objective - Vital Signs/Intake and Output Vital Signs (last 24 hours): Temp Pulse Resp BP Pulse Ox 98.0 F 67 20 129/68 98 05/17/17 15:00 05/17/17 15:00 05/17/17 15:00 05/17/17 15:00 05/17/17 15:00 Intake and Output: 05/17/17 05/17/17 06:59 18:59 Intake Total 360 Balance 360 - Medications Medications: Current Medications Acetaminophen (Tylenol 325mg Tab) 650 mg PO Q4 PRN PRN Reason: Pain, moderate (4-7) Last Admin: 05/17/17 05:32 Dose: 650 mg Albuterol/Ipratropium (Duoneb 3 Mg/0.5 Mg (3 Ml) Ud) 3 ml INH RQ6 [facility] Last Admin: 05/17/17 13:17 Dose: 3 ml Allopurinol (Zyloprim) 100 mg PO DAILY [facility] Last Admin: 05/17/17 09:20 Dose: 100 mg Aspirin (Ecotrin) 81 mg PO DAILY [facility] Last Admin: 05/17/17 09:20 Dose: 81 mg Clopidogrel Bisulfate (Plavix) 75 mg PO DAILY [facility] Last Admin: 05/17/17 09:20 Dose: 75 mg Enoxaparin Sodium (Lovenox) 40 mg SC DAILY [facility] Last Admin: 05/17/17 09:21 Dose: 40 mg Furosemide (Lasix) 40 mg IVP DAILY [facility] Last Admin: 05/17/17 09:19 Dose: 40 mg Gabapentin (Neurontin) 100 mg PO DAILY [facility] Last Admin: 05/17/17 09:20 Dose: 100 mg Guaifenesin (Robitussin) 200 mg PO Q4H PRN PRN Reason: Cough and congestion Ceftriaxone Sodium 1 gm/ (Sodium Chloride) 100 mls @ 100 mls/hr IVPB DAILY [facility] Last Admin: 05/17/17 09:18 Dose: 100 mls/hr Azithromycin 500 mg/ Sodium (Chloride) 250 mls @ 250 mls/hr IVPB DAILY [facility] Last Admin: 05/17/17 11:21 Dose: 250 mls/hr Insulin Detemir (Levemir) 12 unit SC [facility] Last Admin: 05/16/17 21:57 Dose: Not Given Insulin Human Regular (Novolin R) 0 unit SC ACHS [facility] PRN Reason: Protocol Last Admin: 05/17/17 13:33 Dose: Not Given Isosorbide Mononitrate (Imdur) 60 mg PO DAILY [facility] Last Admin: 05/17/17 09:20 Dose: 60 mg Levothyroxine Sodium (Synthroid) 50 mcg PO DAILY@0630 [facility] Last Admin: 05/17/17 05:32 Dose: 50 mcg Lisinopril (Zestril) 10 mg PO DAILY [facility] Last Admin: 05/17/17 09:20 Dose: 10 mg Metformin HCl (Glucophage) 500 mg PO BID [facility] Last Admin: 05/17/17 09:20 Dose: 500 mg Metoprolol Succinate (Toprol Xl) 50 mg PO DAILY [facility] Last Admin: 05/17/17 09:21 Dose: 50 mg Mupirocin (Bactroban Ointment) 1 gm TOP BID [facility] Last Admin: 05/17/17 11:21 Dose: 1 % Ondansetron HCl (Zofran Odt) 4 mg PO Q8 PRN PRN Reason: Nausea/Vomiting Oseltamivir Phosphate (Tamiflu Cap) 75 mg PO BID [facility] Last Admin: 05/17/17 09:20 Dose: 75 mg Rosuvastatin Calcium (Crestor) 5 mg PO HS [facility] Last Admin: 05/16/17 21:37 Dose: 5 mg - Labs Labs: 05/13/17 19:01 05/13/17 19:01 PT 10.7 SECONDS (9.7-12.2) 05/13/17 19:01 INR 1.0 05/13/17 19:01 APTT 30 SECONDS (21-34) 05/13/17 19:01
--- NOTE | 2017-05-17 19:34 | CP.PCM.PN ---
Subjective - Date & Time of Evaluation Date of Evaluation: 05/17/17 Time of Evaluation: 08:30 - Subjective Subjective: Patient was seen and examined at the bedside. She states she feels much better today. She states her leg looks and feels better compared to yesterday. She denies any shortness of breath and states her cough has improved. She has been tolerating her medications and diet. She denies any chest pain, palpitations, shortness of breath, or wheezing. She states she is ready to go home. Assessment/Plan Shortness of breath -improved -stable from pulm standpoint -flu negative Cellulitis Vs Stasis Dermatitis -on antibiotics -improving -dvt prophylaxis Objective - Vital Signs/Intake and Output Vital Signs (last 24 hours): Temp Pulse Resp BP Pulse Ox 98.0 F 67 20 129/68 98 05/17/17 15:00 05/17/17 15:00 05/17/17 15:00 05/17/17 15:00 05/17/17 15:00 - Labs Labs: 05/13/17 19:01 05/13/17 19:01 PT 10.7 SECONDS (9.7-12.2) 05/13/17 19:01 INR 1.0 05/13/17 19:01 APTT 30 SECONDS (21-34) 05/13/17 19:01
== END 2017-05-17 18:13 | disposition home or self-care (01) | DRG 127 ==
LOC: C.ER 18:08 → C.9E 20:21 → C.6T 05-14 18:20
PROVIDERS: ADMIT Internal Medicine Nephrology; ATTEND Internal Medicine Nephrology
DX: I11.0 Hypertensive heart disease with heart failure (principal); I50.33 Acute on chronic diastolic (congestive) heart failure; L03.115 Cellulitis of right lower limb; L03.116 Cellulitis of left lower limb; I27.20 Pulmonary hypertension, unspecified; I05.0 Rheumatic mitral stenosis; J44.9 Chronic obstructive pulmonary disease, unspecified; I25.10 Atherosclerotic heart disease of native coronary artery without angina pectoris; E11.9 Type 2 diabetes mellitus without complications; I87.2 Venous insufficiency (chronic) (peripheral); E03.9 Hypothyroidism, unspecified; E78.5 Hyperlipidemia, unspecified; E78.00 Pure hypercholesterolemia, unspecified; M19.90 Unspecified osteoarthritis, unspecified site; Z95.1 Presence of aortocoronary bypass graft; Z87.891 Personal history of nicotine dependence

== ENCOUNTER 2017-05-31 09:33 | Emergency (ER) | payer OTHER ==
[2017-05-31 09:33] VITALS: BMI 29.2
--- NOTE | 2017-05-31 10:09 | C.PDOC ---
History Of Present Illness <Sony Clancy - Last Filed: 05/31/17 11:07> <Charly Luz M - Last Filed: 05/31/17 12:24> This is a 61 y/o F who is homeless presenting via EMS. She was at a local fast food restaurant and employees called police to have her removed, EMS was requested as per the pt's complaints of leg pain. She has a hx of diabetes w/ neuropathy and CAD s/p bypass. She states that the pain has been occurring in her left leg x3 days. She denies any trauma/falls. No fevers or chills. She has chronic skin changes in the lower extremities b/l for which she saw a breaker table worker in November. She denies fevers, chills, chest pain, sob. nausea, vomiting, diarrhea, constipation. PMD: Lula Valentine (Sony Clancy) <Sony Clancy - Last Filed: 05/31/17 11:07> <Charly Luz M - Last Filed: 05/31/17 12:24> Time Seen by Provider: 05/31/17 09:54 Past Medical History - Medical History PMH: Arthritis, Asthma, CAD, CHF, COPD, Diabetes, HTN, Hypercholesterolemia, Hyperlipidemia, Hypothyroidism, Peripheral Edema Denies: Anemia, HIV, Chronic Kidney Disease Surgical History: CABG, Hernia Repair, Tonsillectomy Family History: States: Unknown Family Hx - Social History Hx Tobacco Use: No Hx Alcohol Use: No Hx Substance Use: No - Immunization History Hx Tetanus Toxoid Vaccination: No Hx Influenza Vaccination: No Hx Pneumococcal Vaccination: Yes <Sony Clancy - Last Filed: 05/31/17 11:07> Vital Signs: Last Vital Signs Temp 97.6 F 05/31/17 10:12 Pulse 67 05/31/17 10:12 Resp 20 05/31/17 10:12 BP 103/68 05/31/17 10:12 Pulse Ox 99 05/31/17 10:12 - [facility] Procedures CORONAR ARTERIOGR-2 CATH (11/19/13) DRAINAGE OF FACE SKIN, EXTERNAL APPROACH (02/13/17) INSERTION OF INFUSION DEV INTO SUP VENA CAVA, PERC APPROACH (10/02/16) LEFT HEART CARDIAC CATH (11/19/13) LT HEART ANGIOCARDIOGRAM (11/19/13) MEASURE CARDIAC SAMPL & PRESSURE, BILATERAL, PERC (03/11/16) PLAIN RADIOGRAPHY OF MULT COR ART USING L OSM CONTRAST (03/11/16) PLAIN RADIOGRAPHY OF R & L HEART USING L OSM CONTRAST (03/11/16) RELEASE PERITONEUM, OPEN APPROACH (12/27/16) SUPPLEMENT ABDOMINAL WALL WITH SYNTH SUB, OPEN APPROACH (12/27/16) Review Of Systems Constitutional: Negative for: Fever, Chills Cardiovascular: Negative for: Chest Pain, Palpitations Respiratory: Negative for: Cough, Shortness of Breath, Hemoptysis Gastrointestinal: Negative for: Nausea, Vomiting, Abdominal Pain, Diarrhea Genitourinary: Negative for: Dysuria Musculoskeletal: Positive for: Leg Pain (L>R) Skin: Positive for: Other (chronic skin changes) Neurological: Negative for: Weakness, Numbness <Sony Clancy - Last Filed: 05/31/17 11:07> Physical Exam - Physical Exam Appears: No Acute Distress Skin: Other (LLE feels cool and has chronic skin changes/breakdown) Head: Atraumatic, Normacephalic Teeth: Other (poor dentition) Throat: Normal Cardiovascular: Rhythm Regular Respiratory: Normal Breath Sounds, No Accessory Muscle Use, No Rales, No Rhonchi , No Stridor, No Wheezing Gastrointestinal/Abdominal: Soft, Other (surgical scar) Extremity: Tenderness (diffuse throughout LLE), Pedal Edema, Calf Tenderness ( LLE), Other (extensive skin changes in lower ext b/l, cool to touch, unable to appreciate DP pulses, edema) Pulses: Left Dorsalis Pedis: Absent, Right Dorsalis Pedis: Decreased Neurological/Psych: Oriented x3, Normal Speech, Other (LLE exquistely tender to palpation below the knee, no weakness, sensation intact) <Sony Clancy - Last Filed: 05/31/17 11:07> Medical Decision Making <Sony Clancy - Last Filed: 05/31/17 11:07> <Charly Luz - Last Filed: 05/31/17 12:24> Medical Decision Making: Dopplers ordered to evaluate for DVT. Fingerstick exhibited glucose 121. (Sony Clancy) leg pain - doppler negative for dvt. Will discharge patient home and advise to follow up with medical clinic in 2 days. (Charly Luz) Disposition - Disposition Disposition Time: 11:08 <Sony Clancy - Last Filed: 05/31/17 11:07> Counseled Patient/Family Regarding: Studies Performed, Diagnosis - Disposition Disposition Time: 12:23 <Charly Luz - Last Filed: 05/31/17 12:24> - Disposition Referrals: [facility] [Outside] Disposition: HOME/ ROUTINE Condition: STABLE Additional Instructions: follow up with your doctor in 2 days call to make an appointment take medications as prescribed return to ER if symptoms worsens or progress Forms: General Discharge Instructions, [facility] ([place]ux[place]ish) - Clinical Impression Clinical Impression: Leg pain, left, Venous stasis
[2017-05-31 10:21] VITALS: RESP 20
[2017-05-31 12:50] VITALS: BP 109/62; PULSE 88; TEMP 98.1; O2SAT 98
--- NOTE | 2017-05-31 13:44 | VASCLAB ---
PROCEDURE: Left Lower Extremity Venous Duplex Exam. HISTORY: Leg swelling PRIORS: None. TECHNIQUE: Left common femoral, femoral, popliteal and posterior tibial, peroneal and great saphenous veins were evaluated. Flow was assessed with color Doppler, compressibility, assessment of phasic flow and augmentation response. Report prepared by DAR Ramírez FINDINGS: LEFT: 1. Common Femoral Vein: 1.1. Compressibility - Fully compressible: Thrombus - None : Flow - Phasic: Augmentation -Normal: Reflux - None. 2. Femoral Vein: (proximal and mid views only) 2.1. Compressibility - Fully compressible: Thrombus - None: Flow - Phasic: Augmentation -Normal: Reflux - None. 3. Popliteal Vein: 3.1. Compressibility - Fully compressible: Thrombus - None: Flow - Phasic: Augmentation -Normal: Reflux - None. 4. Posterior Tibial Vein: (distal calf only) 4.1. Compressibility - Fully compressible: Thrombus - None: Flow - Phasic: Augmentation -Normal: Reflux - None. 5. Peroneal Vein: (distal calf only) 5.1. Compressibility - Fully compressible: Thrombus - None: Flow - Phasic: Augmentation -Normal: Reflux - None. 6. Great Saphenous Vein: 6.1. Compressibility - Fully compressible: Thrombus - None: Flow - Phasic: Augmentation - Normal: Reflux - None. OTHER FINDINGS: IMPRESSION: Normal compressibility of the left common femoral, proximal to mid femoral, popliteal, distal posterior tibial, distal peroneal and great saphenous veins. Technically difficult exam due to swelling.
== END 2017-05-31 12:50 | disposition home or self-care (01) ==
LOC: C.ER 09:33
DX: M79.605 Pain in left leg (principal); I87.8 Other specified disorders of veins; I25.10 Atherosclerotic heart disease of native coronary artery without angina pectoris; E03.9 Hypothyroidism, unspecified; I10 Essential (primary) hypertension; E11.9 Type 2 diabetes mellitus without complications; E78.00 Pure hypercholesterolemia, unspecified; I50.9 Heart failure, unspecified; J44.9 Chronic obstructive pulmonary disease, unspecified; Z59.0 Homelessness

== ENCOUNTER 2017-06-13 07:57 | Emergency (ER) | payer OTHER ==
[2017-06-13 07:57] VITALS: BMI 29.2
[2017-06-13 08:14] VITALS: TEMP 97.7; O2SAT 100
--- NOTE | 2017-06-13 09:13 | C.PDOC ---
History Of Present Illness 61 y/o female presents to the ER for evaluation of chronic leg pain. Patient states that she was seen in [place] [facility] on 05/31/17 for chronic leg pain and she had Dopplers which which were negative. She was advised to follow up with the medical clinic and she was discharged home. She notes that she has failed to follow up with the medical clinic. She decided to return to the ER today for continuing leg pain ( L>R). Patient denies having injuries and trauma. Time Seen by Provider: 06/13/17 08:13 Chief Complaint (Nursing): Lower Extremity Problem/Injury History Per: Patient History/Exam Limitations: no limitations Onset/Duration Of Symptoms: Days Current Symptoms Are (Timing): Still Present Severity: Moderate Past Medical History Reviewed: Historical Data, Nursing Documentation, Vital Signs Vital Signs: Last Vital Signs Temp 97.7 F 06/13/17 08:05 Pulse 74 06/13/17 09:16 Resp 16 06/13/17 09:16 BP 148/80 06/13/17 09:16 Pulse Ox 100 06/13/17 09:39 - Medical History PMH: Arthritis, Asthma, CAD, CHF, COPD, Diabetes, HTN, Hypercholesterolemia, Hyperlipidemia, Hypothyroidism, Peripheral Edema, Chronic Pain (leg pain) Denies: Anemia, HIV, Chronic Kidney Disease Surgical History: CABG, Hernia Repair, Tonsillectomy - [facility] Procedures CORONAR ARTERIOGR-2 CATH (11/19/13) DRAINAGE OF FACE SKIN, EXTERNAL APPROACH (02/13/17) INSERTION OF INFUSION DEV INTO SUP VENA CAVA, PERC APPROACH (10/02/16) LEFT HEART CARDIAC CATH (11/19/13) LT HEART ANGIOCARDIOGRAM (11/19/13) MEASURE CARDIAC SAMPL & PRESSURE, BILATERAL, PERC (03/11/16) PLAIN RADIOGRAPHY OF MULT COR ART USING L OSM CONTRAST (03/11/16) PLAIN RADIOGRAPHY OF R & L HEART USING L OSM CONTRAST (03/11/16) RELEASE PERITONEUM, OPEN APPROACH (12/27/16) SUPPLEMENT ABDOMINAL WALL WITH SYNTH SUB, OPEN APPROACH (12/27/16) Family History: States: No Known Family Hx - Social History Hx Tobacco Use: No Hx Alcohol Use: No Hx Substance Use: No - Immunization History Hx Tetanus Toxoid Vaccination: No Hx Influenza Vaccination: Yes Hx Pneumococcal Vaccination: No Review Of Systems Constitutional: Negative for: Fever, Chills Musculoskeletal: Positive for: Leg Pain Physical Exam - Physical Exam Appears: Non-toxic, No Acute Distress Skin: Warm, Dry Head: Atraumatic, Normacephalic Eye(s): bilateral: Normal Inspection Nose: Normal Oral Mucosa: Moist Neck: Supple Chest: Symmetrical Cardiovascular: Rhythm Regular Respiratory: Normal Breath Sounds, No Rales, No Rhonchi, No Wheezing Extremity: Normal ROM, No Pedal Edema, No Calf Tenderness, Other (mild erythema to bilateral legs ( L>R) with excoriations to left leg and area of macerated skin to left leg) Neurological/Psych: Oriented x3, Normal Speech, Normal Motor, Normal Sensation ED Course And Treatment O2 Sat by Pulse Oximetry: 100 (RA) Pulse Ox Interpretation: Normal Medical Decision Making Medical Decision Making: Assessment: Chronic Leg Pain Plan: --Labs --Accucheck --Tramadol PO Updates: Patient was seen by podiatry resident who recommended that the patient be prescribed Bactroban. Patient has been given prescription for Bactroban. She has been discharged home and told to follow up with Dr. Hernandez, sheriff deputy, in the podiatry clinic on 06/18/17. Disposition Discussed With : Marcello Harmon Doctor Will See Patient In The: Office Counseled Patient/Family Regarding: Diagnosis, Need For Followup, Rx Given - Disposition Referrals: Kristie Hernandez DPM [Staff Provider] - [facility] [Outside] Disposition: HOME/ ROUTINE Disposition Time: 09:11 Condition: STABLE Additional Instructions: follow up with podiatry clinic this Sunday, 06/18 take medications as prescribed return to ER if symptoms worsens or progress call to ensure appointment Prescriptions: Mupirocin 2% Cream [Bactroban Cream] 1 applic EXT BID PRN #60 tube PRN Reason: Rash traMADol [Ultram] 50 mg PO TID PRN #12 tab PRN Reason: Pain, Moderate (4-7) Instructions: Skin Abrasions, Wound Care (DC), Joint Pain Forms: [facility] ([place]arian), General Discharge Instructions - Clinical Impression Clinical Impression: Chronic pain of lower extremity, bilateral, Multiple excoriations - Scribe Statement The provider has reviewed the documentation as recorded by the Diana De Los Santos Provider Attestation: All medical record entries made by the Scribe were at my direction and personally dictated by me. I have reviewed the chart and agree that the record accurately reflects my personal performance of the history, physical exam, medical decision making, and the department course for this patient. I have also personally directed, reviewed, and agree with the discharge instructions and disposition.
[2017-06-13 09:17] VITALS: BP 148/80; PULSE 74; RESP 16
== END 2017-06-13 09:54 | disposition home or self-care (01) ==
LOC: C.ER 07:57
DX: G89.29 Other chronic pain (principal); M79.662 Pain in left lower leg; M79.661 Pain in right lower leg

== ENCOUNTER 2017-06-24 15:00 | Inpatient (IN) | payer OTHER ==
[2017-06-24 15:16] VITALS: BMI 30.2
[2017-06-24 16:23] LABS: BASO # 0.1 K/uL (0.0-0.2); BASO % 1.8 % (0.0-2.0); EOS # 0.1 K/uL (0.0-0.7); EOS % 2.4 % (0.0-4.0); HEMOGLOBIN 8.6 g/dL (11.0-16.0); LYMPH # 1.3 K/uL (1.0-4.3); LYMPH % 23.2 % (20.0-40.0); MEAN CELL VOLUME 83.9 fL (81.0-99.0); MEAN CORPUSCULAR HEMOGLOBIN 27.5 pg (27.0-31.0); MEAN CORPUSCULAR HGB CONC 32.8 g/dL (33.0-37.0); MEAN PLATELET VOLUME 9.1 fL (7.2-11.7); MONO # 0.3 K/uL (0.0-0.8); MONO % 4.6 % (0.0-10.0); NEUT # 3.8 K/uL (1.8-7.0); NRBC % 0.1 % (0.0-2.0); RBC 3.13 Mil/uL (3.80-5.20); RED CELL DISTRIBUTION WIDTH 16.5 % (11.5-14.5); WHITE BLOOD COUNT 5.6 K/uL (4.8-10.8)
[2017-06-24 16:37] LABS: ALB/GLOB RATIO 1.1 (1.0-2.1); ALBUMIN 3.4 g/dL (3.5-5.0); ALT/SGPT 13 U/L (9-52); AST/SGOT 13 U/L (14-36); BLOOD UREA NITROGEN 22 mg/dL (7-17); CALCIUM 8.6 mg/dl (8.6-10.4); GFR AFRICAN-AMERICAN > 60; GFR NON-AFRICAN AMERICAN > 60
[2017-06-24 16:44] LABS: B-TYPE NATRIURETIC PEPTIDE 2990 pg/mL (0-900)
--- NOTE | 2017-06-24 17:02 | C.PDOC ---
History Of Present Illness 61 year old female presents to the ED today complaining of bilateral lower extremity and swelling associated with itchiness for the past couple of weeks. The patient states she has seen her PCP for similar symptoms in the past and was prescribed lasix but did not use it as she "does not like peeing a lot". She denies any chest pain, nausea, vomiting, abdominal pain, numbness, weakness , or fever. Time Seen by Provider: 06/24/17 15:23 Chief Complaint (Nursing): Abnormal Skin Integrity History Per: Patient History/Exam Limitations: no limitations Past Medical History Vital Signs: Last Vital Signs Temp 98.1 F 06/24/17 15:16 Pulse 69 06/24/17 18:21 Resp 26 H 06/24/17 18:21 BP 161/51 H 06/24/17 18:21 Pulse Ox 99 06/24/17 18:28 - Medical History PMH: Arthritis, Asthma, CAD, CHF, COPD, Diabetes, HTN, Hypercholesterolemia, Hyperlipidemia, Hypothyroidism, Peripheral Edema, Chronic Pain (leg pain) Denies: Anemia, HIV, Chronic Kidney Disease Surgical History: CABG, Hernia Repair, Tonsillectomy - [facility] Procedures CORONAR ARTERIOGR-2 CATH (11/19/13) DRAINAGE OF FACE SKIN, EXTERNAL APPROACH (02/13/17) INSERTION OF INFUSION DEV INTO SUP VENA CAVA, PERC APPROACH (10/02/16) LEFT HEART CARDIAC CATH (11/19/13) LT HEART ANGIOCARDIOGRAM (11/19/13) MEASURE CARDIAC SAMPL & PRESSURE, BILATERAL, PERC (03/11/16) PLAIN RADIOGRAPHY OF MULT COR ART USING L OSM CONTRAST (03/11/16) PLAIN RADIOGRAPHY OF R & L HEART USING L OSM CONTRAST (03/11/16) RELEASE PERITONEUM, OPEN APPROACH (12/27/16) SUPPLEMENT ABDOMINAL WALL WITH SYNTH SUB, OPEN APPROACH (12/27/16) Family History: States: Unknown Family Hx - Social History Hx Tobacco Use: No Hx Alcohol Use: No Hx Substance Use: No - Immunization History Hx Tetanus Toxoid Vaccination: No Hx Influenza Vaccination: Yes Hx Pneumococcal Vaccination: No Review Of Systems Constitutional: Negative for: Fever Gastrointestinal: Negative for: Nausea, Vomiting, Diarrhea Musculoskeletal: Positive for: Other (bilateral lower extremity swelling and itching) Physical Exam - Physical Exam Appears: Non-toxic Skin: Normal Color, Warm, No Rash Head: Atraumatic, Normacephalic Eye(s): bilateral: Normal Inspection Oral Mucosa: Moist Throat: No Erythema, No Exudate Neck: Normal ROM, Supple Chest: Symmetrical, No Tenderness Cardiovascular: Rhythm Regular, No Friction Rub, No Murmur Respiratory: Normal Breath Sounds, No Other (crackles) Gastrointestinal/Abdominal: Soft, No Tenderness Back: Normal Inspection, No CVA Tenderness Extremity: Normal ROM, Pedal Edema (3+ edema bilaterally), No Deformity, Other ( + excoriations noted to lower extremities) Neurological/Psych: Oriented x3, Normal Speech, Normal Motor, Normal Sensation Gait: Steady ED Course And Treatment - Laboratory Results Result Diagrams: 06/24/17 16:20 06/24/17 16:20 ECG: Interpreted By Me, Viewed By Me ECG Rhythm: Sinus Rhythm Interpretation Of ECG: Normal ST/T waves, normal axis Rate From EC O2 Sat by Pulse Oximetry: 99 (RA) Pulse Ox Interpretation: Normal - Radiology CXR: Interpreted by Me CXR Interpretation: Yes: Other (venous congestion) Medical Decision Making Medical Decision Making: Plan: --Chest X-Ray --EKG CXR shows venous congestion. EKG is normal. Lasix IV given. The case was discussed with Dr. Valentine, who states that she is not her patient and states to admit the patient to hospitalist. Case was discussed with Dr. Rivero who states to admit the patient to Dr. Lambert. Disposition - Disposition Disposition: HOSPITALIZED Disposition Time: 17:30 Condition: STABLE - Clinical Impression Clinical Impression: CHF, acute on chronic - PA / [employer] WORK[employer] / Resident Statement MD/DO has reviewed & agrees with the documentation as recorded. - Scribe Statement The provider has reviewed the documentation as recorded by the Scribe Flori De La Rosaaged All medical record entries made by the Scribe were at my direction and personally dictated by me. I have reviewed the chart and agree that the record accurately reflects my personal performance of the history, physical exam, medical decision making, and the department course for this patient. I have also personally directed, reviewed, and agree with the discharge instructions and disposition.
--- NOTE | 2017-06-24 19:45 | CP.PCM.HP ---
<Estephania Dunne - Last Filed: 06/25/17 00:56> History of Present Illness - History of Present Illness History of Present Illness: CC: "leg swelling" HPI: 61 year old female with past medical history of CHF, MS (2012), Diabetes Type II, asthma, peripheral neuropathy presents to the ER for lower extremity edema. Patient states the edema started about 3-4 days ago and she thought it would just go away on its own. She states her legs have been also red for a few weeks. Patient states bilateral lower extremities have been constantly painful. She states the pain feels like a squeezing pain about 7/10. She has taken Tramadol for her pain which she received from a previous ER admission which alleviated some of her pain. Patient states she has chronic left foot tingling and numbness since 12/2016. She also states she had chest tightness yesterday for a few hours and then it subsided she states that has been going on for a few months and she believes it is due to anxiety. She states she has not taken her medications for 3 days. Patient states she does not like to take her Lasix as it makes her go to the bathroom often. Patient denies shortness of breath and states she sleeps with 2 pillows and has not been able to lay flat since her MS in 2012. She denies chest pain, nausea, vomiting, fever, recent travel, sick contacts. diarrhea, constipation or abdominal pain. PMD: Dr. Valentine Cardio: Dr. 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 Denies alcohol or illicit drug use Present on Admission - Present on Admission Any Indicators Present on Admission: No Review of Systems - Constitutional Constitutional: absent: Chills, Fever - EENT Eyes: absent: Blurred Vision - Cardiovascular Cardiovascular: Edema, Leg Edema, Pedal Edema. absent: Chest Pain, Dyspnea, Lightheadedness, Palpitations - Respiratory Respiratory: absent: Dyspnea - Gastrointestinal Gastrointestinal: absent: Constipation, Diarrhea, Nausea, Vomiting - Genitourinary Genitourinary: absent: Dysuria - Musculoskeletal Musculoskeletal: Joint Swelling, Numbness, Tingling - Neurological Neurological: Numbness, Tingling. absent: Headaches - Psychiatric Psychiatric: Anxiety Past Patient History - Infectious Disease Hx of Infectious Diseases: None - Tetanus Immunizations Tetanus Immunization: Unknown - Past Medical History & Family History Past Medical History?: Yes - Past Social History Smoking Status: Never Smoked - CARDIAC Hx Congestive Heart Failure: Yes Hx Hypercholesterolemia: Yes Hx Hypertension: Yes Hx Peripheral Edema: Yes - PULMONARY Hx Asthma: Yes Hx Chronic Obstructive Pulmonary Disease (COPD): Yes - NEUROLOGICAL Hx Neurological Disorder: No - HEENT Other/Comment: Uses eyeglasses - RENAL Hx Chronic Kidney Disease: No - ENDOCRINE/METABOLIC Hx Hypothyroidism: Yes - HEMATOLOGICAL/ONCOLOGICAL Hx Anemia: No Hx Human Immunodeficiency Virus (HIV): No - INTEGUMENTARY Hx Dermatological Problems: Yes Other/Comment: Hx non-healing wound LLE - MUSCULOSKELETAL/RHEUMATOLOGICAL Hx Arthritis: Yes - GASTROINTESTINAL Hx Gastrointestinal Disorders: No - GENITOURINARY/GYNECOLOGICAL Hx Genitourinary Disorders: No - PSYCHIATRIC Hx Substance Use: No - SURGICAL HISTORY Hx Coronary Artery Bypass Graft: Yes Hx Tonsillectomy: Yes - ANESTHESIA Hx Anesthesia: Yes Hx Anesthesia Reactions: No Hx Malignant Hyperthermia: No Meds Allergies/Adverse Reactions: Allergies Allergy/AdvReac Type Severity Reaction Status Date / Time No Known Allergies Allergy Verified 06/24/17 15:16 Physical Exam - Constitutional Appears: No Acute Distress - Head Exam Head Exam: NORMAL INSPECTION - Eye Exam Eye Exam: EOMI, Normal appearance, PERRL Pupil Exam: NORMAL ACCOMODATION - ENT Exam ENT Exam: Mucous Membranes Moist - Respiratory Exam Respiratory Exam: Clear to Auscultation Bilateral, NORMAL BREATHING PATTERN. absent: Rales, Rhonchi, Wheezes, Stridor - Cardiovascular Exam Cardiovascular Exam: REGULAR RHYTHM, RRR, +S1, +S2. absent: JVD - GI/Abdominal Exam GI & Abdominal Exam: Normal Bowel Sounds, Soft. absent: Tenderness Additional comments: Obese - Extremities Exam Extremities exam: Positive for: pedal edema (+2 bilateral lower extremity edema ), tenderness. Negative for: pedal pulses present (Right pedal pulse faint) - Neurological Exam Neurological exam: Alert, Oriented x3 - Psychiatric Exam Psychiatric exam: Normal Affect, Normal Mood - Skin Skin Exam: Dry, Erythema, Warm Additional comments: Left Lower Extremity - erythematous; ulcers Results - Vital Signs Recent Vital Signs: Last Vital Signs Temp 98.1 F 06/24/17 15:16 Pulse 69 06/24/17 19:04 Resp 20 06/24/17 19:07 BP 148/94 H 06/24/17 19:04 Pulse Ox 98 06/24/17 19:07 - Labs Result Diagrams: 06/24/17 16:20 06/24/17 16:20 Labs: Laboratory Results - last 24 hr 06/24/17 06/24/17 06/24/17 15:18 16:20 16:20 WBC 5.6 RBC 3.13 L Hgb 8.6 L Hct 26.3 L MCV 83.9 MCH 27.5 MCHC 32.8 L RDW 16.5 H Plt Count 230 MPV 9.1 Neut % (Auto) 68.0 Lymph % (Auto) 23.2 Boundary % (Auto) 4.6 Eos % (Auto) 2.4 Baso % (Auto) 1.8 Neut # (Auto) 3.8 Lymph # (Auto) 1.3 Boundary # (Auto) 0.3 Eos # (Auto) 0.1 Baso # (Auto) 0.1 Sodium 142 Potassium 4.8 Chloride 106 Carbon Dioxide 24 Anion Gap 17 BUN 22 H Creatinine 0.9 Est GFR ( Amer) > 60 Est GFR (Non-Af Amer) > 60 POC Glucose (mg/dL) 111 H Random Glucose 105 Calcium 8.6 Total Bilirubin 0.3 AST 13 L ALT 13 Alkaline Phosphatase 103 NT-Pro-B Natriuret Pep 2990 H Total Protein 6.4 Albumin 3.4 L Globulin 3.0 Albumin/Globulin Ratio 1.1 Assessment & Plan - Assessment and Plan (Free Text) Assessment: 1.) Bilateral Lower Extremity Swelling - possibly secondary to CHF - Lasix 40mg IV in the ER - Lasix 20mg IV once - f/u venous doppler - f/u Arterial doppler - Fluid restriction 1000ml - continue Lasix 40mg po daily 2.) Left Lower Extremity Diabetic Ulcers - Podiatry Consult: Dr. Harmon --> help appreciated - Zosyn 3.375 q8h - Vancomycin 1gm q24h 3.) Chest Tightness - History of MS 2012 - Continue home medication: Isosorbid MN ER 60mg daily - f/u Trop x3 - EKG x3 4.) History of CHF - ProBNP: 2990 - ECHO (04/16/2017): EF 60-65% - Cardio Consult: Dr. Fry --> help appreciated - Continue home medications: * Aspirin 81mg daily * Furosemide 40mg daily * Lisinopril 10mg daily * Metoprolol succinate ER 50mg daily 5.) History of Diabetes - ISS - Accuchecks - Hypoglycemia protocol - f/u A1c 6.) History of peripheral neuropathy - Started Gabapentin 100mg tid 7.) HTN - f/u TSH and free T4 - Lisinopril 10mg daily - Metoprolol succinate ER 50mg daily 8.) History of Asthma - Duonebs prn 9.) HLD - Crestor 10mg HS - f/u lipid panel 10.) Prophylaxis - pepcid 20mg daily - heparin sc Case discussed with Dr. Petra Dunne PGY-1 <Anant Lambert - Last Filed: 06/25/17 06:25> Results - Vital Signs Recent Vital Signs: Last Vital Signs Temp 97.5 F L 06/25/17 04:07 Pulse 76 06/25/17 04:07 Resp 18 06/25/17 04:07 BP 151/64 H 06/25/17 04:07 Pulse Ox 100 06/25/17 04:07 - Labs Result Diagrams: 06/24/17 16:20 06/24/17 16:20 Labs: Laboratory Results - last 24 hr 06/24/17 06/24/17 06/24/17 15:18 16:20 16:20 WBC 5.6 RBC 3.13 L Hgb 8.6 L Hct 26.3 L MCV 83.9 MCH 27.5 MCHC 32.8 L RDW 16.5 H Plt Count 230 MPV 9.1 Neut % (Auto) 68.0 Lymph % (Auto) 23.2 Boundary % (Auto) 4.6 Eos % (Auto) 2.4 Baso % (Auto) 1.8 Neut # (Auto) 3.8 Lymph # (Auto) 1.3 Boundary # (Auto) 0.3 Eos # (Auto) 0.1 Baso # (Auto) 0.1 Sodium 142 Potassium 4.8 Chloride 106 Carbon Dioxide 24 Anion Gap 17 BUN 22 H Creatinine 0.9 Est GFR ( Amer) > 60 Est GFR (Non-Af Amer) > 60 POC Glucose (mg/dL) 111 H Random Glucose 105 Calcium 8.6 Total Bilirubin 0.3 AST 13 L ALT 13 Alkaline Phosphatase 103 Troponin I NT-Pro-B Natriuret Pep 2990 H Total Protein 6.4 Albumin 3.4 L Globulin 3.0 Albumin/Globulin Ratio 1.1 06/24/17 06/25/17 22:16 00:45 WBC RBC Hgb Hct MCV MCH MCHC RDW Plt Count MPV Neut % (Auto) Lymph % (Auto) Boundary % (Auto) Eos % (Auto) Baso % (Auto) Neut # (Auto) Lymph # (Auto) Boundary # (Auto) Eos # (Auto) Baso # (Auto) Sodium Potassium Chloride Carbon Dioxide Anion Gap BUN Creatinine Est GFR ( Amer) Est GFR (Non-Af Amer) POC Glucose (mg/dL) 93 Random Glucose Calcium Total Bilirubin AST ALT Alkaline Phosphatase Troponin I < 0.0120 NT-Pro-B Natriuret Pep Total Protein Albumin Globulin Albumin/Globulin Ratio Assessment & Plan - Date & Time Date: 06/25/17 (I have seen and examined the patient. I agree with the findings and plan of care as documented by Dr. Dunne. Patient with acute CHF. ROMIx3 with EKG. Lasix IV. aspirin and Statin. Continue home meds. Also with diabetes and diabetic ulcers of lower extremities. NISS. Accuchecks. Consult to Podiatry. Monitor for acute changes.) Time: 06:23 Attending/Attestation - Attestation I have personally seen and examined this patient.: Yes I have fully participated in the care of the patient.: Yes I have reviewed all pertinent clinical information: Yes
[2017-06-24] MEDS ORDERED: Dextrose 50% SYRINGE Inj (50 ml) IV PRN (21:22)
[2017-06-24] MEDS ORDERED: Glucagon Recombinant 1 mg Inj IM PRN (21:22)
[2017-06-24] MEDS: Piperacill/Tazo 3.375gm in Dex 3.375 GM/50 ML BAG IVPB SCH (22:21)
[2017-06-24] MEDS: (Novolin R) Insulin Human Regular 100 units/ml vial SC SCH (22:55)
[2017-06-24] MEDS: Vancomycin 1 gm/NS 200 ml 1 GM/200 ML BAG IVPB SCH (23:07)
[2017-06-25] MEDS ORDERED: Albuterol-Ipratrop 3 mg / 0.5 (3 ml) UD INH PRN (00:44)
[2017-06-25] MEDS: Piperacill/Tazo 3.375gm in Dex 3.375 GM/50 ML BAG IVPB SCH ×3 (04:42→20:30)
[2017-06-25] MEDS: Levothyroxine 50 MCG TAB PO SCH (05:29)
[2017-06-25 06:43] LABS: EOS # 0.1 K/uL (0.0-0.7); LYMPH # 1.3 K/uL (1.0-4.3); LYMPH % 25.3 % (20.0-40.0); MEAN CELL VOLUME 83.4 fL (81.0-99.0); MEAN CORPUSCULAR HEMOGLOBIN 27.7 pg (27.0-31.0); MEAN CORPUSCULAR HGB CONC 33.3 g/dL (33.0-37.0); MEAN PLATELET VOLUME 9.3 fL (7.2-11.7); MONO # 0.3 K/uL (0.0-0.8); MONO % 6.1 % (0.0-10.0); NEUT # 3.3 K/uL (1.8-7.0); NEUT % 64.6 % (50.0-75.0); RBC 3.62 Mil/uL (3.80-5.20); RED CELL DISTRIBUTION WIDTH 16.2 % (11.5-14.5)
[2017-06-25 07:16] LABS: LDL CHOLESTEROL 106 mg/dL (0-129)
[2017-06-25] MEDS: (Novolin R) Insulin Human Regular 100 units/ml vial SC SCH ×4 (07:30→22:00)
[2017-06-25 07:37] LABS: ALB/GLOB RATIO 1.1 (1.0-2.1); ALBUMIN 3.6 g/dL (3.5-5.0); ALT/SGPT 11 U/L (9-52); AST/SGOT 22 U/L (14-36); BLOOD UREA NITROGEN 21 mg/dL (7-17); CALCIUM 9.4 mg/dl (8.6-10.4); GFR AFRICAN-AMERICAN > 60; GFR NON-AFRICAN AMERICAN 57; HDL CHOLESTEROL 38 mg/dL (30-70)
[2017-06-25] MEDS: Metoprolol Succinate 50 mg XL Tab PO SCH (09:32)
--- NOTE | 2017-06-25 10:23 | RAD ---
Examination: Chest portable Comparison: 05/13/2017 Findings: No pulmonary infiltrate. No pleural effusion or pneumothorax. Normal heart size. Status post CABG. Sternotomy wires. Congestive change noted. No osseous abnormality appreciated. . Impression: No infiltrate. Congestive change. Status post CABG.
--- NOTE | 2017-06-25 11:08 | CP.PCM.PN ---
<Toan Eubanks S - Last Filed: 06/25/17 13:42> Subjective - Date & Time of Evaluation Date of Evaluation: 06/25/17 Time of Evaluation: 07:30 - Subjective Subjective: Medicine progress note for Dr. Rivero Patient seen and examined. Patient reports doing a bit better today. Patient was seen resting on her side without a nasal cannula. Patient has no other complaints at the moment. No acute events overnight. Objective - Vital Signs/Intake and Output Vital Signs (last 24 hours): Temp Pulse Resp BP Pulse Ox 97.8 F 65 16 150/42 L 97 06/25/17 08:00 06/25/17 09:12 06/25/17 09:12 06/25/17 09:31 06/25/17 09:12 Intake and Output: 06/25/17 06/25/17 06:59 18:59 Intake Total 290 Output Total 600 Balance -310 - Medications Medications: Current Medications Albuterol/Ipratropium (Duoneb 3 Mg/0.5 Mg (3 Ml) Ud) 3 ml INH RQ6 PRN PRN Reason: Shortness of Breath Last Admin: 06/25/17 07:15 Dose: 3 ml Allopurinol (Zyloprim) 100 mg PO DAILY [facility] Last Admin: 06/25/17 09:32 Dose: 100 mg Aspirin (Aspirin Chewable) 81 mg PO DAILY [facility] Last Admin: 06/25/17 09:32 Dose: 81 mg Dextrose (Dextrose 50% Inj) 0 ml IV STAT PRN; Protocol PRN Reason: Hypoglycemia Protocol Dextrose (Glutose 15) 0 gm PO ONCE PRN; Protocol PRN Reason: Hypoglycemia Protocol Famotidine (Pepcid) 20 mg PO DAILY [facility] Last Admin: 06/25/17 09:32 Dose: 20 mg Furosemide (Lasix) 40 mg PO DAILY [facility] Last Admin: 06/25/17 09:31 Dose: 40 mg Gabapentin (Neurontin) 100 mg PO TID [facility] Last Admin: 06/25/17 09:32 Dose: 100 mg Glucagon (Glucagen Diagnostic Kit) 0 mg IM STAT PRN; Protocol PRN Reason: Hypoglycemia Protocol Heparin Sodium (Porcine) (Heparin) 5,000 units SC Q8 [facility] Last Admin: 06/25/17 05:11 Dose: 5,000 units Dextrose (Dextrose 5% In Water 1000 Ml) 1,000 mls @ 0 mls/hr IV .Q0M PRN; Protocol; Per Protocol PRN Reason: Hypoglycemia Protocol Piperacillin Sod/Tazobactam Sod (Zosyn 3.375 Gm Iv Premix) 3.375 gm in 50 mls @ 200 mls/hr IVPB Q8H [facility] PRN Reason: Protocol Last Admin: 06/25/17 04:42 Dose: 200 mls/hr Vancomycin/Sodium Chloride (Vancomycin 1 Gm/Ns 200 Ml) 1 gm in 200 mls @ 166.7 mls/hr IVPB Q24H [facility] PRN Reason: Protocol Stop: 06/29/17 21:31 Last Admin: 06/24/17 23:07 Dose: 166.7 mls/hr Insulin Human Regular (Novolin R) 0 unit SC ACHS [facility] PRN Reason: Protocol Last Admin: 06/24/17 22:55 Dose: Not Given Isosorbide Mononitrate (Imdur) 60 mg PO DAILY [facility] Last Admin: 06/25/17 09:31 Dose: 60 mg Levothyroxine Sodium (Synthroid) 50 mcg PO DAILY@0630 [facility] Last Admin: 06/25/17 05:29 Dose: 50 mcg Lisinopril (Zestril) 10 mg PO DAILY [facility] Last Admin: 06/25/17 09:32 Dose: 10 mg Metoprolol Succinate (Toprol Xl) 50 mg PO DAILY [facility] Last Admin: 06/25/17 09:32 Dose: 50 mg Rosuvastatin Calcium (Crestor) 5 mg PO HS [facility] Last Admin: 06/24/17 23:10 Dose: 5 mg - Labs Labs: 06/25/17 06:34 06/25/17 06:34 - Additional Findings Additional findings: - Constitutional Appears: No Acute Distress - Head Exam Head Exam: NORMAL INSPECTION - Eye Exam Eye Exam: EOMI, Normal appearance - ENT Exam ENT Exam: Mucous Membranes Moist - Respiratory Exam Respiratory Exam: Decreased breath sounds, NORMAL BREATHING PATTERN. absent: Rales, Rhonchi, Wheezes, Stridor - Cardiovascular Exam Cardiovascular Exam: REGULAR RHYTHM, RRR, +S1, +S2. absent: JVD - GI/Abdominal Exam GI & Abdominal Exam: Normal Bowel Sounds, Soft. absent: Tenderness Additional comments: Obese body habitus - Extremities Exam Extremities exam: Positive for: pedal edema (+2 bilateral lower extremity edema ), tenderness. Negative for: pedal pulses present (Right pedal pulse faint) - Neurological Exam Neurological exam: Alert, Oriented x3 - Psychiatric Exam Psychiatric exam: Normal Affect, Normal Mood - Skin Skin Exam: Dry, Erythema, Warm Additional comments: Bilateral legs - erythematous. Ulcer on the posterior heel of the left foot Assessment and Plan - Assessment and Plan (Free Text) Plan: 1.) Bilateral Lower Extremity Swelling Likely venous stasis component Lasix 20mg IV daily f/u venous doppler f/u Arterial doppler Fluid restriction 1000ml Holding PO lasix in favor of IV for now 2.) Left Lower Extremity Diabetic Ulcers Podiatry Consult: Dr. Harmon --> help appreciated Zosyn 3.375 q8h Vancomycin 1gm q24h f/u left foot xray 3.) Chest Tightness Negative Trop x3 4.) History of CHF ProBNP: 2990 ECHO (04/16/2017): EF 60-65% Cardio Consult: Dr. Fry --> help appreciated Continue home medications: * Aspirin 81mg daily * Furosemide 40mg daily * Lisinopril 10mg daily * Imdur 60 mg PO daily * Metoprolol succinate ER 50mg daily f/u repeat CXR 5.) History of Diabetes ISS Accuchecks Hypoglycemia protocol Hemoglobin A1c 6.4 6.) History of peripheral neuropathy Started Gabapentin 100mg tid 7.) HTN Lisinopril 10mg daily Metoprolol succinate ER 50mg daily Imdur 60 mg PO daily 8.) History of Asthma Duonebs prn 9.) HLD Crestor 5 mg HS lipid panel reveals elevated TGs 236, LDL 106, HDL 38 10.) Prophylaxis pepcid 20mg daily heparin sc Discussed with Dr. Josefa Eubanks PGY-1 <Yuri Rivero - Last Filed: 06/25/17 15:01> Objective - Vital Signs/Intake and Output Vital Signs (last 24 hours): Temp Pulse Resp BP Pulse Ox 97.8 F 53 L 15 86/41 L 100 06/25/17 12:00 06/25/17 13:50 06/25/17 13:50 06/25/17 13:55 06/25/17 13:50 Intake and Output: 06/25/17 06/25/17 06:59 18:59 Intake Total 290 380 Output Total 600 650 Balance -310 -270 - Medications Medications: Current Medications Albuterol/Ipratropium (Duoneb 3 Mg/0.5 Mg (3 Ml) Ud) 3 ml INH RQ6 PRN PRN Reason: Shortness of Breath Last Admin: 06/25/17 07:15 Dose: 3 ml Allopurinol (Zyloprim) 100 mg PO DAILY [facility] Last Admin: 06/25/17 09:32 Dose: 100 mg Aspirin (Aspirin Chewable) 81 mg PO DAILY [facility] Last Admin: 06/25/17 09:32 Dose: 81 mg Dextrose (Dextrose 50% Inj) 0 ml IV STAT PRN; Protocol PRN Reason: Hypoglycemia Protocol Dextrose (Glutose 15) 0 gm PO ONCE PRN; Protocol PRN Reason: Hypoglycemia Protocol Famotidine (Pepcid) 20 mg PO DAILY [facility] Last Admin: 06/25/17 09:32 Dose: 20 mg Furosemide (Lasix) 20 mg IVP DAILY [facility] Last Admin: 06/25/17 13:55 Dose: Not Given Gabapentin (Neurontin) 100 mg PO TID [facility] Last Admin: 06/25/17 13:56 Dose: 100 mg Glucagon (Glucagen Diagnostic Kit) 0 mg IM STAT PRN; Protocol PRN Reason: Hypoglycemia Protocol Heparin Sodium (Porcine) (Heparin) 5,000 units SC Q8 [facility] Last Admin: 06/25/17 13:47 Dose: 5,000 units Dextrose (Dextrose 5% In Water 1000 Ml) 1,000 mls @ 0 mls/hr IV .Q0M PRN; Protocol; Per Protocol PRN Reason: Hypoglycemia Protocol Piperacillin Sod/Tazobactam Sod (Zosyn 3.375 Gm Iv Premix) 3.375 gm in 50 mls @ 200 mls/hr IVPB Q8H [facility] PRN Reason: Protocol Last Admin: 06/25/17 13:46 Dose: 200 mls/hr Vancomycin/Sodium Chloride (Vancomycin 1 Gm/Ns 200 Ml) 1 gm in 200 mls @ 166.7 mls/hr IVPB Q24H [facility] PRN Reason: Protocol Stop: 06/29/17 21:31 Last Admin: 06/24/17 23:07 Dose: 166.7 mls/hr Insulin Human Regular (Novolin R) 0 unit SC ACHS [facility] PRN Reason: Protocol Last Admin: 06/25/17 11:30 Dose: Not Given Isosorbide Mononitrate (Imdur) 60 mg PO DAILY [facility] Last Admin: 06/25/17 09:31 Dose: 60 mg Levothyroxine Sodium (Synthroid) 50 mcg PO DAILY@0630 [facility] Last Admin: 06/25/17 05:29 Dose: 50 mcg Lisinopril (Zestril) 10 mg PO DAILY [facility] Last Admin: 06/25/17 09:32 Dose: 10 mg Metoprolol Succinate (Toprol Xl) 50 mg PO DAILY [facility] Last Admin: 06/25/17 09:32 Dose: 50 mg Rosuvastatin Calcium (Crestor) 5 mg PO HS [facility] Last Admin: 06/24/17 23:10 Dose: 5 mg - Labs Labs: 06/25/17 06:34 06/25/17 06:34 Attending/Attestation - Attestation I have personally seen and examined this patient.: Yes I have fully participated in the care of the patient.: Yes I have reviewed all pertinent clinical information, including history, physical exam and plan: Yes Notes (Text): 06/25/17 14:54 Medical attending: Patient was seen and examined by me. Agree with the above note by the resident The patient was explained she has not taken medication for a while. She says she understands she is supposed to be on lasix but she just has not taken it. The swelling in her legs has decreased somewhat. There is a history of CHF, also there was an echo done in late March of 2017. Examination of the left foot shows also an area of the calcaneus that has a closed wound. She says there is pain there. Ordered XRAY of the feet, PA and LA Because of the duration of the pain on the left foot, there are also orders for arterial doppler and venous doppler studies as well. If the dopplers come back showing insuffciency we may have to get vascular evaluation. thank you Yuri Rivero
--- NOTE | 2017-06-25 11:58 | CARD ---
APPROVED REPORT EKG Measurement Heart [id number] <Conclusion> Normal sinus rhythm Minimal voltage criteria for LVH, may be normal variant Inferior infarct, age undetermined Abnormal ECG
--- NOTE | 2017-06-25 14:13 | RAD ---
Chest x-ray single frontal view History: Fluid overload. Comparison: 06/24/2017 Findings: Mild venous congestion. Biapical pleural thickening with upper lobe granulomatous changes. Few scattered nodular densities in the bilateral lung sheridan. Status post median sternotomy and CABG. Tortuous aorta. Mild cardiomegaly. Right hilar prominence. Degenerative changes in the spine and shoulders. Small rounded sclerotic foci overlying the left proximal humerus. Impression: Mild venous congestion. Biapical pleural thickening with upper lobe granulomatous changes. Few scattered nodular densities in the bilateral lung sheridan. Status post median sternotomy and CABG. Tortuous aorta. Mild cardiomegaly. Right hilar prominence. Degenerative changes in the spine and shoulders. Small rounded sclerotic foci overlying the left proximal humerus.
--- NOTE | 2017-06-25 18:06 | RAD ---
PROCEDURE: Left Foot Radiographs. HISTORY: heel wound COMPARISON: None. FINDINGS: BONES: Small plantar calcaneal spur. No fracture. JOINTS: Degenerative changes interphalangeal joint distribution. SOFT TISSUES: Diffuse soft tissue swelling without focal abnormality. OTHER FINDINGS: None. IMPRESSION: Soft tissue swelling without acute articular or osseous abnormality.
[2017-06-25] MEDS: Vancomycin 1 gm/NS 200 ml 1 GM/200 ML BAG IVPB SCH (21:00)
--- NOTE | 2017-06-26 00:24 | CON ---
DATE: REASON FOR CONSULTATION: Worsening of her leg swelling with scaling and itchiness. HISTORY OF PRESENT ILLNESS: The patient is 61 years old female who has a history of coronary artery disease, status post coronary artery bypass surgery in the past. The patient was last catheterized by Dr. Dasilva in 02/2016 and the conclusion was multivessel disease with moderate to severe mitral stenosis, left anterior mammary graft to the LAD is patent, saphenous vein graft to the posterolateral branch is patent, however, no other grafts are patent. Angio cath and the patient's most recent echocardiographic study in March of this year did not reveal mitral valve stenosis, however, the mitral annular calcification was moderate to severe. The patient denied any chest pain or shortness of breath at this time. SOCIAL HISTORY: Nonsmoker. She used to be homeless, now she lives with her friend. MEDICATIONS: Aspirin 81 mg once a day, Crestor 5 mg once a day, heparin 5000 units subcutaneous every 8 hours, Imdur 60 mg daily, Lasix 20 mg intravenously twice a day, Synthroid 50 mcg once a day, Toprol XL 50 mg once a day, Zestril 10 mg once a day, vancomycin 1 gm intravenously daily, Zosyn 3.375 gm intravenously every 8 hours, Zyloprim 100 mg daily. PHYSICAL EXAMINATION: GENERAL: The patient is a middle aged female who does not appear to be in no acute distress. VITAL SIGNS: Blood pressure 150/42, heart rate 65, respirations 16, temperature 97.8. HEENT: Normocephalic. CHEST: Bilateral rhonchi. HEART: S1, S2 regular. ABDOMEN: Soft. EXTREMITIES: 2+ pitting edema with significant scaling over both lower extremities. Venous Doppler lower extremity, impression, normal compressibility of the left common femoral proximal to mid femoral, popliteal, distal posterior tibial, distal peroneal, and greater saphenous vein, technically difficult due to swelling. EKG revealed normal sinus rhythm at 75, considerable infarct. Echocardiography study performed in March of last year revealed mitral annular calcification. No mitral stenosis. Ejection fraction have ranged from 60% to 65%, mild to moderate tricuspid insufficiency. Chest x-ray revealed mild cardiomegaly with mild congestive heart failure. LABORATORY DATA: Two sets of troponins are negative. SMA-7 today is within normal limits except for BUN of 21, phosphorous is elevated 4.8. Pro-BNP is 2990. Triglycerides elevated at 236. ASSESSMENT: 1. The patient has congestive heart failure. 2. Consider bilateral leg cellulitis. 3. Coronary artery disease, status post coronary artery bypass surgery. 4. Hypothyroidism. RECOMMENDATIONS: Continue chronic IV Zosyn and IV vancomycin. Continue aspirin 81 mg once a day, heparin 5000 units subcutaneous every 8 hours, Lasix 20 mg intravenously once a day, Imdur 60 mg once a day, Neurontin 100 mg t.i.d., Zestril 10 mg once a day. Benoit Fry MD
[2017-06-26] MEDS: Piperacill/Tazo 3.375gm in Dex 3.375 GM/50 ML BAG IVPB SCH ×3 (05:50→20:30)
[2017-06-26] MEDS: Levothyroxine 50 MCG TAB PO SCH (05:50)
[2017-06-26 06:32] LABS: BASO % 0.7 % (0.0-2.0); EOS # 0.1 K/uL (0.0-0.7); EOS % 2.4 % (0.0-4.0); LYMPH # 1.2 K/uL (1.0-4.3); MEAN CELL VOLUME 83.6 fL (81.0-99.0); MEAN CORPUSCULAR HEMOGLOBIN 27.3 pg (27.0-31.0); MEAN CORPUSCULAR HGB CONC 32.6 g/dL (33.0-37.0); MEAN PLATELET VOLUME 8.9 fL (7.2-11.7); MONO # 0.2 K/uL (0.0-0.8); NEUT # 3.3 K/uL (1.8-7.0); NEUT % 67.9 % (50.0-75.0); NRBC % 0.1 % (0.0-2.0); RBC 3.66 Mil/uL (3.80-5.20); RED CELL DISTRIBUTION WIDTH 15.7 % (11.5-14.5); WHITE BLOOD COUNT 4.9 K/uL (4.8-10.8)
[2017-06-26 06:48] LABS: ALB/GLOB RATIO 1.2 (1.0-2.1); ALBUMIN 3.4 g/dL (3.5-5.0); CALCIUM 8.8 mg/dl (8.6-10.4)
[2017-06-26] MEDS: (Novolin R) Insulin Human Regular 100 units/ml vial SC SCH ×4 (07:30→22:00)
--- NOTE | 2017-06-26 07:36 | CP.PCM.PN ---
<Toan Eubanks - Last Filed: 06/26/17 14:43> Subjective - Date & Time of Evaluation Date of Evaluation: 06/26/17 Time of Evaluation: 07:50 - Subjective Subjective: Medicine progress note for Dr. Rivero Patient seen and examined. Patient reports improvement in her leg edema but she has foot pain with ambulation. Patient denies any other acute complaints at this time. Objective - Vital Signs/Intake and Output Vital Signs (last 24 hours): Temp Pulse Resp BP Pulse Ox 97.8 F 53 L 17 98/38 L 95 06/26/17 04:00 06/26/17 04:00 06/26/17 04:00 06/26/17 04:00 06/26/17 04:00 Intake and Output: 06/26/17 06/26/17 06:59 18:59 Intake Total 50 Output Total 300 Balance -250 - Medications Medications: Current Medications Acetaminophen (Tylenol 325mg Tab) 650 mg PO Q6 PRN PRN Reason: Pain, Mild (1-3) Last Admin: 06/26/17 05:48 Dose: 650 mg Albuterol/Ipratropium (Duoneb 3 Mg/0.5 Mg (3 Ml) Ud) 3 ml INH RQ6 PRN PRN Reason: Shortness of Breath Last Admin: 06/25/17 07:15 Dose: 3 ml Allopurinol (Zyloprim) 100 mg PO DAILY [facility] Last Admin: 06/25/17 09:32 Dose: 100 mg Aspirin (Aspirin Chewable) 81 mg PO DAILY [facility] Last Admin: 06/25/17 09:32 Dose: 81 mg Dextrose (Dextrose 50% Inj) 0 ml IV STAT PRN; Protocol PRN Reason: Hypoglycemia Protocol Dextrose (Glutose 15) 0 gm PO ONCE PRN; Protocol PRN Reason: Hypoglycemia Protocol Famotidine (Pepcid) 20 mg PO DAILY [facility] Last Admin: 06/25/17 09:32 Dose: 20 mg Furosemide (Lasix) 20 mg IVP DAILY [facility] Last Admin: 06/25/17 13:55 Dose: Not Given Gabapentin (Neurontin) 100 mg PO TID [facility] Last Admin: 06/25/17 17:53 Dose: 100 mg Glucagon (Glucagen Diagnostic Kit) 0 mg IM STAT PRN; Protocol PRN Reason: Hypoglycemia Protocol Heparin Sodium (Porcine) (Heparin) 5,000 units SC Q8 [facility] Last Admin: 06/26/17 05:48 Dose: 5,000 units Dextrose (Dextrose 5% In Water 1000 Ml) 1,000 mls @ 0 mls/hr IV .Q0M PRN; Protocol; Per Protocol PRN Reason: Hypoglycemia Protocol Piperacillin Sod/Tazobactam Sod (Zosyn 3.375 Gm Iv Premix) 3.375 gm in 50 mls @ 200 mls/hr IVPB Q8H JS PRN Reason: Protocol Last Admin: 06/26/17 05:50 Dose: 200 mls/hr Vancomycin/Sodium Chloride (Vancomycin 1 Gm/Ns 200 Ml) 1 gm in 200 mls @ 166.7 mls/hr IVPB Q24H [facility] PRN Reason: Protocol Stop: 06/29/17 21:31 Last Admin: 06/25/17 21:00 Dose: 166.7 mls/hr Insulin Human Regular (Novolin R) 0 unit SC ACHS [facility] PRN Reason: Protocol Last Admin: 06/25/17 16:30 Dose: Not Given Isosorbide Mononitrate (Imdur) 60 mg PO DAILY [facility] Last Admin: 06/25/17 09:31 Dose: 60 mg Levothyroxine Sodium (Synthroid) 50 mcg PO DAILY@0630 [facility] Last Admin: 06/26/17 05:50 Dose: 50 mcg Lisinopril (Zestril) 10 mg PO DAILY [facility] Last Admin: 06/25/17 09:32 Dose: 10 mg Metoprolol Succinate (Toprol Xl) 50 mg PO DAILY [facility] Last Admin: 06/25/17 09:32 Dose: 50 mg Rosuvastatin Calcium (Crestor) 5 mg PO [facility] Last Admin: 06/25/17 21:12 Dose: 5 mg - Labs Labs: 06/26/17 06:21 06/26/17 06:21 - Additional Findings Additional findings: - Constitutional Appears: No Acute Distress - Head Exam Head Exam: NORMAL INSPECTION - Eye Exam Eye Exam: EOMI, Normal appearance - ENT Exam ENT Exam: Mucous Membranes Moist - Respiratory Exam Respiratory Exam: Decreased breath sounds, NORMAL BREATHING PATTERN. absent: Rales, Rhonchi, Wheezes, Stridor - Cardiovascular Exam Cardiovascular Exam: REGULAR RHYTHM, RRR, +S1, +S2. absent: JVD - GI/Abdominal Exam GI & Abdominal Exam: Normal Bowel Sounds, Soft. absent: Tenderness Additional comments: Obese body habitus - Extremities Exam Extremities exam: Positive for: pedal edema (+2 bilateral lower extremity edema ), tenderness. Negative for: pedal pulses present (Right pedal pulse faint) - Neurological Exam Neurological exam: Alert, Oriented x3 - Psychiatric Exam Psychiatric exam: Normal Affect, Normal Mood - Skin Skin Exam: Dry, Erythema, Warm Additional comments: Bilateral legs - erythematous. Ulcer on the posterior heel of the left foot Assessment and Plan - Assessment and Plan (Free Text) Plan: 1.) Bilateral Lower Extremity Swelling Likely venous stasis component Lasix 20mg IV daily Patient refused venous and arterial doppler due to pain during the studies Fluid restriction 1000ml Holding PO lasix in favor of IV for now 2.) Left Lower Extremity Diabetic Ulcers Podiatry Consult: Dr. Harmon --> help appreciated Zosyn 3.375 q8h Vancomycin 1gm q24h Left foot xray shows calcaneal spur without evidence of osseus abnormalities 3.) Chest Tightness Negative Trop x3 4.) History of CHF ProBNP: 2990 ECHO (04/16/2017): EF 60-65% Cardio Consult: Dr. Fry --> help appreciated Continue home medications: * Aspirin 81mg daily * Furosemide 40mg daily * Lisinopril 10mg daily * Imdur 60 mg PO daily * Metoprolol succinate ER 50mg daily Repeat CXR with mild venous congestion 5.) History of Diabetes ISS Accuchecks Hypoglycemia protocol Hemoglobin A1c 6.4 6.) History of peripheral neuropathy Started Gabapentin 100mg tid 7.) HTN Lisinopril 10mg daily Metoprolol succinate ER 50mg daily Imdur 60 mg PO daily 8.) History of Asthma Duonebs prn 9.) HLD Crestor 5 mg HS lipid panel reveals elevated TGs 236, LDL 106, HDL 38 10.) Prophylaxis pepcid 20mg daily heparin sc PT eval and treat Discussed with Dr. Josefa Eubanks PGY-1 <Yuri Rivero - Last Filed: 06/26/17 15:36> Objective - Vital Signs/Intake and Output Vital Signs (last 24 hours): Temp Pulse Resp BP Pulse Ox 97.4 F L 70 14 95/36 L 98 06/26/17 12:00 06/26/17 12:00 06/26/17 12:00 06/26/17 12:00 06/26/17 12:00 Intake and Output: 06/26/17 06/26/17 06:59 18:59 Intake Total 50 460 Output Total 300 800 Balance -250 -340 - Medications Medications: Current Medications Acetaminophen (Tylenol 325mg Tab) 650 mg PO Q6 PRN PRN Reason: Pain, Mild (1-3) Last Admin: 06/26/17 15:33 Dose: 650 mg Albuterol/Ipratropium (Duoneb 3 Mg/0.5 Mg (3 Ml) Ud) 3 ml INH RQ6 PRN PRN Reason: Shortness of Breath Last Admin: 06/25/17 07:15 Dose: 3 ml Allopurinol (Zyloprim) 100 mg PO DAILY [facility] Last Admin: 06/26/17 09:28 Dose: 100 mg Aspirin (Aspirin Chewable) 81 mg PO DAILY [facility] Last Admin: 06/26/17 09:29 Dose: 81 mg Dextrose (Dextrose 50% Inj) 0 ml IV STAT PRN; Protocol PRN Reason: Hypoglycemia Protocol Dextrose (Glutose 15) 0 gm PO ONCE PRN; Protocol PRN Reason: Hypoglycemia Protocol Famotidine (Pepcid) 20 mg PO DAILY [facility] Last Admin: 06/26/17 09:28 Dose: 20 mg Gabapentin (Neurontin) 100 mg PO TID [facility] Last Admin: 06/26/17 13:22 Dose: 100 mg Glucagon (Glucagen Diagnostic Kit) 0 mg IM STAT PRN; Protocol PRN Reason: Hypoglycemia Protocol Heparin Sodium (Porcine) (Heparin) 5,000 units SC Q8 [facility] Last Admin: 06/26/17 13:22 Dose: 5,000 units Dextrose (Dextrose 5% In Water 1000 Ml) 1,000 mls @ 0 mls/hr IV .Q0M PRN; Protocol; Per Protocol PRN Reason: Hypoglycemia Protocol Piperacillin Sod/Tazobactam Sod (Zosyn 3.375 Gm Iv Premix) 3.375 gm in 50 mls @ 200 mls/hr IVPB Q8H [facility] PRN Reason: Protocol Last Admin: 06/26/17 13:21 Dose: 200 mls/hr Vancomycin/Sodium Chloride (Vancomycin 1 Gm/Ns 200 Ml) 1 gm in 200 mls @ 166.7 mls/hr IVPB Q24H [facility] PRN Reason: Protocol Stop: 06/29/17 21:31 Last Admin: 06/25/17 21:00 Dose: 166.7 mls/hr Insulin Human Regular (Novolin R) 0 unit SC ACHS [facility] PRN Reason: Protocol Last Admin: 06/26/17 11:30 Dose: Not Given Isosorbide Mononitrate (Imdur) 60 mg PO DAILY [facility] Last Admin: 06/26/17 09:28 Dose: 60 mg Levothyroxine Sodium (Synthroid) 50 mcg PO DAILY@0630 [facility] Last Admin: 06/26/17 05:50 Dose: 50 mcg Lisinopril (Zestril) 10 mg PO DAILY [facility] Last Admin: 06/26/17 09:28 Dose: 10 mg Metoprolol Succinate (Toprol Xl) 50 mg PO DAILY [facility] Last Admin: 06/26/17 09:30 Dose: Not Given Mupirocin (Bactroban Ointment) 0 gm TOP BID [facility] Rosuvastatin Calcium (Crestor) 5 mg PO HS [facility] Last Admin: 06/25/17 21:12 Dose: 5 mg - Labs Labs: 06/26/17 06:21 06/26/17 06:21 Attending/Attestation - Attestation I have personally seen and examined this patient.: Yes I have fully participated in the care of the patient.: Yes I have reviewed all pertinent clinical information, including history, physical exam and plan: Yes Notes (Text): 06/26/17 15:36 Medical attending: Patient was seen and examined by me, agree with the above note by medical scientific liaison. The patient was not in any acute distress we saw in the morning. From what I understand she refused to have a venous and arterial Dopplers this morning. The results of which are not immediately clear to me. She reports that the swelling in her lower extremities is less than before. Her continuing with the IV Zosyn and IV vancomycin. Imaging from the left calcaneal area didn't show anything suggesting osteomyelitis. Her Accu-Cheks have been relatively stable with sugars in the 90 range. So this time were continue with the low-dose IV Lasix. It is possible that we might be would discharge the patient tomorrow depending on how she's doing. We' ll ask physical therapy to come by and take a look at her as well. thank you Yuri Rivero
[2017-06-26] MEDS: Metoprolol Succinate 50 mg XL Tab PO SCH (09:30)
--- NOTE | 2017-06-26 13:42 | CP.PCM.CON ---
History of Present Illness - History of Present Illness History of Present Illness: Podiatry Consult Note- Dr. Harmon This is a 61 yo female pt with pmh CHF, MO, DM II, asthma, peripheral neuropathy seen at bedside today with Dr. Harmon present for left foot ulcerations. Patient recently admitted for acute CHF exacerbation associated with lower extremity edema. Pt complains of tenderness to her left heel where she has a wound, she is unsure how long she has had this for. She also complains of pain to her left heel and leg. Reports pain is controlled with medication. No other complaints. Review of Systems - Review of Systems Review of Systems: all systems reviewed and found to be negative outside hpi Past Patient History - Infectious Disease Hx of Infectious Diseases: None - Tetanus Immunizations Tetanus Immunization: Unknown - Past Medical History & Family History Past Medical History?: Yes - Past Social History Smoking Status: Never Smoked - CARDIAC Hx Cardiac Disorders: Yes Hx Congestive Heart Failure: Yes Hx Hypercholesterolemia: Yes Hx Hypertension: Yes Hx Peripheral Edema: Yes - PULMONARY Hx Respiratory Disorders: Yes Hx Asthma: Yes Hx Chronic Obstructive Pulmonary Disease (COPD): Yes - NEUROLOGICAL Hx Neurological Disorder: No - HEENT Hx HEENT Problems: No Other/Comment: Uses eyeglasses - RENAL Hx Chronic Kidney Disease: No - ENDOCRINE/METABOLIC Hx Endocrine Disorders: Yes Hx Diabetes Mellitus Type 2: Yes Hx Hypothyroidism: Yes - HEMATOLOGICAL/ONCOLOGICAL Hx Blood Disorders: No Hx Anemia: No Hx Human Immunodeficiency Virus (HIV): No - INTEGUMENTARY Hx Dermatological Problems: Yes Other/Comment: Hx non-healing wound LLE - MUSCULOSKELETAL/RHEUMATOLOGICAL Hx Musculoskeletal Disorders: Yes Hx Arthritis: Yes Hx Falls: No - GASTROINTESTINAL Hx Gastrointestinal Disorders: No - GENITOURINARY/GYNECOLOGICAL Hx Genitourinary Disorders: No - PSYCHIATRIC Hx Psychophysiologic Disorder: No Hx Substance Use: No - SURGICAL HISTORY Hx Surgeries: Yes Hx Coronary Artery Bypass Graft: Yes Hx Tonsillectomy: Yes - ANESTHESIA Hx Anesthesia: Yes Hx Anesthesia Reactions: No Hx Malignant Hyperthermia: No Has any member of the family had a problem w/ anesthesia?: No Meds Allergies/Adverse Reactions: Allergies Allergy/AdvReac Type Severity Reaction Status Date / Time No Known Allergies Allergy Verified 06/24/17 15:16 - Medications Medications: Current Medications Acetaminophen (Tylenol 325mg Tab) 650 mg PO Q6 PRN PRN Reason: Pain, Mild (1-3) Last Admin: 06/26/17 05:48 Dose: 650 mg Albuterol/Ipratropium (Duoneb 3 Mg/0.5 Mg (3 Ml) Ud) 3 ml INH RQ6 PRN PRN Reason: Shortness of Breath Last Admin: 06/25/17 07:15 Dose: 3 ml Allopurinol (Zyloprim) 100 mg PO DAILY [facility] Last Admin: 06/26/17 09:28 Dose: 100 mg Aspirin (Aspirin Chewable) 81 mg PO DAILY [facility] Last Admin: 06/26/17 09:29 Dose: 81 mg Dextrose (Dextrose 50% Inj) 0 ml IV STAT PRN; Protocol PRN Reason: Hypoglycemia Protocol Dextrose (Glutose 15) 0 gm PO ONCE PRN; Protocol PRN Reason: Hypoglycemia Protocol Famotidine (Pepcid) 20 mg PO DAILY [facility] Last Admin: 06/26/17 09:28 Dose: 20 mg Furosemide (Lasix) 20 mg IVP DAILY [facility] Last Admin: 06/26/17 09:30 Dose: 20 mg Gabapentin (Neurontin) 100 mg PO TID [facility] Last Admin: 06/26/17 13:22 Dose: 100 mg Glucagon (Glucagen Diagnostic Kit) 0 mg IM STAT PRN; Protocol PRN Reason: Hypoglycemia Protocol Heparin Sodium (Porcine) (Heparin) 5,000 units SC Q8 [facility] Last Admin: 06/26/17 13:22 Dose: 5,000 units Dextrose (Dextrose 5% In Water 1000 Ml) 1,000 mls @ 0 mls/hr IV .Q0M PRN; Protocol; Per Protocol PRN Reason: Hypoglycemia Protocol Piperacillin Sod/Tazobactam Sod (Zosyn 3.375 Gm Iv Premix) 3.375 gm in 50 mls @ 200 mls/hr IVPB Q8H [facility] PRN Reason: Protocol Last Admin: 06/26/17 13:21 Dose: 200 mls/hr Vancomycin/Sodium Chloride (Vancomycin 1 Gm/Ns 200 Ml) 1 gm in 200 mls @ 166.7 mls/hr IVPB Q24H [facility] PRN Reason: Protocol Stop: 06/29/17 21:31 Last Admin: 06/25/17 21:00 Dose: 166.7 mls/hr Insulin Human Regular (Novolin R) 0 unit SC ACHS [facility] PRN Reason: Protocol Last Admin: 06/26/17 11:30 Dose: Not Given Isosorbide Mononitrate (Imdur) 60 mg PO DAILY [facility] Last Admin: 06/26/17 09:28 Dose: 60 mg Levothyroxine Sodium (Synthroid) 50 mcg PO DAILY@0630 [facility] Last Admin: 06/26/17 05:50 Dose: 50 mcg Lisinopril (Zestril) 10 mg PO DAILY [facility] Last Admin: 06/26/17 09:28 Dose: 10 mg Metoprolol Succinate (Toprol Xl) 50 mg PO DAILY [facility] Last Admin: 06/26/17 09:30 Dose: Not Given Rosuvastatin Calcium (Crestor) 5 mg PO HS [facility] Last Admin: 06/25/17 21:12 Dose: 5 mg Physical Exam - Constitutional Appears: Non-toxic, No Acute Distress - Extremities Exam Extremities exam: Negative for: calf tenderness Additional comments: B/L lower ext exam: VASC- pedal pulses palpable, skin temp runs wnl bl, cap refill < 3 sec to all digits, 2+ pitting edema bl NEURO- gross and protective pedal sensation are diminished DERM- unstageable ulceration noted to plantar aspect L heel, eschar noted to cover wound, neg PTB, neg drainage, neg fluctuance, no wounds or ulcerations to R foot MSK- tenderness appreciated to palpation of plantar left heel wound, tenderness to dorsum of left foot, MMT is 5/5 in all directions - Neurological Exam Neurological exam: Alert, CN II-XII Intact, Oriented x3 - Psychiatric Exam Psychiatric exam: Normal Affect, Normal Mood Results - Vital Signs Recent Vital Signs: Last Vital Signs Temp 97.4 F L 06/26/17 12:00 Pulse 70 06/26/17 12:00 Resp 14 06/26/17 12:00 BP 95/36 L 06/26/17 12:00 Pulse Ox 98 06/26/17 12:00 - Labs Result Diagrams: 06/26/17 06:21 06/26/17 06:21 Labs: Laboratory Results - last 24 hr 06/25/17 06/25/17 06/26/17 16:07 21:25 06:21 WBC 4.9 RBC 3.66 L Hgb 10.0 L Hct 30.6 L MCV 83.6 MCH 27.3 MCHC 32.6 L RDW 15.7 H Plt Count 238 MPV 8.9 Neut % (Auto) 67.9 Lymph % (Auto) 24.0 [place] % (Auto) 5.0 Eos % (Auto) 2.4 Baso % (Auto) 0.7 Neut # (Auto) 3.3 Lymph # (Auto) 1.2 [place] # (Auto) 0.2 Eos # (Auto) 0.1 Baso # (Auto) 0.0 Sodium Potassium Chloride Carbon Dioxide Anion Gap BUN Creatinine Est GFR ( Amer) Est GFR (Non-Af Amer) POC Glucose (mg/dL) 97 98 Random Glucose Calcium Phosphorus Magnesium Total Bilirubin AST ALT Alkaline Phosphatase Total Protein Albumin Globulin Albumin/Globulin Ratio 06/26/17 06/26/17 06/26/17 06:21 07:21 11:12 WBC RBC Hgb Hct MCV MCH MCHC RDW Plt Count MPV Neut % (Auto) Lymph % (Auto) [place] % (Auto) Eos % (Auto) Baso % (Auto) Neut # (Auto) Lymph # (Auto) [place] # (Auto) Eos # (Auto) Baso # (Auto) Sodium 145 Potassium 4.4 Chloride 99 Carbon Dioxide 29 Anion Gap 21 H BUN 24 H Creatinine 1.4 H Est GFR ( Amer) 46 Est GFR (Non-Af Amer) 38 POC Glucose (mg/dL) 91 81 Random Glucose 114 H Calcium 8.8 Phosphorus 5.5 H Magnesium 1.7 Total Bilirubin 0.5 AST 17 ALT 13 Alkaline Phosphatase 106 Total Protein 6.4 Albumin 3.4 L Globulin 2.9 Albumin/Globulin Ratio 1.2 Assessment & Plan - Assessment and Plan (Free Text) Assessment: 61 yo female patient with ulceration to left foot 2/2 diabetic neuropathy Plan: Pt S&E at bedside with attending Dr. Harmon present chart labs and vitals reviewed: afebrile, no leukocytosis Left foot x-ray reviewed: neg for OM L heel wound dressed with xeroform, and dsd (bactroban ordered) offloading multipodus heel boots ordered, to be worn to feet b/l at all times while in bed. per medical team possible d/c tomorrow pending phys therapy eval will follow, stable per podiatry
--- NOTE | 2017-06-26 15:54 | RAD ---
PROCEDURE: Left Foot Radiographs. HISTORY: new onset pain to dorsal L foot COMPARISON: June FINDINGS: BONES: There is a bandage overlying the posterior heel soft tissues where prior history had suggested a heel wound. No cortical interruption or periosteal reaction seen here to suggest osteomyelitis. JOINTS: Normal. SOFT TISSUES: Diffuse soft tissue swelling. Posterior superficial soft tissues compatible with a wound with bandaging- correlate clinically OTHER FINDINGS: Atherosclerotic vascular calcifications present. IMPRESSION: Known clinical heel wound. No radiographic evidence of osteomyelitis
--- NOTE | 2017-06-26 19:26 | PN ---
DATE: SUBJECTIVE: The patient denies chest pain. She refused lower extremity vascular ultrasound. PHYSICAL EXAMINATION VITAL SIGNS: Blood pressure 95/36, heart rate 70, temperature 97.4, respirations 14. HEENT: Clear conjunctivae. CHEST: Minimal rhonchi. HEART: S1 and S2 regular. EXTREMITIES: 1+ pitting edema. Dressings were applied to her left heel for blackish discoloration of the left heel. LABORATORY DATA: Today's BUN and creatinine 24 and 1.2 respectively, glucose 114. ASSESSMENT: 1. Coronary artery disease, status post coronary artery bypass surgery. 2. Left heel cellulitis. 3. Congestive heart failure. 4. Hypothyroidism. RECOMMENDATIONS: Case was discussed with Dr. Bella. Continue aspirin 81 mg once a day, Crestor 5 mg once a day, subcutaneous heparin 5000 units every 8 hours. Discontinue IV Lasix in view of prerenal azotemia. Continue Toprol-XL at 50 mg once a day and Zestril 10 mg once a day. Podiatry consultation has been requested and the patient would be evaluated by Dr. Harmon. Benoit Fry MD
[2017-06-26] MEDS: Vancomycin 1 gm/NS 200 ml 1 GM/200 ML BAG IVPB SCH (21:00)
[2017-06-27] MEDS: Piperacill/Tazo 3.375gm in Dex 3.375 GM/50 ML BAG IVPB SCH (06:00)
[2017-06-27] MEDS: Levothyroxine 50 MCG TAB PO SCH (06:05)
[2017-06-27 06:10] LABS: BASO % 0.6 % (0.0-2.0); EOS # 0.2 K/uL (0.0-0.7); EOS % 2.9 % (0.0-4.0); HEMOGLOBIN 9.9 g/dL (11.0-16.0); LYMPH # 1.3 K/uL (1.0-4.3); LYMPH % 24.8 % (20.0-40.0); MEAN CELL VOLUME 82.9 fL (81.0-99.0); MEAN CORPUSCULAR HEMOGLOBIN 27.3 pg (27.0-31.0); MEAN PLATELET VOLUME 8.6 fL (7.2-11.7); MONO # 0.3 K/uL (0.0-0.8); MONO % 5.3 % (0.0-10.0); NEUT # 3.5 K/uL (1.8-7.0); NEUT % 66.4 % (50.0-75.0); NRBC % 0.1 % (0.0-2.0); RBC 3.61 Mil/uL (3.80-5.20); RED CELL DISTRIBUTION WIDTH 16.1 % (11.5-14.5); WHITE BLOOD COUNT 5.2 K/uL (4.8-10.8)
[2017-06-27 06:34] LABS: ALB/GLOB RATIO 1.2 (1.0-2.1); ALBUMIN 3.6 g/dL (3.5-5.0); CALCIUM 9.1 mg/dl (8.6-10.4)
--- NOTE | 2017-06-27 07:00 | CP.PCM.PN ---
Subjective - Date & Time of Evaluation Date of Evaluation: 06/27/17 Time of Evaluation: 05:30 - Subjective Subjective: Medicine progress note for Dr. Rivero Patient seen and examined. Objective - Vital Signs/Intake and Output Vital Signs (last 24 hours): Temp Pulse Resp BP Pulse Ox 97.2 F L 53 L 18 107/34 L 96 06/27/17 04:00 06/27/17 04:00 06/27/17 04:00 06/27/17 04:00 06/27/17 04:00 Intake and Output: 06/26/17 06/27/17 18:59 06:59 Intake Total 460 10 Output Total 800 Balance -340 10 - Medications Medications: Current Medications Acetaminophen (Tylenol 325mg Tab) 650 mg PO Q6 PRN PRN Reason: Pain, Mild (1-3) Last Admin: 06/26/17 23:55 Dose: 650 mg Albuterol/Ipratropium (Duoneb 3 Mg/0.5 Mg (3 Ml) Ud) 3 ml INH RQ6 PRN PRN Reason: Shortness of Breath Last Admin: 06/25/17 07:15 Dose: 3 ml Allopurinol (Zyloprim) 100 mg PO DAILY [facility] Last Admin: 06/26/17 09:28 Dose: 100 mg Aspirin (Aspirin Chewable) 81 mg PO DAILY [facility] Last Admin: 06/26/17 09:29 Dose: 81 mg Dextrose (Dextrose 50% Inj) 0 ml IV STAT PRN; Protocol PRN Reason: Hypoglycemia Protocol Dextrose (Glutose 15) 0 gm PO ONCE PRN; Protocol PRN Reason: Hypoglycemia Protocol Famotidine (Pepcid) 20 mg PO DAILY [facility] Last Admin: 06/26/17 09:28 Dose: 20 mg Gabapentin (Neurontin) 100 mg PO TID [facility] Last Admin: 06/26/17 18:00 Dose: 100 mg Glucagon (Glucagen Diagnostic Kit) 0 mg IM STAT PRN; Protocol PRN Reason: Hypoglycemia Protocol Heparin Sodium (Porcine) (Heparin) 5,000 units SC Q8 [facility] Last Admin: 06/27/17 06:06 Dose: 5,000 units Dextrose (Dextrose 5% In Water 1000 Ml) 1,000 mls @ 0 mls/hr IV .Q0M PRN; Protocol; Per Protocol PRN Reason: Hypoglycemia Protocol Piperacillin Sod/Tazobactam Sod (Zosyn 3.375 Gm Iv Premix) 3.375 gm in 50 mls @ 200 mls/hr IVPB Q8H JS PRN Reason: Protocol Last Admin: 06/27/17 06:00 Dose: 200 mls/hr Vancomycin/Sodium Chloride (Vancomycin 1 Gm/Ns 200 Ml) 1 gm in 200 mls @ 166.7 mls/hr IVPB Q24H JS PRN Reason: Protocol Stop: 06/29/17 21:31 Last Admin: 06/26/17 21:00 Dose: 166.7 mls/hr Insulin Human Regular (Novolin R) 0 unit SC ACHS JS PRN Reason: Protocol Last Admin: 06/26/17 22:00 Dose: Not Given Isosorbide Mononitrate (Imdur) 60 mg PO DAILY [facility] Last Admin: 06/26/17 09:28 Dose: 60 mg Levothyroxine Sodium (Synthroid) 50 mcg PO DAILY@0630 [facility] Last Admin: 06/27/17 06:05 Dose: 50 mcg Lisinopril (Zestril) 10 mg PO DAILY [facility] Last Admin: 06/26/17 09:28 Dose: 10 mg Metoprolol Succinate (Toprol Xl) 50 mg PO DAILY [facility] Last Admin: 06/26/17 09:30 Dose: Not Given Mupirocin (Bactroban Ointment) 0 gm TOP BID [facility] Rosuvastatin Calcium (Crestor) 5 mg PO HS [facility] Last Admin: 06/26/17 22:41 Dose: 5 mg - Labs Labs: 06/27/17 06:01 06/27/17 06:02 - Additional Findings Additional findings: - Constitutional Appears: No Acute Distress - Head Exam Head Exam: NORMAL INSPECTION - Eye Exam Eye Exam: EOMI, Normal appearance - ENT Exam ENT Exam: Mucous Membranes Moist - Respiratory Exam Respiratory Exam: Decreased breath sounds, NORMAL BREATHING PATTERN. absent: Rales, Rhonchi, Wheezes, Stridor - Cardiovascular Exam Cardiovascular Exam: REGULAR RHYTHM, RRR, +S1, +S2. absent: JVD - GI/Abdominal Exam GI & Abdominal Exam: Normal Bowel Sounds, Soft. absent: Tenderness Additional comments: Obese body habitus - Extremities Exam Extremities exam: Positive for: pedal edema (+2 bilateral lower extremity edema ), tenderness. Negative for: pedal pulses present (Right pedal pulse faint) - Neurological Exam Neurological exam: Alert, Oriented x3 - Psychiatric Exam Psychiatric exam: Normal Affect, Normal Mood - Skin Skin Exam: Dry, Erythema, Warm Additional comments: Bilateral legs - erythematous. Ulcer on the posterior heel of the left foot Assessment and Plan - Assessment and Plan (Free Text) Plan: 1.) Bilateral Lower Extremity Swelling Likely venous stasis component Lasix 20mg IV daily Patient refused venous and arterial doppler due to pain during the studies Fluid restriction 1000ml Holding PO lasix in favor of IV for now 2.) Left Lower Extremity Diabetic Ulcers Podiatry Consult: Dr. Harmon --> help appreciated Zosyn 3.375 q8h Vancomycin 1gm q24h Left foot xray shows calcaneal spur without evidence of osseus abnormalities 3.) Chest Tightness Negative Trop x3 4.) History of CHF ProBNP: 2990 ECHO (04/16/2017): EF 60-65% Cardio Consult: Dr. Fry --> help appreciated Continue home medications: * Aspirin 81mg daily * Furosemide 40mg daily * Lisinopril 10mg daily * Imdur 60 mg PO daily * Metoprolol succinate ER 50mg daily Repeat CXR with mild venous congestion 5.) History of Diabetes ISS Accuchecks Hypoglycemia protocol Hemoglobin A1c 6.4 6.) History of peripheral neuropathy Started Gabapentin 100mg tid 7.) HTN Lisinopril 10mg daily Metoprolol succinate ER 50mg daily Imdur 60 mg PO daily 8.) History of Asthma Duonebs prn 9.) HLD Crestor 5 mg HS lipid panel reveals elevated TGs 236, LDL 106, HDL 38 10.) Prophylaxis pepcid 20mg daily heparin sc PT eval and treat
[2017-06-27] MEDS: (Novolin R) Insulin Human Regular 100 units/ml vial SC SCH ×2 (07:33→11:39)
--- NOTE | 2017-06-27 08:35 | VASCLAB ---
PROCEDURE: Right Lower Extremity Venous Duplex Exam. HISTORY: LE swelling PRIORS: None. TECHNIQUE: Right common femoral, femoral, popliteal and posterior tibial, peroneal and great saphenous veins were evaluated. Flow was assessed with color Doppler, compressibility, assessment of phasic flow and augmentation response. Report prepared by DIONE Jenkins, RVT FINDINGS: RIGHT: 1. Common Femoral Vein: 1.1. Compressibility - Fully compressible: Thrombus - None: Flow - Phasic: Augmentation -Normal: Reflux - None. 2. Femoral Vein: 2.1. Compressibility - Fully compressible: Thrombus - None: Flow - Phasic: Augmentation -Normal: Reflux - None. 3. Popliteal Vein: 3.1. Compressibility - Fully compressible: Thrombus - None: Flow - Phasic: Augmentation -Normal: Reflux - None. 4. Posterior Tibial Vein: 4.1. Compressibility - Fully compressible: Thrombus - None: Flow - Phasic: Augmentation -Normal: Reflux - None. 5. Peroneal Vein: 5.1. Compressibility - Fully compressible: Thrombus - None: Flow - Phasic: Augmentation -Normal: Reflux - None. 6. Great Saphenous Vein: 6.1. Compressibility - Fully compressible: Thrombus -None: Flow - Phasic: Augmentation - Normal: Reflux - None. OTHER FINDINGS: Patient refused to have bilateral study. IMPRESSION: No evidence of deep or superficial vein thrombosis of the right lower extremity with excellent venous flow. Normal valve function noted of the right side. Normal venous flow noted in the left common femoral vein.
[2017-06-27] MEDS: Metoprolol Succinate 50 mg XL Tab PO SCH (09:29)
--- NOTE | 2017-06-27 12:02 | CP.PCM.DIS ---
<Toan Eubanks - Last Filed: 06/27/17 15:38> Provider - Provider Date of Admission: 06/24/17 17:57 Attending physician: Yuri Rivero DO Primary care physician: Dr. Valentine Consults: Cardiology: Dr. Fry Podiatry: Dr. Harmon Time Spent in preparation of Discharge (in minutes): 40 Diagnosis - Discharge Diagnosis (1) Bilateral lower extremity edema Status: Acute Priority: High (2) Diabetic ulcer of heel Status: Acute Priority: High (3) Chest tightness Status: Acute Priority: High (4) Diastolic congestive heart failure Status: Chronic Priority: Medium (5) History of diabetes mellitus Status: Chronic Priority: Low (6) Peripheral neuropathy Status: Chronic Priority: Low (7) History of hypertension Status: Chronic Priority: Low (8) History of hyperlipidemia Status: Chronic Priority: Low (9) History of asthma Status: Chronic Priority: Low Hospital Course - Lab Results Lab Results: Micro Results 06/25/17 04:20 Naris MRSA Culture (Admit) - Final MRSA NOT DETECTED Most Recent Lab Values WBC 5.2 K/uL (4.8-10.8) 06/27/17 06:01 RBC 3.61 Mil/uL (3.80-5.20) L 06/27/17 06:01 Hgb 9.9 g/dL (11.0-16.0) L 06/27/17 06:01 Hct 30.0 % (34.0-47.0) L 06/27/17 06:01 MCV 82.9 fL (81.0-99.0) 06/27/17 06:01 MCH 27.3 pg (27.0-31.0) 06/27/17 06:01 MCHC 33.0 g/dL (33.0-37.0) 06/27/17 06:01 RDW 16.1 % (11.5-14.5) H 06/27/17 06:01 Plt Count 223 K/uL (130-400) 06/27/17 06:01 MPV 8.6 fL (7.2-11.7) 06/27/17 06:01 Neut % (Auto) 66.4 % (50.0-75.0) 06/27/17 06:01 Lymph % (Auto) 24.8 % (20.0-40.0) 06/27/17 06:01 Lasalle % (Auto) 5.3 % (0.0-10.0) 06/27/17 06:01 Eos % (Auto) 2.9 % (0.0-4.0) 06/27/17 06:01 Baso % (Auto) 0.6 % (0.0-2.0) 06/27/17 06:01 Neut # (Auto) 3.5 K/uL (1.8-7.0) 06/27/17 06:01 Lymph # (Auto) 1.3 K/uL (1.0-4.3) 06/27/17 06:01 [place]alle # (Auto) 0.3 K/uL (0.0-0.8) 06/27/17 06:01 Eos # (Auto) 0.2 K/uL (0.0-0.7) 06/27/17 06:01 Baso # (Auto) 0.0 K/uL (0.0-0.2) 06/27/17 06:01 Sodium 140 mmol/L (132-148) 06/27/17 06:02 Potassium 4.2 mmol/L (3.6-5.2) 06/27/17 06:02 Chloride 102 mmol/L (98-107) 06/27/17 06:02 Carbon Dioxide 27 mmol/L (22-30) 06/27/17 06:02 Anion Gap 16 (10-20) 06/27/17 06:02 BUN 24 mg/dL (7-17) H 06/27/17 06:02 Creatinine 1.5 mg/dL (0.7-1.2) H 06/27/17 06:02 Est GFR ( Amer) 43 06/27/17 06:02 Est GFR (Non-Af Amer) 35 06/27/17 06:02 POC Glucose (mg/dL) 86 mg/dL (65-110) 06/27/17 11:27 Random Glucose 81 mg/dL (65-105) 06/27/17 06:02 Hemoglobin A1c 6.4 % (4.2-6.5) 06/25/17 06:34 Calcium 9.1 mg/dl (8.6-10.4) 06/27/17 06:02 Phosphorus 4.8 mg/dL (2.5-4.5) H 06/27/17 06:02 Magnesium 2.0 mg/dL (1.6-2.3) 06/27/17 06:02 Total Bilirubin 0.5 mg/dL (0.2-1.3) 06/27/17 06:02 AST 16 U/L (14-36) 06/27/17 06:02 ALT 8 U/L (9-52) L D 06/27/17 06:02 Alkaline Phosphatase 107 U/L (38-126) 06/27/17 06:02 Troponin I < 0.0120 ng/mL (0.00-0.120) 06/25/17 12:44 NT-Pro-B Natriuret Pep 2990 pg/mL (0-900) H 06/24/17 16:20 Total Protein 6.6 g/dL (6.3-8.3) 06/27/17 06:02 Albumin 3.6 g/dL (3.5-5.0) 06/27/17 06:02 Globulin 3.0 gm/dL (2.2-3.9) 06/27/17 06:02 Albumin/Globulin Ratio 1.2 (1.0-2.1) 06/27/17 06:02 Triglycerides 236 mg/dL (0-149) H D 06/25/17 06:34 Cholesterol 181 mg/dL (0-199) 06/25/17 06:34 LDL Cholesterol Direct 106 mg/dL (0-129) 06/25/17 06:34 HDL Cholesterol 38 mg/dL (30-70) 06/25/17 06:34 Free T4 1.56 ng/dL (0.78-2.19) 06/25/17 06:34 TSH 3rd Generation 2.79 mIU/L (0.46-4.68) 06/25/17 06:34 - Hospital Course Hospital Course: Initial Note: "61 year old female with past medical history of CHF, RI (2012), Diabetes Type II, asthma, peripheral neuropathy presents to the ER for lower extremity edema. Patient states the edema started about 3-4 days ago and she thought it would just go away on its own. She states her legs have been also red for a few weeks. Patient states bilateral lower extremities have been constantly painful. She states the pain feels like a squeezing pain about 7/10. She has taken Tramadol for her pain which she received from a previous ER admission which alleviated some of her pain. Patient states she has chronic left foot tingling and numbness since 12/2016. She also states she had chest tightness yesterday for a few hours and then it subsided she states that has been going on for a few months and she believes it is due to anxiety. She states she has not taken her medications for 3 days. Patient states she does not like to take her Lasix as it makes her go to the bathroom often. Patient denies shortness of breath and states she sleeps with 2 pillows and has not been able to lay flat since her RI in 2012. She denies chest pain, nausea, vomiting, fever, recent travel, sick contacts. diarrhea, constipation or abdominal pain." Hospital Course: Patient admitted for leg edema with a history of diastolic CHF. Patient has been noncompliant with her Lasix as she dislikes the diuretic properties of the medication. Patient refused venous and arterial dopplers mid-way through the studies, so they remain incomplete. Patient with left posterior heel ulcer. X- ray showed calcaneal spur without any evidence of osteomyelitis. For the ulcer, patient was on Vancomycin and Zosyn while inpatient. She was discharged with Augmentin 875-125 for 4 days. Patient was provided with off-loading footwear prior to discharge and instructed to follow up with her PMD. This is a summary of the patient's hospitalization. For more information, refer to the medical records. Discharge Exam - Additional Findings Additional findings: - Constitutional Appears: No Acute Distress - Head Exam Head Exam: NORMAL INSPECTION - Eye Exam Eye Exam: EOMI, Normal appearance - ENT Exam ENT Exam: Mucous Membranes Moist - Respiratory Exam Respiratory Exam: Decreased breath sounds, NORMAL BREATHING PATTERN. absent: Rales, Rhonchi, Wheezes, Stridor - Cardiovascular Exam Cardiovascular Exam: REGULAR RHYTHM, RRR, +S1, +S2. absent: JVD - GI/Abdominal Exam GI & Abdominal Exam: Normal Bowel Sounds, Soft. absent: Tenderness Additional comments: Obese body habitus - Extremities Exam Extremities exam: Positive for: pedal edema (bilateral lower extremity edema improved), tenderness. Negative for: pedal pulses present (Right pedal pulse faint) - Neurological Exam Neurological exam: Alert, Oriented x3 - Psychiatric Exam Psychiatric exam: Normal Affect, Normal Mood - Skin Skin Exam: Dry, Erythema, Warm Additional comments: Bilateral legs with improved erythema. Ulcer on the posterior heel of the left foot wrapped in dressing and offloading boot Discharge Plan - Discharge Medications Prescriptions: Albuterol HFA [Ventolin HFA 90 mcg/actuation (8 g)] 2 puff IH Q6H PRN #1 inhaler PRN Reason: Shortness Of Breath Allopurinol [Zyloprim] 100 mg PO DAILY #30 tab Amoxicillin/Clavulanate [Augmentin 875 MG-125 MG] 1 tab PO DAILY #4 tab Atorvastatin [Lipitor] 10 mg PO HS #30 tab Clopidogrel [Plavix] 75 mg PO DAILY #30 tab Furosemide [Lasix] 40 mg PO DAILY #30 tab Isosorbide Mononitrate [Imdur] 60 mg PO DAILY #30 tab Levothyroxine [Synthroid] 50 mcg PO DAILY #30 tab Lisinopril [Zestril] 10 mg PO DAILY #30 tab metFORMIN [glucOPHAGE] 500 mg PO BID #60 tab Metoprolol Succinate [Toprol XL] 50 mg PO DAILY #30 tab - Follow Up Plan Condition: STABLE Disposition: HOME/ ROUTINE Instructions: Heart Failure, Adult (DC), Cellulitis (Skin Infection), Adult (DC ) Additional Instructions: Please resume your home medications. Please follow up with your primary physician Dr. Valentine within 1 week of discharge. Please follow up with Dr. Fry at your next scheduled appointment. If there are any new or worsening symptoms, please go to the nearest emergency room. Referrals: Lula Valentine MD [Family Provider] - Benoit Fry MD [Staff Provider] - Clinical Quality Measures - CQM - Heart Failure Ejection Fraction: 40 % or Greater Left Ventricular Function to be assessed after discharge: Yes JESUS Inhibitor Prescribed: Yes Beta-Brown Prescribed: Metoprolol Succinate Angiotensin II Receptor Brown Prescribed: No Contraindication/Reason for not providing: JESUS instead AnticoagulationTherapy for Atrial Fibrillation/Atrialflutter: No Contraindication/Reason for not providing: not indicated Aldosterone Antagonist Prescribed: No Contraindication/Reason for not providing: not indicated Hydralazine Nitrate Prescribed: No Contraindication/Reason for not providing: not indicated Implantable Cardioverter Defibrillator Therapy: No Contraindication/Reason for not providing: not indicated Cardiac Resynchronization Therapy Prescribed: No Contraindication/Reason for not providing: not indicated Will be discharged to: Home Follow Up Date (must be within 7 days from discharge): 07/04/17 Follow Up Time: 09:00 <Yuri Rivero - Last Filed: 06/27/17 16:11> Provider - Provider Date of Admission: 06/24/17 17:57 Attending physician: Yuri Rivero DO Hospital Course - Lab Results Lab Results: Micro Results 06/25/17 04:20 Naris MRSA Culture (Admit) - Final MRSA NOT DETECTED Most Recent Lab Values WBC 5.2 K/uL (4.8-10.8) 06/27/17 06:01 RBC 3.61 Mil/uL (3.80-5.20) L 06/27/17 06:01 Hgb 9.9 g/dL (11.0-16.0) L 06/27/17 06:01 Hct 30.0 % (34.0-47.0) L 06/27/17 06:01 MCV 82.9 fL (81.0-99.0) 06/27/17 06:01 MCH 27.3 pg (27.0-31.0) 06/27/17 06:01 MCHC 33.0 g/dL (33.0-37.0) 06/27/17 06:01 RDW 16.1 % (11.5-14.5) H 06/27/17 06:01 Plt Count 223 K/uL (130-400) 06/27/17 06:01 MPV 8.6 fL (7.2-11.7) 06/27/17 06:01 Neut % (Auto) 66.4 % (50.0-75.0) 06/27/17 06:01 Lymph % (Auto) 24.8 % (20.0-40.0) 06/27/17 06:01 Lasalle % (Auto) 5.3 % (0.0-10.0) 06/27/17 06:01 Eos % (Auto) 2.9 % (0.0-4.0) 06/27/17 06:01 Baso % (Auto) 0.6 % (0.0-2.0) 06/27/17 06:01 Neut # (Auto) 3.5 K/uL (1.8-7.0) 06/27/17 06:01 Lymph # (Auto) 1.3 K/uL (1.0-4.3) 06/27/17 06:01 [place]alle # (Auto) 0.3 K/uL (0.0-0.8) 06/27/17 06:01 Eos # (Auto) 0.2 K/uL (0.0-0.7) 06/27/17 06:01 Baso # (Auto) 0.0 K/uL (0.0-0.2) 06/27/17 06:01 Sodium 140 mmol/L (132-148) 06/27/17 06:02 Potassium 4.2 mmol/L (3.6-5.2) 06/27/17 06:02 Chloride 102 mmol/L (98-107) 06/27/17 06:02 Carbon Dioxide 27 mmol/L (22-30) 06/27/17 06:02 Anion Gap 16 (10-20) 06/27/17 06:02 BUN 24 mg/dL (7-17) H 06/27/17 06:02 Creatinine 1.5 mg/dL (0.7-1.2) H 06/27/17 06:02 Est GFR ( Amer) 43 06/27/17 06:02 Est GFR (Non-Af Amer) 35 06/27/17 06:02 POC Glucose (mg/dL) 86 mg/dL (65-110) 06/27/17 11:27 Random Glucose 81 mg/dL (65-105) 06/27/17 06:02 Hemoglobin A1c 6.4 % (4.2-6.5) 06/25/17 06:34 Calcium 9.1 mg/dl (8.6-10.4) 06/27/17 06:02 Phosphorus 4.8 mg/dL (2.5-4.5) H 06/27/17 06:02 Magnesium 2.0 mg/dL (1.6-2.3) 06/27/17 06:02 Total Bilirubin 0.5 mg/dL (0.2-1.3) 06/27/17 06:02 AST 16 U/L (14-36) 04/04/18 06:02 ALT 8 U/L (9-52) L D 06/27/17 06:02 Alkaline Phosphatase 107 U/L (38-126) 06/27/17 06:02 Troponin I < 0.0120 ng/mL (0.00-0.120) 06/25/17 12:44 NT-Pro-B Natriuret Pep 2990 pg/mL (0-900) H 06/24/17 16:20 Total Protein 6.6 g/dL (6.3-8.3) 06/27/17 06:02 Albumin 3.6 g/dL (3.5-5.0) 06/27/17 06:02 Globulin 3.0 gm/dL (2.2-3.9) 06/27/17 06:02 Albumin/Globulin Ratio 1.2 (1.0-2.1) 06/27/17 06:02 Triglycerides 236 mg/dL (0-149) H D 06/25/17 06:34 Cholesterol 181 mg/dL (0-199) 06/25/17 06:34 LDL Cholesterol Direct 106 mg/dL (0-129) 06/25/17 06:34 HDL Cholesterol 38 mg/dL (30-70) 06/25/17 06:34 Free T4 1.56 ng/dL (0.78-2.19) 06/25/17 06:34 TSH 3rd Generation 2.79 mIU/L (0.46-4.68) 06/25/17 06:34 Attending/Attestation - Attestation I have personally seen and examined this patient.: Yes I have fully participated in the care of the patient.: Yes I have reviewed all pertinent clinical information, including history, physical exam and plan: Yes Notes (Text): 06/27/17 16:06 Medical attending: Patient was seen and examined by me. Agree with the above note by the resident The patient will be discharged today. Her breathing she said has been much better since comming here Hopefully she will take her medication for diurese as well as for diabetes control. Per review of medical records there have been several episodes of non compliance She is semi-homeless from what I understand, sometimes at a shleter sometimes at a friend's home thank you Yuri Rivero
[2017-06-27 12:31] VITALS: BP 94/36; PULSE 63; RESP 18; TEMP 98.2; O2SAT 99
== END 2017-06-27 13:30 | disposition home or self-care (01) | DRG 127 ==
LOC: C.ER 15:00 → C.9E 17:57 → C.9I 06-25 02:38
PROVIDERS: ADMIT Hospitalist; ATTEND Hospitalist
DX: I11.0 Hypertensive heart disease with heart failure (principal); J44.9 Chronic obstructive pulmonary disease, unspecified; L03.116 Cellulitis of left lower limb; L97.409 Non-pressure chronic ulcer of unspecified heel and midfoot with unspecified severity; E11.621 Type 2 diabetes mellitus with foot ulcer; E11.42 Type 2 diabetes mellitus with diabetic polyneuropathy; E11.622 Type 2 diabetes mellitus with other skin ulcer; L97.529 Non-pressure chronic ulcer of other part of left foot with unspecified severity; I50.32 Chronic diastolic (congestive) heart failure; I25.10 Atherosclerotic heart disease of native coronary artery without angina pectoris; F41.9 Anxiety disorder, unspecified; I25.2 Old myocardial infarction; E78.5 Hyperlipidemia, unspecified; E03.9 Hypothyroidism, unspecified; Z87.891 Personal history of nicotine dependence; Z91.14 Patient's other noncompliance with medication regimen; Z95.1 Presence of aortocoronary bypass graft

== ENCOUNTER 2017-07-13 21:52 | Inpatient (IN) | payer OTHER ==
[2017-07-13 21:52] VITALS: BMI 30.2
--- NOTE | 2017-07-13 22:25 | C.PDOC ---
History Of Present Illness Patient presents to ED with complaints of SOB associated with bilateral lower extremity edema that has worsened. Denies fever, chills, nausea or vomiting. Patient is speaking in 4-5 word sentences. Time Seen by Provider: 07/13/17 22:24 Chief Complaint (Nursing): Shortness Of Breath History Per: Patient History/Exam Limitations: no limitations Onset/Duration Of Symptoms: Hrs Current Symptoms Are (Timing): Still Present Initiating Event: Other Quality: Dull Current Respiratory Medications: See Home Med List Severity: Moderate Pain Scale Rating Of: 4 Associated Symptoms: Other (lower extremity edema). denies: Fever, Chills, Chest Pain Reports Recently: Seen In ED, Treated By A Physician, Hospitalized Recent travel outside of the [place]: No Additional History Per: Patient Past Medical History Reviewed: Historical Data, Nursing Documentation, Vital Signs Vital Signs: Last Vital Signs Temp 98 F 07/13/17 22:03 Pulse 74 07/14/17 00:03 Resp 16 07/14/17 00:03 BP 136/47 L 07/14/17 00:03 Pulse Ox 96 07/14/17 01:18 - Medical History PMH: Arthritis, Asthma, CAD, CHF, COPD, Diabetes, HTN, Hypercholesterolemia, Hyperlipidemia, Hypothyroidism, Peripheral Edema, Chronic Pain (leg pain) Surgical History: CABG, Hernia Repair, Tonsillectomy - [facility] CORONAR ARTERIOGR-2 CATH (11/19/13) DRAINAGE OF FACE SKIN, EXTERNAL APPROACH (02/13/17) INSERTION OF INFUSION DEV INTO SUP VENA CAVA, PERC APPROACH (10/02/16) LEFT HEART CARDIAC CATH (11/19/13) LT HEART ANGIOCARDIOGRAM (11/19/13) MEASURE CARDIAC SAMPL & PRESSURE, BILATERAL, PERC (03/11/16) PLAIN RADIOGRAPHY OF MULT COR ART USING L OSM CONTRAST (03/11/16) PLAIN RADIOGRAPHY OF R & L HEART USING L OSM CONTRAST (03/11/16) RELEASE PERITONEUM, OPEN APPROACH (12/27/16) SUPPLEMENT ABDOMINAL WALL WITH SYNTH SUB, OPEN APPROACH (12/27/16) Family History: States: No Known Family Hx - Social History Hx Tobacco Use: No Hx Alcohol Use: No Hx Substance Use: No - Immunization History Hx Tetanus Toxoid Vaccination: No Hx Influenza Vaccination: Yes Hx Pneumococcal Vaccination: No Review Of Systems Constitutional: Negative for: Fever, Chills Cardiovascular: Negative for: Chest Pain Respiratory: Positive for: Shortness of Breath. Negative for: Cough Gastrointestinal: Negative for: Nausea, Vomiting, Diarrhea Musculoskeletal: Positive for: Other (Lower extremity edema) Skin: Negative for: Rash Neurological: Negative for: Weakness, Numbness Psych: Negative for: Suicidal ideation Physical Exam - Physical Exam Appears: Non-toxic, No Acute Distress Skin: Warm, Dry Head: Normacephalic Eye(s): bilateral: Normal Inspection Oral Mucosa: Moist Neck: Trachea Midline, Supple Chest: Symmetrical, No Tenderness, Other (CABG scar ) Cardiovascular: Rhythm Regular Respiratory: No Decreased Breath Sounds, Rales (at bases), No Rhonchi, No Wheezing Gastrointestinal/Abdominal: Soft, No Tenderness, No Distention Back: Normal Inspection Extremity: Normal ROM, No Tenderness, Swelling (Lower extremity), Other ( Bilateral leg edema; mild increased erythema on left leg; poor vascular skin changes) Extremity: Bilateral: Atraumatic Pulses: Left Dorsalis Pedis: Normal, Right Dorsalis Pedis: Normal Neurological/Psych: Oriented x3 (awake and alert), Other (no focal deficits ) Gait: With Assistance ED Course And Treatment - Laboratory Results Result Diagrams: 07/13/17 22:41 07/13/17 22:41 ECG: Interpreted By Me, Viewed By Me ECG Rhythm: Sinus Rhythm (70), Nonspecific Changes O2 Sat by Pulse Oximetry: 96 (RA) Pulse Ox Interpretation: Normal - Radiology CXR: Interpreted by Me, Viewed By Me CXR Interpretation: Yes: Cardiomegaly, Other (cabg, chf). No: Infiltrates, Fracture Progress Note: Ordered BG, EKG, blood work, CXR, and urinalysis. Administered Lasix. Disposition Discussed With : Lula Valentine Comment: accepted the pt on her service and took over the care at 12:42 AM Doctor Will See Patient In The: Hospital Counseled Patient/Family Regarding: Studies Performed, Diagnosis - Disposition Disposition: HOSPITALIZED Disposition Time: 22:25 Condition: FAIR Forms: [facility] (Welsh) - POA Present On Arrival: Poor Glycemic Control - Clinical Impression Clinical Impression: Dyspnea, Chronic venous stasis dermatitis, CHF (congestive heart failure) - Scribe Statement The provider has reviewed the documentation as recorded by the Scriblucina Hernandez All medical record entries made by the Scribe were at my direction and personally dictated by me. I have reviewed the chart and agree that the record accurately reflects my personal performance of the history, physical exam, medical decision making, and the department course for this patient. I have also personally directed, reviewed, and agree with the discharge instructions and disposition. Decision To Admit - Pt Status Changed To: Hospital Disposition Of: Inpatient - Admit Certification Admit to Inpatient:: After my assessment, the patient will require hospitalization for at least two midnights. This is because of the severity of symptoms shown, intensity of services needed, and/or the medical risk in this patient being treated as an outpatient. - InPatient: Physician Admission Certification: I certify that this patient requires 2 or more midnights of care for the following reason:: After my assessment, the patient will require hospitalization for at least two midnights. This is because of the severity of symptoms shown, intensity of services needed, and/or the medical risk in this patient being treated as an outpatient. - . Bed Request Type: Telemetry Admitting Physician: Lula Valentine Patient Diagnosis: Dyspnea, Chronic venous stasis dermatitis, CHF (congestive heart failure)
[2017-07-13 22:43] LABS: BASO % 0.8 % (0.0-2.0); EOS # 0.1 K/uL (0.0-0.7); LYMPH # 1.2 K/uL (1.0-4.3); LYMPH % 22.2 % (20.0-40.0); MEAN CELL VOLUME 84.9 fL (81.0-99.0); MEAN CORPUSCULAR HEMOGLOBIN 28.8 pg (27.0-31.0); MEAN CORPUSCULAR HGB CONC 33.9 g/dL (33.0-37.0); MEAN PLATELET VOLUME 9.1 fL (7.2-11.7); MONO # 0.2 K/uL (0.0-0.8); MONO % 3.8 % (0.0-10.0); NEUT % 71.2 % (50.0-75.0); RBC 3.49 Mil/uL (3.80-5.20); RED CELL DISTRIBUTION WIDTH 16.4 % (11.5-14.5); WHITE BLOOD COUNT 5.6 K/uL (4.8-10.8)
[2017-07-13 22:51] LABS: PROTHROMBIN TIME 10.6 SECONDS (9.7-12.2)
[2017-07-13 22:58] LABS: ALB/GLOB RATIO 1.2 (1.0-2.1); ALBUMIN 3.8 g/dL (3.5-5.0); ALT/SGPT 21 U/L (9-52); AST/SGOT 18 U/L (14-36); BLOOD UREA NITROGEN 22 mg/dL (7-17); CALCIUM 9.1 mg/dl (8.6-10.4); GFR AFRICAN-AMERICAN > 60; GFR NON-AFRICAN AMERICAN > 60
[2017-07-13 23:08] LABS: B-TYPE NATRIURETIC PEPTIDE 1450 pg/mL (0-900)
[2017-07-13 23:32] LABS: SQUAMOUS EPITHIAL 1 /hpf (0-5); URINE BILIRUBIN NEGATIVE (NEGATIVE); URINE BLOOD NEGATIVE (NEGATIVE); URINE CLARITY Clear (Clear); URINE COLOR Yellow (YELLOW); URINE GLUCOSE (UA) NORMAL (Normal); URINE LEUKOCYTE ESTERASE TRACE Leu/uL (Negative); URINE PROTEIN NEGATIVE (NEGATIVE); URINE UROBILINOGEN NORMAL mg/dL (0.2-1.0)
[2017-07-14] MEDS ORDERED: Pneumococcal 23-Valent Vaccine IM ONE (05:44)
[2017-07-14] MEDS ORDERED: Albuterol HFA 90 mcg/actuation (8 g) INH PRN (05:45)
[2017-07-14] MEDS: Albuterol-Ipratrop 3 mg / 0.5 (3 ml) UD INH SCH ×3 (07:45→19:54)
--- NOTE | 2017-07-14 09:44 | RAD ---
PROCEDURE: CHEST RADIOGRAPH, 1 VIEW HISTORY: SOB COMPARISON: Portable chest 06/25/2017. FINDINGS: LUNGS: No acute infiltrate bilaterally. Linear atelectasis is seen at the mid left lung zone laterally. PLEURA: No pneumothorax or pleural fluid seen. CARDIOVASCULAR: Prominent appearing cardiac silhouette is stable however hilar vascular markings are somewhat increased suggestive of mild pulmonary vascular congestion. Post CABG changes are reiterated including median sternotomy. OSSEOUS STRUCTURES: No significant abnormalities. VISUALIZED UPPER ABDOMEN: Normal. OTHER FINDINGS: None. IMPRESSION: Mild pulmonary vascular congestion suggested. No acute infiltrate or pleural effusion bilaterally.
[2017-07-14] MEDS: MethylPREDNISolone 40 mg Vial IVP SCH ×2 (10:32→21:44)
[2017-07-14] MEDS: Enoxaparin 40 mg Syringe SC SCH (10:33)
[2017-07-14] MEDS: Metoprolol Succinate 50 mg XL Tab PO SCH ×2 (10:34→10:58)
[2017-07-15] MEDS: Albuterol-Ipratrop 3 mg / 0.5 (3 ml) UD INH SCH ×4 (01:09→20:27)
[2017-07-15] MEDS: Levothyroxine 50 MCG TAB PO SCH (06:18)
[2017-07-15] MEDS: Metoprolol Succinate 50 mg XL Tab PO SCH (10:00)
[2017-07-15] MEDS: MethylPREDNISolone 40 mg Vial IVP SCH ×3 (10:01→22:42)
[2017-07-15] MEDS: Enoxaparin 40 mg Syringe SC SCH (10:02)
[2017-07-15] MEDS ORDERED: cefTRIAXone IV 1 gm in Dextros 50 ML IVPB STA (11:45)
[2017-07-15 14:01] LABS: IRON 27 ug/dL (37-170)
[2017-07-15 14:11] LABS: % IRON SATURATION 9 (20-55); TOTAL IRON BINDING CAPACITY 311 ug/dL (250-450)
[2017-07-15 15:14] LABS: FOLATE 6.8 ng/mL
--- NOTE | 2017-07-15 18:45 | HP ---
The patient was seen and examined on the bedside 07/14/2017. CHIEF COMPLAINT: Shortness of breath, swelling of the legs. HISTORY OF PRESENT ILLNESS: Mrs. Taylor Angeles well known to me from multiple admissions, ER visits and office, came to emergency room complaining of shortness of breath associated by left lower extremity edema that has worsened. The patient denies fevers or chills. No nausea or vomiting. The patient is speaking 4 to 5 words sentence. No headache, no dizziness. No hematuria or hematochezia. Only has shortness of breath with swelling of the legs and still present when I saw the patient. No chest pain. Admitted the patient. PAST MEDICAL HISTORY: Arthritis, asthma, coronary artery disease, congestive heart failure, COPD, diabetes, hypertension, hypercholesterolemia, hyperlipidemia, hypothyroidism, peripheral edema and chronic pain. PAST SURGICAL HISTORY: CABG, hernia repair, tonsillectomy. FAMILY HISTORY: Father and mother, noncontributory. HABITS: Never smoke, no drugs, no ethanol. ALLERGIES: THE PATIENT IS NOT ALLERGIC WITH ANY MEDICATIONS. HOME MEDICATIONS: Reviewed by me. REVIEW OF SYSTEMS: The patient is seen and examined at bedside in her room on 07/14/2017. Looking comfortable. Still having little bit shortness of breath on exertion, swelling of the legs is improving, but still there. PHYSICAL EXAMINATION: VITAL SIGNS: Temperature 98, pulse 74, respiratory rate 14, blood pressure 136/47, pulse oximetry 96. HEENT: Head normocephalic, atraumatic. Eyes PERRLA. Extraocular muscles intact. Conjunctivae clear. Nose patent. Mucous membrane moist. NECK: Supple. No carotid bruit or thyromegaly. CHEST: Bilaterally symmetrical. HEART: S1 and S2 positive. LUNGS: Clear to auscultation. ABDOMEN: Soft. Bowel sounds positive. No organomegaly. EXTREMITIES: With trace edema. NEUROLOGICAL: The patient is awake and alert. Moving all 4 extremities. No focal deficits. LABORATORY DATA: White blood cell is 5.6, hemoglobin 10, hematocrit 28.6, platelets 176. Sodium 146, potassium 4.9, BUN 22, creatinine 0.9, glucose 113. ASSESSMENT AND PLAN: Mrs. Taylor Angeles is a 61 years old lady with anemia, renal insufficiency, hyperchloremia, hyperglycemia came with dyspnea, chronic venous stasis dermatitis, congestive heart failure, exacerbation of chronic obstructive pulmonary disease. The patient is noncompliant, multiple hospitalization with exacerbation of congestive heart failure and chronic obstructive pulmonary disease, arthritis, asthma, coronary artery disease, hypertension, hypercholesterolemia, hyperlipidemia, hypothyroidism, peripheral edema, history of coronary artery bypass graft, hernia repair, tonsillectomy. Readmitted the patient, started on Crestor, aspirin, metformin, isosorbide, home medications, Lovenox for deep vein thrombosis prophylaxis, Pepcid for gastrointestinal prophylaxis. Repeat labs. We will follow up. Lula Valentine MD
--- NOTE | 2017-07-15 19:07 | CP.PCM.CON ---
History of Present Illness - History of Present Illness History of Present Illness: Reason for consult: COPD 61 yo F with Pmhx of CHF, COPD and Asthma presented to the ED yesterday complaining of Shortness of breath associated by left lower extremity edema for 3-4 days that has worsened. At the time, pt denied fever, chills, chest pain, headache, dizziness, nausea or vomiting. PT complains of chest tightness that has been going on for a few months, mostly related to anxiety. Pt is noncompliant with lasix medication as it makes it have increased urinary frequency. Pt sleeps with two pillows since her [place] in 2012. PMHx: Arthritis, asthma, CAD, CHF, COPD, DM, HTN, peripheral edema PSH: CABG, hernia repair, tonsillectomy All: NKDA FMHX: none SH: no somking, alcohol or illicit drug use history Home Meds: Lisinopril 10 mg, Isosorbid 60mg, Furosemide 40mg, Metorpolol 50mg, Allopurinol 100mg, Aspirin 81mg, Atorvastatin 10mg, synthroid 50mcg, Metformin 500mg Assessment and Plan: 1. COPD -Saturating 95% on RA - CXR 07/13: no acute infiltrate b/l. Linear atelectasis at the mid left lung zone laterally. - WBC 07/13: 5.6 - nebulizer treatments - solu-medrol 40mg Q12 2. CHF - Echo 03/2017: EF 60-65, mild aortic regurg, mild mitral regur, mild tricuspid regurg - Continue Lisinopril - Lasix - Get new Echo for this admission Past Patient History - Infectious Disease Hx of Infectious Diseases: None - Tetanus Immunizations Tetanus Immunization: Unknown - Past Medical History & Family History Past Medical History?: Yes - Past Social History Smoking Status: Never Smoked - CARDIAC Hx Cardiac Disorders: Yes (CAD, CABG) Hx Congestive Heart Failure: Yes Hx Hypercholesterolemia: Yes Hx Hypertension: Yes - PULMONARY Hx Chronic Obstructive Pulmonary Disease (COPD): Yes - NEUROLOGICAL Hx Neurological Disorder: No - HEENT Hx HEENT Problems: No Other/Comment: Uses eyeglasses - RENAL Hx Chronic Kidney Disease: No - ENDOCRINE/METABOLIC Hx Hypothyroidism: Yes - HEMATOLOGICAL/ONCOLOGICAL Hx Anemia: No Hx Human Immunodeficiency Virus (HIV): No - INTEGUMENTARY Hx Dermatological Problems: Yes Other/Comment: Hx non-healing wound LLE - MUSCULOSKELETAL/RHEUMATOLOGICAL Hx Arthritis: Yes - GASTROINTESTINAL Hx Gastrointestinal Disorders: No - GENITOURINARY/GYNECOLOGICAL Hx Genitourinary Disorders: No - PSYCHIATRIC Hx Substance Use: No - SURGICAL HISTORY Hx Coronary Artery Bypass Graft: Yes Hx Tonsillectomy: Yes Other/Comment: no additional information given by patient - ANESTHESIA Hx Anesthesia: Yes Hx Anesthesia Reactions: No Hx Malignant Hyperthermia: No Meds Allergies/Adverse Reactions: Allergies Allergy/AdvReac Type Severity Reaction Status Date / Time No Known Allergies Allergy Verified 06/24/17 15:16 - Medications Medications: Current Medications Acetaminophen (Tylenol 325mg Tab) 650 mg PO Q4 PRN PRN Reason: Pain, moderate (4-7) Last Admin: 07/14/17 07:38 Dose: 650 mg Acetaminophen (Tylenol 325mg Tab) 650 mg PO Q4H PRN PRN Reason: pain fever Albuterol (Ventolin Hfa 90 Mcg/Actuation (8 G)) 2 puff INH RQ6 PRN PRN Reason: Shortness of Breath Albuterol/Ipratropium (Duoneb 3 Mg/0.5 Mg (3 Ml) Ud) 3 ml INH RQ6 [facility] Last Admin: 07/15/17 13:18 Dose: 3 ml Allopurinol (Zyloprim) 100 mg PO DAILY [facility] Last Admin: 07/15/17 10:01 Dose: 100 mg Aspirin (Ecotrin) 81 mg PO DAILY [facility] Last Admin: 07/15/17 10:01 Dose: 81 mg Clopidogrel Bisulfate (Plavix) 75 mg PO DAILY [facility] Last Admin: 07/15/17 10:01 Dose: 75 mg Enoxaparin Sodium (Lovenox) 40 mg SC DAILY [facility] Last Admin: 07/15/17 10:02 Dose: 40 mg Famotidine (Pepcid) 40 mg PO DAILY [facility] Last Admin: 07/15/17 10:01 Dose: 40 mg Furosemide (Lasix) 40 mg IVP Q12 [facility] Last Admin: 07/15/17 09:59 Dose: Not Given Gabapentin (Neurontin) 100 mg PO DAILY [facility] Last Admin: 07/15/17 10:01 Dose: 100 mg Isosorbide Mononitrate (Imdur) 60 mg PO DAILY [facility] Last Admin: 07/15/17 10:01 Dose: 60 mg Levothyroxine Sodium (Synthroid) 50 mcg PO DAILY@0630 [facility] Last Admin: 07/15/17 06:18 Dose: 50 mcg Lisinopril (Zestril) 10 mg PO DAILY [facility] Last Admin: 07/15/17 10:00 Dose: Not Given Metformin HCl (Glucophage) 500 mg PO BID [facility] Last Admin: 07/15/17 17:41 Dose: 500 mg Methylprednisolone (Solu-Medrol) 40 mg IVP Q12 [facility] Last Admin: 07/15/17 10:01 Dose: 40 mg Metoprolol Succinate (Toprol Xl) 50 mg PO DAILY [facility] Last Admin: 07/15/17 10:00 Dose: Not Given Mupirocin (Bactroban Ointment) 1 gm EXT BID PRN PRN Reason: Rash Ondansetron HCl (Zofran Inj) 4 mg IVP Q6 PRN PRN Reason: Nausea/Vomiting Rosuvastatin Calcium (Crestor) 5 mg PO HS [facility] Last Admin: 07/14/17 21:44 Dose: 5 mg Results - Vital Signs Recent Vital Signs: Last Vital Signs Temp 97.2 F L 07/15/17 15:39 Pulse 90 07/15/17 15:39 Resp 20 07/15/17 15:39 BP 108/56 L 07/15/17 15:39 Pulse Ox 100 07/15/17 15:39 - Labs Result Diagrams: 07/16/17 06:40 07/16/17 06:40 Labs: Laboratory Results - last 24 hr 07/14/17 07/15/17 07/15/17 20:58 06:00 11:29 POC Glucose (mg/dL) 219 H 249 H 149 H Hemoglobin A1c Iron TIBC % Saturation NT-Pro-B Natriuret Pep Triglycerides Cholesterol LDL Cholesterol Direct HDL Cholesterol Vitamin B12 Folate 07/15/17 07/15/17 07/15/17 13:31 13:31 13:31 POC Glucose (mg/dL) Hemoglobin A1c 6.3 Iron 27 L TIBC 311 % Saturation 9 L NT-Pro-B Natriuret Pep 3520 H Triglycerides 164 H D Cholesterol 195 LDL Cholesterol Direct 108 HDL Cholesterol 49 Vitamin B12 320 Folate 6.8 07/15/17 16:24 POC Glucose (mg/dL) 210 H Hemoglobin A1c Iron TIBC % Saturation NT-Pro-B Natriuret Pep Triglycerides Cholesterol LDL Cholesterol Direct HDL Cholesterol Vitamin B12 Folate
[2017-07-15 23:02] LABS: SQUAMOUS EPITHIAL 1 /hpf (0-5); URINE BACTERIA OCC (<OCC); URINE BILIRUBIN NEGATIVE (NEGATIVE); URINE BLOOD NEGATIVE (NEGATIVE); URINE CLARITY Clear (Clear); URINE COLOR Yellow (YELLOW); URINE GLUCOSE (UA) NORMAL (Normal); URINE LEUKOCYTE ESTERASE NEG Leu/uL (Negative); URINE PROTEIN NEGATIVE (NEGATIVE); URINE UROBILINOGEN NORMAL mg/dL (0.2-1.0)
[2017-07-16] MEDS: Albuterol-Ipratrop 3 mg / 0.5 (3 ml) UD INH SCH ×4 (01:09→19:30)
[2017-07-16] MEDS: Levothyroxine 50 MCG TAB PO SCH (05:53)
[2017-07-16 06:48] LABS: HEMOGLOBIN 9.6 g/dL (11.0-16.0); MEAN CELL VOLUME 83.6 fL (81.0-99.0); MEAN CORPUSCULAR HEMOGLOBIN 27.9 pg (27.0-31.0); MEAN CORPUSCULAR HGB CONC 33.4 g/dL (33.0-37.0); MEAN PLATELET VOLUME 9.5 fL (7.2-11.7); RBC 3.45 Mil/uL (3.80-5.20); WHITE BLOOD COUNT 9.2 K/uL (4.8-10.8)
[2017-07-16 08:14] LABS: BLOOD UREA NITROGEN 33 mg/dL (7-17); CALCIUM 9.2 mg/dl (8.6-10.4); GFR AFRICAN-AMERICAN > 60; GFR NON-AFRICAN AMERICAN 57
--- NOTE | 2017-07-16 10:10 | CP.PCM.CON ---
<Hilario Kearney - Last Filed: 07/16/17 16:20> History of Present Illness - History of Present Illness History of Present Illness: 61 year old female with past medical history of CHF, OK (2012), CABG, HTN, HLD, Diabetes Type II, asthma, peripheral neuropathy presented initially to the ER for lower extremity edema/pain worse on the left leg along with some shortness of breath. Patient stated the edema started about 3 days ago. Patient states bilateral lower extremities have been constantly painful. She states the pain felt like a squeezing pain initially 10/02. Patient states she has chronic left foot tingling and numbness since 12/2016 for which she takes neurontin. She states he shortness of breath has gotten worse like in the past because she has not been consistently taking her lasix. She states she is homeless and its hard for her to find a bathroom to urinate, so she skips doses of lasix. She states she has not taken her medications for 3 days. Since being in the hospital an taking her medications she states her shortness of breath has improved. She denies chest pain, chest tightness, nausea, vomiting, fever, chills, abdominal pain or any other complaints at this time. PMD: Dr. Valentine Cardio: Dr. 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 Denies alcohol or illicit drug use Review of Systems - Constitutional Constitutional: absent: Chills, Fever, Headache, Weakness - EENT Eyes: absent: Blurred Vision, Change in Vision - Cardiovascular Cardiovascular: Dyspnea, Edema, Pedal Edema. absent: Chest Pain, Lightheadedness Additional comments: improved dyspnea since admission - Respiratory Respiratory: Dyspnea. absent: Cough - Gastrointestinal Gastrointestinal: Nausea. absent: Abdominal Pain, Vomiting - Musculoskeletal Musculoskeletal: absent: Arthralgias Past Patient History - Infectious Disease Hx of Infectious Diseases: None - Tetanus Immunizations Tetanus Immunization: Unknown - Past Medical History & Family History Past Medical History?: Yes - Past Social History Smoking Status: Never Smoked - CARDIAC Hx Cardiac Disorders: Yes (CAD, CABG) Hx Congestive Heart Failure: Yes Hx Hypercholesterolemia: Yes Hx Hypertension: Yes - PULMONARY Hx Chronic Obstructive Pulmonary Disease (COPD): Yes - NEUROLOGICAL Hx Neurological Disorder: No - HEENT Hx HEENT Problems: No Other/Comment: Uses eyeglasses - RENAL Hx Chronic Kidney Disease: No - ENDOCRINE/METABOLIC Hx Hypothyroidism: Yes - HEMATOLOGICAL/ONCOLOGICAL Hx Anemia: No Hx Human Immunodeficiency Virus (HIV): No - INTEGUMENTARY Hx Dermatological Problems: Yes Other/Comment: Hx non-healing wound LLE - MUSCULOSKELETAL/RHEUMATOLOGICAL Hx Arthritis: Yes - GASTROINTESTINAL Hx Gastrointestinal Disorders: No - GENITOURINARY/GYNECOLOGICAL Hx Genitourinary Disorders: No - PSYCHIATRIC Hx Substance Use: No - SURGICAL HISTORY Hx Coronary Artery Bypass Graft: Yes Hx Tonsillectomy: Yes Other/Comment: no additional information given by patient - ANESTHESIA Hx Anesthesia: Yes Hx Anesthesia Reactions: No Hx Malignant Hyperthermia: No Meds Allergies/Adverse Reactions: Allergies Allergy/AdvReac Type Severity Reaction Status Date / Time No Known Allergies Allergy Verified 06/24/17 15:16 - Medications Medications: Current Medications Acetaminophen (Tylenol 325mg Tab) 650 mg PO Q4 PRN PRN Reason: Pain, moderate (4-7) Last Admin: 07/14/17 07:38 Dose: 650 mg Acetaminophen (Tylenol 325mg Tab) 650 mg PO Q4H PRN PRN Reason: pain fever Albuterol (Ventolin Hfa 90 Mcg/Actuation (8 G)) 2 puff INH RQ6 PRN PRN Reason: Shortness of Breath Albuterol/Ipratropium (Duoneb 3 Mg/0.5 Mg (3 Ml) Ud) 3 ml INH RQ6 [facility] Last Admin: 07/16/17 07:30 Dose: 3 ml Allopurinol (Zyloprim) 100 mg PO DAILY [facility] Last Admin: 07/15/17 10:01 Dose: 100 mg Aspirin (Ecotrin) 81 mg PO DAILY [facility] Last Admin: 07/15/17 10:01 Dose: 81 mg Clopidogrel Bisulfate (Plavix) 75 mg PO DAILY [facility] Last Admin: 07/15/17 10:01 Dose: 75 mg Enoxaparin Sodium (Lovenox) 40 mg SC DAILY [facility] Last Admin: 07/15/17 10:02 Dose: 40 mg Famotidine (Pepcid) 40 mg PO DAILY [facility] Last Admin: 07/15/17 10:01 Dose: 40 mg Furosemide (Lasix) 40 mg IVP Q12 [facility] Last Admin: 07/15/17 22:44 Dose: Not Given Gabapentin (Neurontin) 100 mg PO DAILY [facility] Last Admin: 07/15/17 10:01 Dose: 100 mg Isosorbide Mononitrate (Imdur) 60 mg PO DAILY [facility] Last Admin: 07/15/17 10:01 Dose: 60 mg Levothyroxine Sodium (Synthroid) 50 mcg PO DAILY@0630 [facility] Last Admin: 07/16/17 05:53 Dose: 50 mcg Lisinopril (Zestril) 10 mg PO DAILY [facility] Last Admin: 07/15/17 10:00 Dose: Not Given Metformin HCl (Glucophage) 500 mg PO BID [facility] Last Admin: 07/15/17 17:41 Dose: 500 mg Methylprednisolone (Solu-Medrol) 40 mg IVP Q12 [facility] Last Admin: 07/15/17 22:42 Dose: Not Given Metoprolol Succinate (Toprol Xl) 50 mg PO DAILY [facility] Last Admin: 07/15/17 10:00 Dose: Not Given Mupirocin (Bactroban Ointment) 1 gm EXT BID PRN PRN Reason: Rash Ondansetron HCl (Zofran Inj) 4 mg IVP Q6 PRN PRN Reason: Nausea/Vomiting Rosuvastatin Calcium (Crestor) 5 mg PO HS [facility] Last Admin: 07/15/17 21:55 Dose: 5 mg Physical Exam - Constitutional Appears: Well, Non-toxic, No Acute Distress - Head Exam Head Exam: ATRAUMATIC, NORMAL INSPECTION, NORMOCEPHALIC - Eye Exam Eye Exam: EOMI, Normal appearance - ENT Exam ENT Exam: Mucous Membranes Moist - Respiratory Exam Respiratory Exam: NORMAL BREATHING PATTERN - Cardiovascular Exam Cardiovascular Exam: REGULAR RHYTHM, +S1, +S2 - GI/Abdominal Exam GI & Abdominal Exam: Soft. absent: Distended - Extremities Exam Extremities exam: Positive for: full ROM, pedal edema, pedal pulses present. Negative for: calf tenderness Additional comments: dry skin, with excoriations - Neurological Exam Neurological exam: Alert, CN II-XII Intact, Oriented x3 Results - Vital Signs Recent Vital Signs: Last Vital Signs Temp 97.3 F L 07/16/17 07:10 Pulse 73 07/16/17 07:10 Resp 18 07/16/17 07:10 BP 105/65 07/16/17 07:10 Pulse Ox 97 07/16/17 07:10 - Labs Result Diagrams: 07/16/17 06:40 07/16/17 06:40 Labs: Laboratory Results - last 24 hr 07/15/17 07/15/17 07/15/17 11:29 13:31 13:31 WBC RBC Hgb Hct MCV MCH MCHC RDW Plt Count MPV Sodium Potassium Chloride Carbon Dioxide Anion Gap BUN Creatinine Est GFR ( Amer) Est GFR (Non-Af Amer) POC Glucose (mg/dL) 149 H Random Glucose Hemoglobin A1c 6.3 Calcium Iron TIBC % Saturation NT-Pro-B Natriuret Pep 3520 H Triglycerides 164 H D Cholesterol 195 LDL Cholesterol Direct 108 HDL Cholesterol 49 Vitamin B12 320 Folate 6.8 TSH 3rd Generation Urine Color Urine Clarity Urine pH Ur Specific Adams Urine Protein Urine Glucose (UA) Urine Ketones Urine Blood Urine Nitrate Urine Bilirubin Urine Urobilinogen Ur Leukocyte Esterase Urine WBC (Auto) Urine RBC (Auto) Ur Squamous Epith Cells Urine Bacteria 07/15/17 07/15/17 07/15/17 13:31 16:24 21:16 WBC RBC Hgb Hct MCV MCH MCHC RDW Plt Count MPV Sodium Potassium Chloride Carbon Dioxide Anion Gap BUN Creatinine Est GFR ( Amer) Est GFR (Non-Af Amer) POC Glucose (mg/dL) 210 H 107 Random Glucose Hemoglobin A1c Calcium Iron 27 L TIBC 311 % Saturation 9 L NT-Pro-B Natriuret Pep Triglycerides Cholesterol LDL Cholesterol Direct HDL Cholesterol Vitamin B12 Folate TSH 3rd Generation Urine Color Urine Clarity Urine pH Ur Specific Adams Urine Protein Urine Glucose (UA) Urine Ketones Urine Blood Urine Nitrate Urine Bilirubin Urine Urobilinogen Ur Leukocyte Esterase Urine WBC (Auto) Urine RBC (Auto) Ur Squamous Epith Cells Urine Bacteria 07/15/17 07/16/17 07/16/17 22:50 06:35 06:40 WBC 9.2 D RBC 3.45 L Hgb 9.6 L Hct 28.9 L MCV 83.6 MCH 27.9 MCHC 33.4 RDW 17.0 H Plt Count 207 MPV 9.5 Sodium Potassium Chloride Carbon Dioxide Anion Gap BUN Creatinine Est GFR ( Amer) Est GFR (Non-Af Amer) POC Glucose (mg/dL) 82 Random Glucose Hemoglobin A1c Calcium Iron TIBC % Saturation NT-Pro-B Natriuret Pep Triglycerides Cholesterol LDL Cholesterol Direct HDL Cholesterol Vitamin B12 Folate TSH 3rd Generation Urine Color Yellow Urine Clarity Clear Urine pH 5.0 Ur Specific Adams 1.018 Urine Protein Negative Urine Glucose (UA) Normal Urine Ketones Negative Urine Blood Negative Urine Nitrate Negative Urine Bilirubin Negative Urine Urobilinogen Normal Ur Leukocyte Esterase Neg Urine WBC (Auto) 1 Urine RBC (Auto) 1 Ur Squamous Epith Cells 1 Urine Bacteria Occ H 07/16/17 06:40 WBC RBC Hgb Hct MCV MCH MCHC RDW Plt Count MPV Sodium 142 Potassium 4.1 Chloride 105 Carbon Dioxide 25 Anion Gap 16 BUN 33 H Creatinine 1.0 Est GFR ( Amer) > 60 Est GFR (Non-Af Amer) 57 POC Glucose (mg/dL) Random Glucose 80 Hemoglobin A1c Calcium 9.2 Iron TIBC % Saturation NT-Pro-B Natriuret Pep Triglycerides Cholesterol LDL Cholesterol Direct HDL Cholesterol Vitamin B12 Folate TSH 3rd Generation 1.68 Urine Color Urine Clarity Urine pH Ur Specific Adams Urine Protein Urine Glucose (UA) Urine Ketones Urine Blood Urine Nitrate Urine Bilirubin Urine Urobilinogen Ur Leukocyte Esterase Urine WBC (Auto) Urine RBC (Auto) Ur Squamous Epith Cells Urine Bacteria Assessment & Plan - Assessment and Plan (Free Text) Assessment: 61 year old female with past medical history of CHF, [place] (2012), CABG, HTN, HLD, Diabetes Type II, asthma, peripheral neuropathy presented initially to the ER for lower extremity edema/pain worse on the left leg along with some shortness of breath. Patient has been non compliant with her diuretics because lack of access to bathroo due to being homeless. She is currently receiving diuretics and SOB has improved since admission. Plan: Plan - f/u venous doppler - f/u Arterial doppler - Fluid restriction 1000ml - continue diuresis - Podiatry Consult: Dr. Harmon, follow recs - Isosorbide MN ER 60mg daily - f/u Trop x3 - lopressor 50 - plavix - aspirin - lisinopril - ISS - Accuchecks - Hypoglycemia protocol - f/u A1c - Started Gabapentin 100mg tid - Duonebs prn - Crestor 10mg HS - pepcid 20mg daily - heparin sc <Johnie Adams - Last Filed: 07/16/17 21:59> Meds - Medications Medications: Current Medications Acetaminophen (Tylenol 325mg Tab) 650 mg PO Q4 PRN PRN Reason: Pain, moderate (4-7) Last Admin: 07/14/17 07:38 Dose: 650 mg Acetaminophen (Tylenol 325mg Tab) 650 mg PO Q4H PRN PRN Reason: pain fever Albuterol (Ventolin Hfa 90 Mcg/Actuation (8 G)) 2 puff INH RQ6 PRN PRN Reason: Shortness of Breath Albuterol/Ipratropium (Duoneb 3 Mg/0.5 Mg (3 Ml) Ud) 3 ml INH RQ6 [facility] Last Admin: 07/16/17 19:30 Dose: 3 ml Allopurinol (Zyloprim) 100 mg PO DAILY [facility] Last Admin: 07/16/17 10:14 Dose: 100 mg Aspirin (Ecotrin) 81 mg PO DAILY [facility] Last Admin: 07/16/17 10:14 Dose: 81 mg Ciprofloxacin (Cipro) 500 mg PO BID [facility] PRN Reason: Protocol Last Admin: 07/16/17 21:41 Dose: 500 mg Clopidogrel Bisulfate (Plavix) 75 mg PO DAILY [facility] Last Admin: 07/16/17 10:14 Dose: 75 mg Enoxaparin Sodium (Lovenox) 40 mg SC DAILY [facility] Last Admin: 07/16/17 10:15 Dose: 40 mg Famotidine (Pepcid) 40 mg PO DAILY [facility] Last Admin: 07/16/17 10:14 Dose: 40 mg Furosemide (Lasix) 40 mg IVP Q12 [facility] Last Admin: 07/16/17 21:42 Dose: Not Given Gabapentin (Neurontin) 100 mg PO DAILY [facility] Last Admin: 07/16/17 10:14 Dose: 100 mg Isosorbide Mononitrate (Imdur) 60 mg PO DAILY [facility] Last Admin: 07/16/17 10:15 Dose: 60 mg Lactic Acid (Lac-Hydrin 12% Lotion (225 G)) 0 gm EXT BID [facility] Last Admin: 07/16/17 17:33 Dose: 1 applic Levothyroxine Sodium (Synthroid) 50 mcg PO DAILY@0630 [facility] Last Admin: 07/16/17 05:53 Dose: 50 mcg Lisinopril (Zestril) 10 mg PO DAILY [facility] Last Admin: 07/16/17 10:16 Dose: 10 mg Metformin HCl (Glucophage) 500 mg PO BID [facility] Last Admin: 07/16/17 17:33 Dose: 500 mg Methylprednisolone (Solu-Medrol) 40 mg IVP Q12 [facility] Last Admin: 07/16/17 21:41 Dose: 40 mg Metoprolol Succinate (Toprol Xl) 50 mg PO DAILY [facility] Last Admin: 07/16/17 10:16 Dose: Not Given Mupirocin (Bactroban Ointment) 1 gm EXT BID PRN PRN Reason: Rash Rosuvastatin Calcium (Crestor) 5 mg PO HS [facility] Last Admin: 07/16/17 21:41 Dose: 5 mg Results - Vital Signs Recent Vital Signs: Last Vital Signs Temp 97.7 F 07/16/17 15:49 Pulse 67 07/16/17 21:43 Resp 20 07/16/17 21:43 BP 90/42 L 07/16/17 21:43 Pulse Ox 98 07/16/17 15:49 - Labs Result Diagrams: 07/16/17 06:40 07/16/17 06:40 Labs: Laboratory Results - last 24 hr 07/15/17 07/16/17 07/16/17 22:50 06:35 06:40 WBC 9.2 D RBC 3.45 L Hgb 9.6 L Hct 28.9 L MCV 83.6 MCH 27.9 MCHC 33.4 RDW 17.0 H Plt Count 207 MPV 9.5 Sodium Potassium Chloride Carbon Dioxide Anion Gap BUN Creatinine Est GFR ( Amer) Est GFR (Non-Af Amer) POC Glucose (mg/dL) 82 Random Glucose Calcium TSH 3rd Generation Urine Color Yellow Urine Clarity Clear Urine pH 5.0 Ur Specific Adams 1.018 Urine Protein Negative Urine Glucose (UA) Normal Urine Ketones Negative Urine Blood Negative Urine Nitrate Negative Urine Bilirubin Negative Urine Urobilinogen Normal Ur Leukocyte Esterase Neg Urine WBC (Auto) 1 Urine RBC (Auto) 1 Ur Squamous Epith Cells 1 Urine Bacteria Occ H 0407/16/17 07/16/17 06:40 10:59 16:13 WBC RBC Hgb Hct MCV MCH MCHC RDW Plt Count MPV Sodium 142 Potassium 4.1 Chloride 105 Carbon Dioxide 25 Anion Gap 16 BUN 33 H Creatinine 1.0 Est GFR ( Amer) > 60 Est GFR (Non-Af Amer) 57 POC Glucose (mg/dL) 119 H 181 H Random Glucose 80 Calcium 9.2 TSH 3rd Generation 1.68 Urine Color Urine Clarity Urine pH Ur Specific Adams Urine Protein Urine Glucose (UA) Urine Ketones Urine Blood Urine Nitrate Urine Bilirubin Urine Urobilinogen Ur Leukocyte Esterase Urine WBC (Auto) Urine RBC (Auto) Ur Squamous Epith Cells Urine Bacteria 07/16/17 21:43 WBC RBC Hgb Hct MCV MCH MCHC RDW Plt Count MPV Sodium Potassium Chloride Carbon Dioxide Anion Gap BUN Creatinine Est GFR ( Amer) Est GFR (Non-Af Amer) POC Glucose (mg/dL) 159 H Random Glucose Calcium TSH 3rd Generation Urine Color Urine Clarity Urine pH Ur Specific Adams Urine Protein Urine Glucose (UA) Urine Ketones Urine Blood Urine Nitrate Urine Bilirubin Urine Urobilinogen Ur Leukocyte Esterase Urine WBC (Auto) Urine RBC (Auto) Ur Squamous Epith Cells Urine Bacteria Assessment & Plan (1) CHF (congestive heart failure) Status: Acute (2) Chronic venous stasis dermatitis Status: Acute (3) Dyspnea Status: Acute (4) Abnormal EKG Status: Acute (5) Bilateral lower extremity edema Status: Acute Priority: High (6) CAD (coronary artery disease) of artery bypass graft Status: Acute (7) CHF, acute on chronic Status: Acute Priority: Medium Attending/Attestation - Attestation I have personally seen and examined this patient.: Yes I have fully participated in the care of the patient.: Yes I have reviewed all pertinent clinical information: Yes Notes (Text): 07/16/17 21:58 etiology of decompensation secondary to non-compliance due to social issues sx improving post diuretic therapy cont GDMT for CHF
[2017-07-16] MEDS: Enoxaparin 40 mg Syringe SC SCH (10:15)
[2017-07-16] MEDS: MethylPREDNISolone 40 mg Vial IVP SCH ×2 (10:15→21:41)
[2017-07-16] MEDS: Metoprolol Succinate 50 mg XL Tab PO SCH (10:16)
--- NOTE | 2017-07-16 16:27 | CP.PCM.PN ---
Subjective - Date & Time of Evaluation Date of Evaluation: 07/16/17 Time of Evaluation: 10:40 - Subjective Subjective: Patient seen and examined at bedside, resting comfortably in no acute distress. She was speaking in full sentences. She reports that she feels better today and has no complaints other than some right leg pain which is normal for her. Assessment and Plan: 1. COPD - Saturating 97% on RA - CXR 07/13: no acute infiltrate b/l. Linear atelectasis at the mid left lung zone laterally. - CBC 07/16: WBC 9.2 from 5.6, likely 2/2 steroids - c/w nebulizer treatments - c/w solu-medrol 40mg Q12 2. CHF - continue lisinopril 10 mg PO - continue lasix - continue toprol xl - consider cardio consult 3. Lower extremity cellulitis - afebrile - started cipro Objective - Vital Signs/Intake and Output Vital Signs (last 24 hours): Temp Pulse Resp BP Pulse Ox 97.7 F 80 20 145/79 98 07/16/17 15:49 07/16/17 15:49 07/16/17 15:49 07/16/17 15:49 07/16/17 15:49 Intake and Output: 07/16/17 07/16/17 06:59 18:59 Intake Total 240 Balance 240 - Medications Medications: Current Medications Acetaminophen (Tylenol 325mg Tab) 650 mg PO Q4 PRN PRN Reason: Pain, moderate (4-7) Last Admin: 07/14/17 07:38 Dose: 650 mg Acetaminophen (Tylenol 325mg Tab) 650 mg PO Q4H PRN PRN Reason: pain fever Albuterol (Ventolin Hfa 90 Mcg/Actuation (8 G)) 2 puff INH RQ6 PRN PRN Reason: Shortness of Breath Albuterol/Ipratropium (Duoneb 3 Mg/0.5 Mg (3 Ml) Ud) 3 ml INH RQ6 [facility] Last Admin: 07/16/17 07:30 Dose: 3 ml Allopurinol (Zyloprim) 100 mg PO DAILY [facility] Last Admin: 07/16/17 10:14 Dose: 100 mg Aspirin (Ecotrin) 81 mg PO DAILY [facility] Last Admin: 07/16/17 10:14 Dose: 81 mg Ciprofloxacin (Cipro) 500 mg PO BID [facility] PRN Reason: Protocol Last Admin: 07/16/17 12:41 Dose: 500 mg Clopidogrel Bisulfate (Plavix) 75 mg PO DAILY [facility] Last Admin: 07/16/17 10:14 Dose: 75 mg Enoxaparin Sodium (Lovenox) 40 mg SC DAILY [facility] Last Admin: 07/16/17 10:15 Dose: 40 mg Famotidine (Pepcid) 40 mg PO DAILY [facility] Last Admin: 07/16/17 10:14 Dose: 40 mg Furosemide (Lasix) 40 mg IVP Q12 [facility] Last Admin: 07/16/17 10:15 Dose: 40 mg Gabapentin (Neurontin) 100 mg PO DAILY [facility] Last Admin: 07/16/17 10:14 Dose: 100 mg Isosorbide Mononitrate (Imdur) 60 mg PO DAILY [facility] Last Admin: 07/16/17 10:15 Dose: 60 mg Lactic Acid (Lac-Hydrin 12% Lotion (225 G)) 0 gm EXT BID [facility] Levothyroxine Sodium (Synthroid) 50 mcg PO DAILY@0630 [facility] Last Admin: 07/16/17 05:53 Dose: 50 mcg Lisinopril (Zestril) 10 mg PO DAILY [facility] Last Admin: 07/16/17 10:16 Dose: 10 mg Metformin HCl (Glucophage) 500 mg PO BID [facility] Last Admin: 07/16/17 10:14 Dose: 500 mg Methylprednisolone (Solu-Medrol) 40 mg IVP Q12 [facility] Last Admin: 07/16/17 10:15 Dose: 40 mg Metoprolol Succinate (Toprol Xl) 50 mg PO DAILY [facility] Last Admin: 07/16/17 10:16 Dose: Not Given Mupirocin (Bactroban Ointment) 1 gm EXT BID PRN PRN Reason: Rash Rosuvastatin Calcium (Crestor) 5 mg PO HS [facility] Last Admin: 07/15/17 21:55 Dose: 5 mg - Labs Labs: 07/16/17 06:40 07/16/17 06:40 PT 10.6 SECONDS (9.7-12.2) 07/13/17 22:41 INR 1.0 07/13/17 22:41 APTT 28 SECONDS (21-34) 07/13/17 22:41
[2017-07-16] MEDS: Ammonium Lactate 12% Lotion (225 g) EXT SCH (17:33)
[2017-07-17] MEDS: Albuterol-Ipratrop 3 mg / 0.5 (3 ml) UD INH SCH ×4 (01:14→19:43)
[2017-07-17] MEDS: Levothyroxine 50 MCG TAB PO SCH (05:50)
--- NOTE | 2017-07-17 08:09 | PN ---
DATE: 07/16/2017 The patient was seen and examined on 07/16/2017 on the bedside. SUBJECTIVE: The patient was seen and examined at the bedside, looking comfortable. No nausea, vomiting, diarrhea, hematuria, hematochezia. No headache, no dizziness. No chest pain, no palpitations. No fever, no chills. Swelling of the leg is getting better. No hematuria, no hematochezia. PHYSICAL EXAMINATION: VITAL SIGNS: Temperature 97.7, pulse 80, blood pressure 145/79, respiratory rate 20. HEENT: Head normocephalic, atraumatic. Eyes: PERRLA. Extraocular movements intact. Conjunctivae clear. Nose patent. Mucous membranes moist. NECK: Supple. No carotid bruits. No JVD, thyromegaly. CHEST: Bilaterally symmetrical. HEART: S1 and S2 positive. LUNGS: Clear to auscultation. ABDOMEN: Soft. Bowel sounds positive. No organomegaly. EXTREMITIES: Trace edema. NEUROLOGIC: The patient is awake, alert. Moving all 4 extremities. No focal deficits. MEDICATIONS: Tylenol, Ventolin, allopurinol, Ecotrin, ciprofloxacin, Plavix, Lovenox, Pepcid, furosemide, Neurontin, Imdur, lactic acid, Zestril, Glucophage, Solu-Medrol, Toprol, Bactroban, Crestor. LABORATORY DATA: White blood cell 9.2, hemoglobin 9.6, hematocrit 28.9, platelets 207. Sodium 142, potassium 4.1, BUN 36, creatinine 1, glucose 80. ASSESSMENT AND PLAN: Mrs. Karthik Vazquez is a 61-year-old female with anemia with chronic obstructive pulmonary disease exacerbation. We will continue with present treatment, lower extremity cellulitis, started on Cipro. GI/DVT prophylaxis, repeat labs, and the patient is to see cardio . The patient is not complaining of sob, dermatitis of the legs, dyspnea, abnormal EKG. Lula Valentine MD [facility]
[2017-07-17] MEDS: Enoxaparin 40 mg Syringe SC SCH (10:52)
[2017-07-17] MEDS: Metoprolol Succinate 50 mg XL Tab PO SCH (10:53)
[2017-07-17] MEDS: Ammonium Lactate 12% Lotion (225 g) EXT SCH ×2 (10:54→17:49)
[2017-07-17] MEDS: MethylPREDNISolone 40 mg Vial IVP SCH ×2 (10:54→21:32)
--- NOTE | 2017-07-17 15:52 | CP.PCM.PN ---
<Hilario Kearney - Last Filed: 07/17/17 15:56> Subjective - Date & Time of Evaluation Date of Evaluation: 07/17/17 Time of Evaluation: 10:00 - Subjective Subjective: Patient seen and evaluated bedside. No acute issues overnight. Patient states her shortness of breath has improved and says she feels well. Leg pain is still present but decreased. Denies any other complaints at this time. Objective - Vital Signs/Intake and Output Vital Signs (last 24 hours): Temp Pulse Resp BP Pulse Ox 97.1 F L 72 20 107/66 96 07/17/17 15:00 07/17/17 15:00 07/17/17 15:00 07/17/17 15:00 07/17/17 15:00 Intake and Output: 07/17/17 07/17/17 06:59 18:59 Intake Total 490 Balance 490 - Medications Medications: Current Medications Acetaminophen (Tylenol 325mg Tab) 650 mg PO Q4 PRN PRN Reason: Pain, moderate (4-7) Last Admin: 07/14/17 07:38 Dose: 650 mg Acetaminophen (Tylenol 325mg Tab) 650 mg PO Q4H PRN PRN Reason: pain fever Albuterol (Ventolin Hfa 90 Mcg/Actuation (8 G)) 2 puff INH RQ6 PRN PRN Reason: Shortness of Breath Albuterol/Ipratropium (Duoneb 3 Mg/0.5 Mg (3 Ml) Ud) 3 ml INH RQ6 [facility] Last Admin: 07/17/17 13:06 Dose: 3 ml Allopurinol (Zyloprim) 100 mg PO DAILY [facility] Last Admin: 07/17/17 10:52 Dose: 100 mg Aspirin (Ecotrin) 81 mg PO DAILY [facility] Last Admin: 07/17/17 10:53 Dose: 81 mg Ciprofloxacin (Cipro) 500 mg PO BID [facility] PRN Reason: Protocol Last Admin: 07/17/17 10:53 Dose: 500 mg Clopidogrel Bisulfate (Plavix) 75 mg PO DAILY [facility] Last Admin: 07/17/17 10:53 Dose: 75 mg Enoxaparin Sodium (Lovenox) 40 mg SC DAILY [facility] Last Admin: 07/17/17 10:52 Dose: 40 mg Famotidine (Pepcid) 40 mg PO DAILY [facility] Last Admin: 04/24/18 10:53 Dose: 40 mg Furosemide (Lasix) 40 mg IVP Q12 [facility] Last Admin: 07/17/17 10:53 Dose: 40 mg Gabapentin (Neurontin) 100 mg PO DAILY [facility] Last Admin: 07/17/17 10:53 Dose: 100 mg Isosorbide Mononitrate (Imdur) 60 mg PO DAILY [facility] Last Admin: 07/17/17 10:52 Dose: 60 mg Lactic Acid (Lac-Hydrin 12% Lotion (225 G)) 0 gm EXT BID [facility] Last Admin: 07/17/17 10:54 Dose: 1 applic Levothyroxine Sodium (Synthroid) 50 mcg PO DAILY@0630 [facility] Last Admin: 07/17/17 05:50 Dose: 50 mcg Lisinopril (Zestril) 10 mg PO DAILY [facility] Last Admin: 07/17/17 10:53 Dose: 10 mg Metformin HCl (Glucophage) 500 mg PO BID [facility] Last Admin: 07/17/17 10:53 Dose: 500 mg Methylprednisolone (Solu-Medrol) 40 mg IVP Q12 [facility] Last Admin: 07/17/17 10:54 Dose: 40 mg Metoprolol Succinate (Toprol Xl) 50 mg PO DAILY [facility] Last Admin: 07/17/17 10:53 Dose: 50 mg Mupirocin (Bactroban Ointment) 1 gm EXT BID PRN PRN Reason: Rash Rosuvastatin Calcium (Crestor) 5 mg PO HS [facility] Last Admin: 07/16/17 21:41 Dose: 5 mg - Labs Labs: 07/16/17 06:40 07/16/17 06:40 PT 10.6 SECONDS (9.7-12.2) 07/13/17 22:41 INR 1.0 07/13/17 22:41 APTT 28 SECONDS (21-34) 07/13/17 22:41 - Constitutional Appears: Non-toxic, No Acute Distress - Head Exam Head Exam: ATRAUMATIC, NORMAL INSPECTION, NORMOCEPHALIC - Eye Exam Eye Exam: EOMI, Normal appearance, PERRL - ENT Exam ENT Exam: Mucous Membranes Moist - Neck Exam Neck Exam: Full ROM - Respiratory Exam Respiratory Exam: Clear to Ausculation Bilateral, NORMAL BREATHING PATTERN - Cardiovascular Exam Cardiovascular Exam: REGULAR RHYTHM, +S1, +S2 - GI/Abdominal Exam GI & Abdominal Exam: Soft, Normal Bowel Sounds - Neurological Exam Neurological Exam: Alert, Awake, Oriented x3 Assessment and Plan - Assessment and Plan (Free Text) Assessment: 61 year old female with past medical history of CHF, [place] (2012), CABG, HTN, HLD, Diabetes Type II, asthma, peripheral neuropathy presented initially to the ER for lower extremity edema/pain worse on the left leg along with some shortness of breath. Patient has been non compliant with her diuretics because lack of access to bathroom due to being homeless. She is currently receiving diuretics and SOB has improved since admission. Patient feels better today with improvement in shortness of breath. Plan: - continue diuresis - Podiatry Consult: Dr. Harmon, follow recs - Isosorbide MN ER 60mg daily - lopressor 50 - plavix - aspirin - lisinopril - ISS - Accuchecks - Hypoglycemia protocol - Gabapentin 100mg tid - Duonebs prn - Crestor 10mg HS - pepcid 20mg daily <Johnie Adams - Last Filed: 07/18/17 15:41> Objective - Vital Signs/Intake and Output Vital Signs (last 24 hours): Temp Pulse Resp BP Pulse Ox 97.7 F 67 18 155/78 H 98 07/18/17 08:22 07/18/17 12:20 07/18/17 08:22 07/18/17 10:01 07/18/17 08:22 Intake and Output: 07/18/17 07/18/17 06:59 18:59 Intake Total 250 Balance 250 - Medications Medications: Current Medications Acetaminophen (Tylenol 325mg Tab) 650 mg PO Q4 PRN PRN Reason: Pain, moderate (4-7) Last Admin: 07/14/17 07:38 Dose: 650 mg Acetaminophen (Tylenol 325mg Tab) 650 mg PO Q4H PRN PRN Reason: pain fever Albuterol (Ventolin Hfa 90 Mcg/Actuation (8 G)) 2 puff INH RQ6 PRN PRN Reason: Shortness of Breath Albuterol/Ipratropium (Duoneb 3 Mg/0.5 Mg (3 Ml) Ud) 3 ml INH RQ6 [facility] Last Admin: 07/18/17 13:07 Dose: 3 ml Allopurinol (Zyloprim) 100 mg PO DAILY [facility] Last Admin: 07/18/17 10:01 Dose: 100 mg Aspirin (Ecotrin) 81 mg PO DAILY [facility] Last Admin: 07/18/17 10:00 Dose: 81 mg Ciprofloxacin (Cipro) 500 mg PO BID [facility] PRN Reason: Protocol Last Admin: 07/18/17 10:01 Dose: 500 mg Clopidogrel Bisulfate (Plavix) 75 mg PO DAILY [facility] Last Admin: 07/18/17 10:00 Dose: 75 mg Enoxaparin Sodium (Lovenox) 40 mg SC DAILY [facility] Last Admin: 07/18/17 09:59 Dose: 40 mg Famotidine (Pepcid) 40 mg PO DAILY [facility] Last Admin: 07/18/17 10:01 Dose: 40 mg Furosemide (Lasix) 40 mg IVP Q12 [facility] Last Admin: 07/18/17 10:01 Dose: 40 mg Gabapentin (Neurontin) 100 mg PO DAILY [facility] Last Admin: 07/18/17 10:01 Dose: 100 mg Isosorbide Mononitrate (Imdur) 60 mg PO DAILY [facility] Last Admin: 07/18/17 10:00 Dose: 60 mg Lactic Acid (Lac-Hydrin 12% Lotion (225 G)) 0 gm EXT BID [facility] Last Admin: 07/18/17 10:26 Dose: 1 applic Levothyroxine Sodium (Synthroid) 50 mcg PO DAILY@0630 [facility] Last Admin: 07/18/17 06:34 Dose: 50 mcg Lisinopril (Zestril) 10 mg PO DAILY [facility] Last Admin: 07/18/17 10:01 Dose: 10 mg Metformin HCl (Glucophage) 500 mg PO BID [facility] Last Admin: 07/18/17 10:00 Dose: 500 mg Methylprednisolone (Solu-Medrol) 20 mg IVP Q12 [facility] Metoprolol Succinate (Toprol Xl) 50 mg PO DAILY [facility] Last Admin: 07/18/17 10:00 Dose: 50 mg Mupirocin (Bactroban Ointment) 1 gm EXT BID PRN PRN Reason: Rash Rosuvastatin Calcium (Crestor) 5 mg PO HS [facility] Last Admin: 07/16/17 21:41 Dose: 5 mg - Labs Labs: 07/16/17 06:40 07/16/17 06:40 PT 10.6 SECONDS (9.7-12.2) 07/13/17 22:41 INR 1.0 07/13/17 22:41 APTT 28 SECONDS (21-34) 07/13/17 22:41 Assessment and Plan (1) CHF (congestive heart failure) Status: Acute (2) Chronic venous stasis dermatitis Status: Acute (3) Dyspnea Status: Acute (4) Abnormal EKG Status: Acute (5) Bilateral lower extremity edema Status: Acute (6) CAD (coronary artery disease) of artery bypass graft Status: Acute (7) CHF, acute on chronic Status: Acute Attending/Attestation - Attestation I have personally seen and examined this patient.: Yes I have fully participated in the care of the patient.: Yes I have reviewed all pertinent clinical information, including history, physical exam and plan: Yes
--- NOTE | 2017-07-17 17:43 | CP.PCM.PN ---
Subjective - Date & Time of Evaluation Date of Evaluation: 07/17/17 Time of Evaluation: 11:20 - Subjective Subjective: Patient seen and examined at bedside, resting comfortably in no acute distress. She was speaking in full sentences. She reports that she feels better today and has no complaints. Her breathing has improved and the daily treatments have helped. She reports that her legs feel better and that overall she feels good. Assessment and Plan: 1. COPD - Saturating 97% on RA - c/w nebulizer treatments - c/w solu-medrol 40mg Q12 2. CHF - continue lisinopril 10 mg PO - continue lasix - continue toprol xl 3. Lower extremity cellulitis - afebrile - started cipro - lac hydrin Objective - Vital Signs/Intake and Output Vital Signs (last 24 hours): Temp Pulse Resp BP Pulse Ox 97.1 F L 64 20 107/66 96 07/17/17 15:00 07/17/17 16:49 07/17/17 15:00 07/17/17 15:00 07/17/17 15:00 Intake and Output: 07/17/17 07/17/17 06:59 18:59 Intake Total 490 Balance 490 - Medications Medications: Current Medications Acetaminophen (Tylenol 325mg Tab) 650 mg PO Q4 PRN PRN Reason: Pain, moderate (4-7) Last Admin: 07/14/17 07:38 Dose: 650 mg Acetaminophen (Tylenol 325mg Tab) 650 mg PO Q4H PRN PRN Reason: pain fever Albuterol (Ventolin Hfa 90 Mcg/Actuation (8 G)) 2 puff INH RQ6 PRN PRN Reason: Shortness of Breath Albuterol/Ipratropium (Duoneb 3 Mg/0.5 Mg (3 Ml) Ud) 3 ml INH RQ6 [facility] Last Admin: 07/17/17 13:06 Dose: 3 ml Allopurinol (Zyloprim) 100 mg PO DAILY [facility] Last Admin: 07/17/17 10:52 Dose: 100 mg Aspirin (Ecotrin) 81 mg PO DAILY [facility] Last Admin: 07/17/17 10:53 Dose: 81 mg Ciprofloxacin (Cipro) 500 mg PO BID [facility] PRN Reason: Protocol Last Admin: 07/17/17 10:53 Dose: 500 mg Clopidogrel Bisulfate (Plavix) 75 mg PO DAILY [facility] Last Admin: 07/17/17 10:53 Dose: 75 mg Enoxaparin Sodium (Lovenox) 40 mg SC DAILY [facility] Last Admin: 07/17/17 10:52 Dose: 40 mg Famotidine (Pepcid) 40 mg PO DAILY [facility] Last Admin: 07/17/17 10:53 Dose: 40 mg Furosemide (Lasix) 40 mg IVP Q12 [facility] Last Admin: 07/17/17 10:53 Dose: 40 mg Gabapentin (Neurontin) 100 mg PO DAILY [facility] Last Admin: 07/17/17 10:53 Dose: 100 mg Isosorbide Mononitrate (Imdur) 60 mg PO DAILY [facility] Last Admin: 07/17/17 10:52 Dose: 60 mg Lactic Acid (Lac-Hydrin 12% Lotion (225 G)) 0 gm EXT BID [facility] Last Admin: 07/17/17 10:54 Dose: 1 applic Levothyroxine Sodium (Synthroid) 50 mcg PO DAILY@0630 [facility] Last Admin: 07/17/17 05:50 Dose: 50 mcg Lisinopril (Zestril) 10 mg PO DAILY [facility] Last Admin: 07/17/17 10:53 Dose: 10 mg Metformin HCl (Glucophage) 500 mg PO BID [facility] Last Admin: 07/17/17 10:53 Dose: 500 mg Methylprednisolone (Solu-Medrol) 40 mg IVP Q12 [facility] Last Admin: 07/17/17 10:54 Dose: 40 mg Metoprolol Succinate (Toprol Xl) 50 mg PO DAILY [facility] Last Admin: 07/17/17 10:53 Dose: 50 mg Mupirocin (Bactroban Ointment) 1 gm EXT BID PRN PRN Reason: Rash Rosuvastatin Calcium (Crestor) 5 mg PO HS [facility] Last Admin: 07/16/17 21:41 Dose: 5 mg - Labs Labs: 07/16/17 06:40 07/16/17 06:40 PT 10.6 SECONDS (9.7-12.2) 07/13/17 22:41 INR 1.0 07/13/17 22:41 APTT 28 SECONDS (21-34) 07/13/17 22:41
--- NOTE | 2017-07-17 23:03 | CARD ---
APPROVED REPORT EKG Measurement Heart [id number] <Conclusion> Sinus rhythm with premature atrial complexes Minimal voltage criteria for LVH, may be normal variant Inferior infarct, age undetermined Abnormal ECG
[2017-07-18] MEDS: Albuterol-Ipratrop 3 mg / 0.5 (3 ml) UD INH SCH ×4 (01:16→19:33)
[2017-07-18] MEDS: Levothyroxine 50 MCG TAB PO SCH (06:34)
--- NOTE | 2017-07-18 06:58 | PN ---
DATE: 07/15/2017 SUBJECTIVE: The patient is 51-year-old female. The patient was seen and examined at the bedside on 07/15/2017 and looking comfortable, coughing, still having shortness of breath, but is getting little bit better; still has swelling of the leg, but little bit better. PHYSICAL EXAMINATION: VITAL SIGNS: Temperature 97.2, pulse 90, respiratory rate 20, blood pressure 108/56, pulse oximetry 100%. HEENT: Head: Normocephalic, atraumatic. Eyes: PERRLA. Extraocular movements intact. Conjunctivae clear. Nose patent. Mucous membranes moist. NECK: Supple. No carotid bruits. No JVD or thyromegaly. CHEST: Bilaterally symmetrical. HEART: S1 and S2 positive. LUNGS: Clear to auscultation. ABDOMEN: Soft. Bowel sounds positive. No organomegaly. EXTREMITIES: No edema, no cyanosis. NEUROLOGIC: The patient is awake, alert. Moving all 4 extremities. No focal deficits. LABS: White blood cells 9.2, hemoglobin 9.6, hematocrit 38.9, platelets 207. Sodium 142, potassium 4.1, BUN 33, creatinine 1, glucose 80. MEDICATIONS: Tylenol, albuterol, allopurinol, Ecotrin, Plavix, Lovenox, Pepcid, Lasix, Neurontin, Imdur, Synthroid, Zestril, Glucophage, Solu-Medrol, Toprol, and Bactroban. ASSESSMENT AND PLAN: The patient is a 51-year-old lady with chronic obstructive pulmonary disease, asthma exacerbation, noncompliant, gouty arthritis, coronary artery disease, hypertension, peripheral edema, history of coronary artery bypass graft, hernia repair, tonsillectomy, came into [facility] with shortness of breath, swelling of the leg, admitted, started home medications. Started on Lasix. Chest x-ray shows no acute infiltrates, bilateral linear atelectasis at mid left lower lung zone literally. White blood cells are within normal limits. Getting nebulizer treatments. Solu-Medrol, tapering dose. Echocardiogram done in 03/2017, ejection fraction of 60% to 65%. We will try to get new echocardiogram this admission as per Cardiology. Getting Lasix, out of bed physical therapy, gastrointestinal and deep venous thrombosis prophylaxis. Repeat labs. We will follow up. Lula Valentine MD [facility] # [id number] SHANA
[2017-07-18] MEDS: Enoxaparin 40 mg Syringe SC SCH (09:59)
[2017-07-18] MEDS: Metoprolol Succinate 50 mg XL Tab PO SCH (10:00)
[2017-07-18] MEDS: MethylPREDNISolone 40 mg Vial IVP SCH ×2 (10:02→21:34)
[2017-07-18] MEDS: Ammonium Lactate 12% Lotion (225 g) EXT SCH ×2 (10:26→17:38)
--- NOTE | 2017-07-18 11:24 | CP.PCM.PN ---
<Hilario Kearney - Last Filed: 07/18/17 12:11> Subjective - Date & Time of Evaluation Date of Evaluation: 07/18/17 Time of Evaluation: 09:00 - Subjective Subjective: Patient seen and evaluated bedside. No acute issues overnight. Patient states shortness of breath has resolved, she states she has been walking around without issues. She states leg pain still present but slightly improving. No additional complaints at this time. Objective - Vital Signs/Intake and Output Vital Signs (last 24 hours): Temp Pulse Resp BP Pulse Ox 97.7 F 56 L 18 155/78 H 98 07/18/17 08:22 07/18/17 08:22 07/18/17 08:22 07/18/17 10:01 07/18/17 08:22 Intake and Output: 07/18/17 07/18/17 06:59 18:59 Intake Total 250 Balance 250 - Medications Medications: Current Medications Acetaminophen (Tylenol 325mg Tab) 650 mg PO Q4 PRN PRN Reason: Pain, moderate (4-7) Last Admin: 07/14/17 07:38 Dose: 650 mg Acetaminophen (Tylenol 325mg Tab) 650 mg PO Q4H PRN PRN Reason: pain fever Albuterol (Ventolin Hfa 90 Mcg/Actuation (8 G)) 2 puff INH RQ6 PRN PRN Reason: Shortness of Breath Albuterol/Ipratropium (Duoneb 3 Mg/0.5 Mg (3 Ml) Ud) 3 ml INH RQ6 [facility] Last Admin: 07/18/17 07:29 Dose: 3 ml Allopurinol (Zyloprim) 100 mg PO DAILY [facility] Last Admin: 07/18/17 10:01 Dose: 100 mg Aspirin (Ecotrin) 81 mg PO DAILY [facility] Last Admin: 07/18/17 10:00 Dose: 81 mg Ciprofloxacin (Cipro) 500 mg PO BID [facility] PRN Reason: Protocol Last Admin: 07/18/17 10:01 Dose: 500 mg Clopidogrel Bisulfate (Plavix) 75 mg PO DAILY [facility] Last Admin: 07/18/17 10:00 Dose: 75 mg Enoxaparin Sodium (Lovenox) 40 mg SC DAILY [facility] Last Admin: 07/18/17 09:59 Dose: 40 mg Famotidine (Pepcid) 40 mg PO DAILY [facility] Last Admin: 07/18/17 10:01 Dose: 40 mg Furosemide (Lasix) 40 mg IVP Q12 [facility] Last Admin: 07/18/17 10:01 Dose: 40 mg Gabapentin (Neurontin) 100 mg PO DAILY [facility] Last Admin: 07/18/17 10:01 Dose: 100 mg Isosorbide Mononitrate (Imdur) 60 mg PO DAILY [facility] Last Admin: 07/18/17 10:00 Dose: 60 mg Lactic Acid (Lac-Hydrin 12% Lotion (225 G)) 0 gm EXT BID [facility] Last Admin: 07/18/17 10:26 Dose: 1 applic Levothyroxine Sodium (Synthroid) 50 mcg PO DAILY@0630 [facility] Last Admin: 07/18/17 06:34 Dose: 50 mcg Lisinopril (Zestril) 10 mg PO DAILY [facility] Last Admin: 07/18/17 10:01 Dose: 10 mg Metformin HCl (Glucophage) 500 mg PO BID [facility] Last Admin: 07/18/17 10:00 Dose: 500 mg Methylprednisolone (Solu-Medrol) 20 mg IVP Q12 [facility] Metoprolol Succinate (Toprol Xl) 50 mg PO DAILY [facility] Last Admin: 07/18/17 10:00 Dose: 50 mg Mupirocin (Bactroban Ointment) 1 gm EXT BID PRN PRN Reason: Rash Rosuvastatin Calcium (Crestor) 5 mg PO HS [facility] Last Admin: 07/16/17 21:41 Dose: 5 mg - Labs Labs: 07/16/17 06:40 07/16/17 06:40 PT 10.6 SECONDS (9.7-12.2) 07/13/17 22:41 INR 1.0 07/13/17 22:41 APTT 28 SECONDS (21-34) 07/13/17 22:41 - Constitutional Appears: Well, Non-toxic, No Acute Distress - Head Exam Head Exam: ATRAUMATIC, NORMAL INSPECTION, NORMOCEPHALIC - Eye Exam Eye Exam: EOMI, Normal appearance - ENT Exam ENT Exam: Mucous Membranes Moist - Respiratory Exam Respiratory Exam: Clear to Ausculation Bilateral, NORMAL BREATHING PATTERN - Cardiovascular Exam Cardiovascular Exam: REGULAR RHYTHM - Extremities Exam Extremities Exam: Tenderness. absent: Calf Tenderness - Neurological Exam Neurological Exam: Alert, Awake, Oriented x3 Assessment and Plan - Assessment and Plan (Free Text) Assessment: 61 year old female with past medical history of CHF, [place] (2012), CABG, HTN, HLD, Diabetes Type II, asthma, peripheral neuropathy presented initially to the ER for lower extremity edema/pain worse on the left leg along with some shortness of breath. Patient has been non compliant with her diuretics because lack of access to bathroom due to being homeless. She is currently receiving diuretics and SOB has improved since admission. Patient feels much improved today with improvement in shortness of breath. Plan: - continue furosemide - Podiatry Consult: Dr. Harmon, follow recs - Isosorbide MN ER 60mg daily - lopressor 50 - plavix - aspirin - lisinopril - ISS - Accuchecks - Hypoglycemia protocol - Gabapentin 100mg tid - Duonebs prn - Crestor 10mg HS - pepcid 20mg daily - steroids <Johnie Adams - Last Filed: 07/18/17 15:41> Objective - Vital Signs/Intake and Output Vital Signs (last 24 hours): Temp Pulse Resp BP Pulse Ox 97.7 F 67 18 155/78 H 98 07/18/17 08:22 07/18/17 12:20 07/18/17 08:22 07/18/17 10:01 07/18/17 08:22 Intake and Output: 07/18/17 07/18/17 06:59 18:59 Intake Total 250 Balance 250 - Medications Medications: Current Medications Acetaminophen (Tylenol 325mg Tab) 650 mg PO Q4 PRN PRN Reason: Pain, moderate (4-7) Last Admin: 07/14/17 07:38 Dose: 650 mg Acetaminophen (Tylenol 325mg Tab) 650 mg PO Q4H PRN PRN Reason: pain fever Albuterol (Ventolin Hfa 90 Mcg/Actuation (8 G)) 2 puff INH RQ6 PRN PRN Reason: Shortness of Breath Albuterol/Ipratropium (Duoneb 3 Mg/0.5 Mg (3 Ml) Ud) 3 ml INH RQ6 [facility] Last Admin: 07/18/17 13:07 Dose: 3 ml Allopurinol (Zyloprim) 100 mg PO DAILY [facility] Last Admin: 07/18/17 10:01 Dose: 100 mg Aspirin (Ecotrin) 81 mg PO DAILY [facility] Last Admin: 07/18/17 10:00 Dose: 81 mg Ciprofloxacin (Cipro) 500 mg PO BID [facility] PRN Reason: Protocol Last Admin: 07/18/17 10:01 Dose: 500 mg Clopidogrel Bisulfate (Plavix) 75 mg PO DAILY [facility] Last Admin: 07/18/17 10:00 Dose: 75 mg Enoxaparin Sodium (Lovenox) 40 mg SC DAILY [facility] Last Admin: 07/18/17 09:59 Dose: 40 mg Famotidine (Pepcid) 40 mg PO DAILY [facility] Last Admin: 07/18/17 10:01 Dose: 40 mg Furosemide (Lasix) 40 mg IVP Q12 [facility] Last Admin: 07/18/17 10:01 Dose: 40 mg Gabapentin (Neurontin) 100 mg PO DAILY [facility] Last Admin: 07/18/17 10:01 Dose: 100 mg Isosorbide Mononitrate (Imdur) 60 mg PO DAILY [facility] Last Admin: 07/18/17 10:00 Dose: 60 mg Lactic Acid (Lac-Hydrin 12% Lotion (225 G)) 0 gm EXT BID [facility] Last Admin: 07/18/17 10:26 Dose: 1 applic Levothyroxine Sodium (Synthroid) 50 mcg PO DAILY@0630 [facility] Last Admin: 07/18/17 06:34 Dose: 50 mcg Lisinopril (Zestril) 10 mg PO DAILY [facility] Last Admin: 07/18/17 10:01 Dose: 10 mg Metformin HCl (Glucophage) 500 mg PO BID [facility] Last Admin: 07/18/17 10:00 Dose: 500 mg Methylprednisolone (Solu-Medrol) 20 mg IVP Q12 [facility] Metoprolol Succinate (Toprol Xl) 50 mg PO DAILY [facility] Last Admin: 07/18/17 10:00 Dose: 50 mg Mupirocin (Bactroban Ointment) 1 gm EXT BID PRN PRN Reason: Rash Rosuvastatin Calcium (Crestor) 5 mg PO HS [facility] Last Admin: 07/16/17 21:41 Dose: 5 mg - Labs Labs: 07/16/17 06:40 07/16/17 06:40 PT 10.6 SECONDS (9.7-12.2) 07/13/17 22:41 INR 1.0 07/13/17 22:41 APTT 28 SECONDS (21-34) 07/13/17 22:41 Assessment and Plan (1) CHF (congestive heart failure) Status: Acute (2) Chronic venous stasis dermatitis Status: Acute (3) Dyspnea Status: Acute (4) Abnormal EKG Status: Acute (5) Bilateral lower extremity edema Status: Acute (6) CAD (coronary artery disease) of artery bypass graft Status: Acute (7) CHF, acute on chronic Status: Acute Attending/Attestation - Attestation I have personally seen and examined this patient.: Yes I have fully participated in the care of the patient.: Yes I have reviewed all pertinent clinical information, including history, physical exam and plan: Yes Notes (Text): 07/18/17 15:41 compensated and euvolemic cont GDMT for CHF/CAD outpt f/u
--- NOTE | 2017-07-18 12:24 | PN ---
DATE: 07/17/2017. SUBJECTIVE: The patient is 61-year-old female. The patient was seen and examined at the bedside on 07/17/2017 and looking comfortable. No nausea, vomiting, diarrhea. Cough is better, shortness of breath is better. No hematuria or hematochezia. Swelling of the leg is better and no headache, no dizziness. No fever, no chills. Resting comfortably, not in acute distress, speaking full sentences. improved with treatment. Legs feel swelling is better. PHYSICAL EXAMINATION: VITAL SIGNS: Temperature 97.1, pulse 64, respiratory rate 20, blood pressure 107/66, pulse oximetry 96%. HEENT: Head normocephalic, atraumatic. Eyes, PERRLA. Extraocular muscles intact. Conjunctivae clear. Nose patent. Mucous membranes moist. NECK: Supple. No carotid bruits. No JVD or thyromegaly. CHEST: Bilaterally symmetrical. HEART: S1 and S2 positive. LUNGS: Trace wheezing bilaterally. ABDOMEN: Soft. Bowel sounds present. No organomegaly. EXTREMITIES: Trace edema of lower extremities but improved a lot. NEUROLOGIC: The patient is awake, alert. Moving all 4 extremities. No focal deficits. MEDICATIONS: Tylenol, albuterol, DuoNeb, allopurinol, aspirin, ciprofloxacin, Lovenox, Pepcid, Lasix, Neurontin, Imdur, Lac-Hydrin, Zestril, Glucophage, Solu-Medrol we will taper down, Toprol, Crestor. LABORATORY DATA: White blood cells 9.2, hemoglobin 9.6, hematocrit 28.9, platelets 207. Sodium 142, potassium 4.1, BUN 33, creatinine 1, glucose 80. ASSESSMENT AND PLAN: Ms. Taylor Angeles is a 61 years old lady with anemia, increase BUN, came with exacerbation of chronic obstructive pulmonary disease, now saturating 97% on room air, getting nebulizer treatments Solu-Medrol 40 mg, will taper down today; congestive heart failure, getting lisinopril, continue Lasix, Toprol; lower extremities cellulitis, afebrile, getting Cipro, Lac-Hydrin; deconditioned, need rehab. Repeat labs. We will follow up. Lula Valentine MD [facility] # [id number]
--- NOTE | 2017-07-18 15:13 | CP.PCM.PN ---
Subjective - Date & Time of Evaluation Date of Evaluation: 07/18/17 Time of Evaluation: 11:00 - Subjective Subjective: Patient seen and examined at bedside, resting comfortably in no acute distress. She reports that she feels better today and has no complaints. She is clear for discharge from a pulmonary standpoint. She states that she is awaiting a decision on transfer to a rehab for her leg. Assessment and Plan: 1. COPD - Saturating 96-98% on RA - CXR 07/13: no acute infiltrate b/l. Linear atelectasis at the mid left lung zone laterally. - CBC 07/16: WBC 9.2 from 5.6, likely 2/2 steroids - c/w nebulizer treatments - c/w solu-medrol 40mg Q12 2. CHF - continue lisinopril 10 mg PO - continue lasix - continue toprol xl 3. Lower extremity cellulitis Objective - Vital Signs/Intake and Output Vital Signs (last 24 hours): Temp Pulse Resp BP Pulse Ox 97.7 F 67 18 155/78 H 98 07/18/17 08:22 07/18/17 12:20 07/18/17 08:22 07/18/17 10:01 07/18/17 08:22 Intake and Output: 07/18/17 07/18/17 06:59 18:59 Intake Total 250 Balance 250 - Medications Medications: Current Medications Acetaminophen (Tylenol 325mg Tab) 650 mg PO Q4 PRN PRN Reason: Pain, moderate (4-7) Last Admin: 07/14/17 07:38 Dose: 650 mg Acetaminophen (Tylenol 325mg Tab) 650 mg PO Q4H PRN PRN Reason: pain fever Albuterol (Ventolin Hfa 90 Mcg/Actuation (8 G)) 2 puff INH RQ6 PRN PRN Reason: Shortness of Breath Albuterol/Ipratropium (Duoneb 3 Mg/0.5 Mg (3 Ml) Ud) 3 ml INH RQ6 [facility] Last Admin: 07/18/17 13:07 Dose: 3 ml Allopurinol (Zyloprim) 100 mg PO DAILY [facility] Last Admin: 07/18/17 10:01 Dose: 100 mg Aspirin (Ecotrin) 81 mg PO DAILY [facility] Last Admin: 07/18/17 10:00 Dose: 81 mg Ciprofloxacin (Cipro) 500 mg PO BID [facility] PRN Reason: Protocol Last Admin: 07/18/17 10:01 Dose: 500 mg Clopidogrel Bisulfate (Plavix) 75 mg PO DAILY [facility] Last Admin: 07/18/17 10:00 Dose: 75 mg Enoxaparin Sodium (Lovenox) 40 mg SC DAILY [facility] Last Admin: 07/18/17 09:59 Dose: 40 mg Famotidine (Pepcid) 40 mg PO DAILY [facility] Last Admin: 07/18/17 10:01 Dose: 40 mg Furosemide (Lasix) 40 mg IVP Q12 [facility] Last Admin: 07/18/17 10:01 Dose: 40 mg Gabapentin (Neurontin) 100 mg PO DAILY [facility] Last Admin: 07/18/17 10:01 Dose: 100 mg Isosorbide Mononitrate (Imdur) 60 mg PO DAILY [facility] Last Admin: 07/18/17 10:00 Dose: 60 mg Lactic Acid (Lac-Hydrin 12% Lotion (225 G)) 0 gm EXT BID [facility] Last Admin: 07/18/17 10:26 Dose: 1 applic Levothyroxine Sodium (Synthroid) 50 mcg PO DAILY@0630 [facility] Last Admin: 07/18/17 06:34 Dose: 50 mcg Lisinopril (Zestril) 10 mg PO DAILY [facility] Last Admin: 07/18/17 10:01 Dose: 10 mg Metformin HCl (Glucophage) 500 mg PO BID [facility] Last Admin: 07/18/17 10:00 Dose: 500 mg Methylprednisolone (Solu-Medrol) 20 mg IVP Q12 [facility] Metoprolol Succinate (Toprol Xl) 50 mg PO DAILY [facility] Last Admin: 07/18/17 10:00 Dose: 50 mg Mupirocin (Bactroban Ointment) 1 gm EXT BID PRN PRN Reason: Rash Rosuvastatin Calcium (Crestor) 5 mg PO HS [facility] Last Admin: 07/16/17 21:41 Dose: 5 mg - Labs Labs: 07/16/17 06:40 07/16/17 06:40 PT 10.6 SECONDS (9.7-12.2) 07/13/17 22:41 INR 1.0 07/13/17 22:41 APTT 28 SECONDS (21-34) 07/13/17 22:41
[2017-07-19] MEDS: Albuterol-Ipratrop 3 mg / 0.5 (3 ml) UD INH SCH ×2 (01:16→07:40)
[2017-07-19 06:25] LABS: BASO % 0.2 % (0.0-2.0); HEMOGLOBIN 10.5 g/dL (11.0-16.0); LYMPH # 0.7 K/uL (1.0-4.3); LYMPH % 14.4 % (20.0-40.0); MEAN CORPUSCULAR HEMOGLOBIN 27.6 pg (27.0-31.0); MEAN CORPUSCULAR HGB CONC 33.2 g/dL (33.0-37.0); MEAN PLATELET VOLUME 9.6 fL (7.2-11.7); MONO # 0.1 K/uL (0.0-0.8); MONO % 2.5 % (0.0-10.0); NEUT # 4.3 K/uL (1.8-7.0); NEUT % 82.9 % (50.0-75.0); RBC 3.81 Mil/uL (3.80-5.20); RED CELL DISTRIBUTION WIDTH 16.1 % (11.5-14.5); WHITE BLOOD COUNT 5.2 K/uL (4.8-10.8)
[2017-07-19] MEDS: Levothyroxine 50 MCG TAB PO SCH (06:34)
[2017-07-19 06:57] LABS: CALCIUM 9.4 mg/dl (8.6-10.4)
[2017-07-19] MEDS: Metoprolol Succinate 50 mg XL Tab PO SCH (10:21)
[2017-07-19] MEDS: Ammonium Lactate 12% Lotion (225 g) EXT SCH (10:27)
[2017-07-19] MEDS: Enoxaparin 40 mg Syringe SC SCH (10:30)
[2017-07-19] MEDS: MethylPREDNISolone 40 mg Vial IVP SCH (10:30)
--- NOTE | 2017-07-19 14:47 | PN ---
DATE: 07/18/2017 SUBJECTIVE: The patient is a 61-year-old female. The patient was seen and examined on the bedside on 07/18/2017 and looking comfortable. Cough is better, shortness of breath is better. Leg swelling is better. No acute issue overnight. The patient is walking around without any issues. Trying to get rehab for the patient. PHYSICAL EXAMINATION: VITAL SIGNS: Temperature 97.7, pulse 56, respiratory rate 18, blood pressure 150/78, pulse oximetry 98%. HEENT: Head: Normocephalic, atraumatic. Eyes: PERRLA. Extraocular muscles intact. Conjunctivae clear. Nose patent. Mucous membranes moist. NECK: Supple. No carotid bruits. No JVD or thyromegaly. CHEST: Bilaterally symmetrical. HEART: S1 and S2 positive. LUNGS: Clear to auscultation. ABDOMEN: Soft. Bowel sounds present. No organomegaly. EXTREMITIES: No edema, no cyanosis. NEUROLOGIC: The patient is awake and alert. Moving all 4 extremities. No focal deficits. MEDICATIONS: Tylenol, albuterol, allopurinol, aspirin, Cipro, Plavix, Pepcid, Lasix, Neurontin, Imdur, lactic acid lotion, Synthroid, Zestril, Glucophage, Solu-Medrol, Toprol, Crestor. LABORATORY DATA: White blood cells 9.2, hemoglobin 9.6, hematocrit 36.9, platelets 207. Sodium 140, potassium 4.1, BUN 33, creatinine 1, glucose 80. ASSESSMENT AND PLAN: Ms. Taylor Angeles is a 61-year-old lady with anemia, came with exacerbation of congestive heart failure, chronic obstructive pulmonary disease, history of myocardial infarction, coronary artery bypass graft, hypertension, hypercholesterolemia, diabetes mellitus type 2, asthma, peripheral neuropathy, history of stasis dermatitis, noncompliant with her medications and with doctor's visit. The patient is like off and on flu medicine. Now, according to her she has a place to go with her friend. We will continue furosemide. is on the case. Pulmonary and Cardiology assisted on the case. Gastrointestinal and deep venous thrombosis prophylaxis. Repeat labs. We will follow up. Lula Valentine MD [facility] # [phone]
[2017-07-19 16:24] VITALS: BP 100/59; PULSE 69; RESP 20; TEMP 97.9; O2SAT 98
--- NOTE | 2017-07-19 16:38 | CP.PCM.PN ---
Subjective - Date & Time of Evaluation Date of Evaluation: 07/19/17 Time of Evaluation: 10:30 - Subjective Subjective: Patient seen and examined at bedside, resting comfortably in no acute distress. She reports that she feels better today and has no complaints. She is clear for discharge from a pulmonary standpoint and is set to be transferred to rehab today. Assessment and Plan: 1. COPD - Saturating 96-98% on RA - CXR 07/13: no acute infiltrate b/l. Linear atelectasis at the mid left lung zone laterally. - CBC 07/19: WBC 5.2 - c/w nebulizer treatments 2. CHF - Echo 04/16/17: LVEF 60-65%, normal left ventricular systolic function - continue lisinopril 10 mg PO - continue lasix - continue toprol xl 3. Lower extremity cellulitis - afebrile - started cipro - lac hydrin Objective - Vital Signs/Intake and Output Vital Signs (last 24 hours): Temp Pulse Resp BP Pulse Ox 97.9 F 69 20 100/59 L 98 07/19/17 15:23 07/19/17 15:23 07/19/17 15:23 07/19/17 15:23 07/19/17 15:23 Intake and Output: 07/19/17 07/19/17 06:59 18:59 Intake Total 480 Balance 480 - Medications Medications: Current Medications Acetaminophen (Tylenol 325mg Tab) 650 mg PO Q4 PRN PRN Reason: Pain, moderate (4-7) Last Admin: 07/14/17 07:38 Dose: 650 mg Acetaminophen (Tylenol 325mg Tab) 650 mg PO Q4H PRN PRN Reason: pain fever Albuterol (Ventolin Hfa 90 Mcg/Actuation (8 G)) 2 puff INH RQ6 PRN PRN Reason: Shortness of Breath Allopurinol (Zyloprim) 100 mg PO DAILY [facility] Last Admin: 07/19/17 10:20 Dose: 100 mg Aspirin (Ecotrin) 81 mg PO DAILY [facility] Last Admin: 07/19/17 10:21 Dose: 81 mg Ciprofloxacin (Cipro) 500 mg PO BID [facility] PRN Reason: Protocol Last Admin: 07/19/17 10:21 Dose: 500 mg Clopidogrel Bisulfate (Plavix) 75 mg PO DAILY [facility] Last Admin: 07/19/17 10:21 Dose: 75 mg Enoxaparin Sodium (Lovenox) 40 mg SC DAILY [facility] Last Admin: 07/19/17 10:30 Dose: Not Given Famotidine (Pepcid) 40 mg PO DAILY [facility] Last Admin: 07/19/17 10:22 Dose: 40 mg Furosemide (Lasix) 40 mg PO DAILY [facility] Gabapentin (Neurontin) 100 mg PO DAILY [facility] Last Admin: 07/19/17 10:21 Dose: 100 mg Isosorbide Mononitrate (Imdur) 60 mg PO DAILY [facility] Last Admin: 07/19/17 10:21 Dose: 60 mg Lactic Acid (Lac-Hydrin 12% Lotion (225 G)) 0 gm EXT BID [facility] Last Admin: 07/19/17 10:27 Dose: 1 applic Levothyroxine Sodium (Synthroid) 50 mcg PO DAILY@0630 [facility] Last Admin: 07/19/17 06:34 Dose: 50 mcg Lisinopril (Zestril) 10 mg PO DAILY [facility] Last Admin: 07/19/17 10:20 Dose: 10 mg Metformin HCl (Glucophage) 500 mg PO BID [facility] Last Admin: 07/19/17 10:20 Dose: 500 mg Methylprednisolone (Solu-Medrol) 10 mg IVP Q12 [facility] Metoprolol Succinate (Toprol Xl) 50 mg PO DAILY [facility] Last Admin: 07/19/17 10:21 Dose: 50 mg Mupirocin (Bactroban Ointment) 1 gm EXT BID PRN PRN Reason: Rash Rosuvastatin Calcium (Crestor) 5 mg PO HS [facility] Last Admin: 07/18/17 21:36 Dose: 5 mg - Labs Labs: 07/19/17 06:20 07/19/17 06:20 PT 10.6 SECONDS (9.7-12.2) 07/13/17 22:41 INR 1.0 07/13/17 22:41 APTT 28 SECONDS (21-34) 07/13/17 22:41
--- NOTE | 2017-07-19 19:10 | CP.PCM.PN ---
Subjective - Date & Time of Evaluation Date of Evaluation: 07/19/17 Time of Evaluation: 07:00 - Subjective Subjective: Patient seen and evaluated bedside. Patient states she is doing well. SOB has resolved and lower extremity leg pain has improved. Patient will be discharged today. Objective - Vital Signs/Intake and Output Vital Signs (last 24 hours): Temp Pulse Resp BP Pulse Ox 97.9 F 69 20 100/59 L 98 07/19/17 15:23 07/19/17 15:23 07/19/17 15:23 07/19/17 15:23 07/19/17 15:23 Intake and Output: 07/19/17 07/20/17 18:59 06:59 Intake Total 480 Balance 480 - Labs Labs: 07/19/17 06:20 07/19/17 06:20 PT 10.6 SECONDS (9.7-12.2) 07/13/17 22:41 INR 1.0 07/13/17 22:41 APTT 28 SECONDS (21-34) 07/13/17 22:41
[2017-07-19] MEDS ORDERED: MethylPREDNISolone 40 mg Vial IVP SCH (22:00)
== END 2017-07-19 16:39 | disposition home or self-care (01) | DRG 127 ==
LOC: C.ER 21:52 → C.9E 07-14 00:38 → C.6T 07-14 00:38
PROVIDERS: ADMIT Internal Medicine; ATTEND Internal Medicine
DX: I11.0 Hypertensive heart disease with heart failure (principal); E11.65 Type 2 diabetes mellitus with hyperglycemia; E11.42 Type 2 diabetes mellitus with diabetic polyneuropathy; J44.1 Chronic obstructive pulmonary disease with (acute) exacerbation; J45.901 Unspecified asthma with (acute) exacerbation; L03.115 Cellulitis of right lower limb; L03.116 Cellulitis of left lower limb; J98.11 Atelectasis; F41.9 Anxiety disorder, unspecified; E78.5 Hyperlipidemia, unspecified; E03.9 Hypothyroidism, unspecified; D64.9 Anemia, unspecified; I87.2 Venous insufficiency (chronic) (peripheral); I50.22 Chronic systolic (congestive) heart failure; I25.810 Atherosclerosis of coronary artery bypass graft(s) without angina pectoris; Z59.0 Homelessness; Z79.84 Long term (current) use of oral hypoglycemic drugs; Z87.891 Personal history of nicotine dependence; Z91.14 Patient's other noncompliance with medication regimen; Z91.19 Patient's noncompliance with other medical treatment and regimen; I25.2 Old myocardial infarction

== ENCOUNTER 2017-08-24 01:55 | Emergency (ER) | payer SELFPAY ==
[2017-08-24 01:56] VITALS: BMI 30.2
[2017-08-24] MEDS ORDERED: Albuterol-Ipratrop 3 mg / 0.5 (3 ml) UD INH STA ×3 (02:17→05:49)
[2017-08-24 02:24] VITALS: TEMP 97.8
--- NOTE | 2017-08-24 03:27 | C.PDOC ---
History Of Present Illness 61-year-old homeless female with PMHx of arthritis, CAD, CHF, diabetes, and hypertension, presents to the ED stating her asthma is acting up. Patient believes symptoms were triggered due to second hand smoke. Admits to coughing. No history of hospitalizations or intubations for her asthma in the past. Denies any fevers, chills, abdominal pain, rash, increased leg swelling, . Patient admits she only takes her Lasix ~3 times per week. Time Seen by Provider: 08/24/17 02:01 Chief Complaint (Nursing): Shortness Of Breath History Per: Patient History/Exam Limitations: no limitations Onset/Duration Of Symptoms: Days Current Symptoms Are (Timing): Still Present Initiating Event: Exposure To Smoke Associated Symptoms: Ankle/Leg Swelling. denies: Fever, Chills Past Medical History Reviewed: Historical Data, Nursing Documentation, Vital Signs Vital Signs: Last Vital Signs Temp 97.8 F 08/24/17 02:04 Pulse 84 08/24/17 06:05 Resp 22 08/24/17 06:05 BP 147/64 08/24/17 06:05 Pulse Ox 100 08/24/17 06:42 - Medical History PMH: Arthritis, Asthma, CAD, CHF, COPD, Diabetes, HTN, Hypercholesterolemia, Hyperlipidemia, Hypothyroidism, Peripheral Edema, Chronic Pain (leg pain) Denies: Anemia, HIV, Chronic Kidney Disease Surgical History: CABG, Hernia Repair, Tonsillectomy - [facility] Procedures CORONAR ARTERIOGR-2 CATH (11/19/13) DRAINAGE OF FACE SKIN, EXTERNAL APPROACH (02/13/17) INSERTION OF INFUSION DEV INTO SUP VENA CAVA, PERC APPROACH (10/02/16) LEFT HEART CARDIAC CATH (11/19/13) LT HEART ANGIOCARDIOGRAM (11/19/13) MEASURE CARDIAC SAMPL & PRESSURE, BILATERAL, PERC (03/11/16) PLAIN RADIOGRAPHY OF MULT COR ART USING L OSM CONTRAST (03/11/16) PLAIN RADIOGRAPHY OF R & L HEART USING L OSM CONTRAST (03/11/16) RELEASE PERITONEUM, OPEN APPROACH (12/27/16) SUPPLEMENT ABDOMINAL WALL WITH SYNTH SUB, OPEN APPROACH (12/27/16) Family History: States: Unknown Family Hx - Social History Hx Tobacco Use: No Hx Alcohol Use: No Hx Substance Use: No - Immunization History Hx Tetanus Toxoid Vaccination: No Hx Influenza Vaccination: Yes Hx Pneumococcal Vaccination: No Review Of Systems Except As Marked, All Systems Reviewed And Found Negative. Constitutional: Negative for: Fever, Chills Cardiovascular: Negative for: Chest Pain Respiratory: Positive for: Cough, Shortness of Breath Musculoskeletal: Positive for: Other (leg swelling, chronic per patient) Physical Exam - Physical Exam Appears: Non-toxic, No Acute Distress Skin: Warm, Dry Head: Atraumatic, Normacephalic Eye(s): bilateral: Normal Inspection, EOMI Nose: Normal Oral Mucosa: Moist Neck: Normal ROM, Supple Chest: Symmetrical Cardiovascular: Rhythm Regular Respiratory: No Accessory Muscle Use, No Rales, No Rhonchi, Wheezing ( bilaterally) Gastrointestinal/Abdominal: Soft, No Tenderness, No Distention Extremity: Normal ROM Extremity: Bilateral: Atraumatic, Normal Color And Temperature, Normal ROM Neurological/Psych: Oriented x3, Normal Speech, Other (No focal deficits) ED Course And Treatment - Laboratory Results Result Diagrams: 08/24/17 04:18 08/24/17 04:18 ECG: Interpreted By Me (and ED attending Dr. Gregory) ECG Rhythm: Sinus Rhythm ECG Interpretation: Normal Rate From EC O2 Sat by Pulse Oximetry: 100 (RA) Pulse Ox Interpretation: Normal - Radiology CXR: Interpreted by Me Progress Note: Labs, EKG, CXR ordered and reviewed. Patient treated with duoneb x2, Lasix, and PO Prednisone. On re-evlauation, pt notes she feels better. Ambulated to bathroom without difficulty. Notes she feels comfortable with discharge. Afebrile. Lungs CTA. Denies sob. Case discussed and pt evaluated by Dr Gregory, agreed upon plan and discharge. Disposition - Disposition Referrals: Lula Valentine MD [Staff Provider] - Disposition: HOME/ ROUTINE Disposition Time: 05:28 Condition: STABLE Additional Instructions: Follow up with your PMD in1-2 days. Return to ER if symptoms persist or worsen. Prescriptions: Albuterol HFA [Ventolin HFA 90 mcg/actuation (8 g)] 2 puff IH [id number] #1 puff Furosemide [Lasix] 40 mg PO DAILY #14 tab predniSONE [Prednisone] 40 mg PO DAILY #8 tab Instructions: Asthma, Adult (DC) Forms: Fluoresentric ([place]an) - Clinical Impression Clinical Impression: Asthma exacerbation - PA / PHOTOGRAPHIC PROCESSOR / Resident Statement MD/DO has reviewed & agrees with the documentation as recorded. - Scribe Statement The provider has reviewed the documentation as recorded by the Scribe (Erin Nuñez) All medical record entries made by the Scribe were at my direction and personally dictated by me. I have reviewed the chart and agree that the record accurately reflects my personal performance of the history, physical exam, medical decision making, and the department course for this patient. I have also personally directed, reviewed, and agree with the discharge instructions and disposition.
[2017-08-24 04:28] LABS: BASO % 0.4 % (0.0-2.0); EOS # 0.1 K/uL (0.0-0.7); EOS % 1.1 % (0.0-4.0); HEMOGLOBIN 9.4 g/dL (11.0-16.0); LYMPH # 0.6 K/uL (1.0-4.3); LYMPH % 10.1 % (20.0-40.0); MEAN CELL VOLUME 83.2 fL (81.0-99.0); MEAN CORPUSCULAR HEMOGLOBIN 26.9 pg (27.0-31.0); MEAN CORPUSCULAR HGB CONC 32.3 g/dL (33.0-37.0); MEAN PLATELET VOLUME 8.7 fL (7.2-11.7); MONO # 0.2 K/uL (0.0-0.8); MONO % 3.6 % (0.0-10.0); NEUT % 84.8 % (50.0-75.0); RBC 3.5 Mil/uL (3.80-5.20); RED CELL DISTRIBUTION WIDTH 15.2 % (11.5-14.5); WHITE BLOOD COUNT 5.9 K/uL (4.8-10.8)
[2017-08-24 04:34] LABS: ALB/GLOB RATIO 1.2 (1.0-2.1); ALBUMIN 3.6 g/dL (3.5-5.0); ALT/SGPT 10 U/L (9-52); AST/SGOT 18 U/L (14-36); BLOOD UREA NITROGEN 21 mg/dL (7-17); CALCIUM 9.2 mg/dl (8.6-10.4); GFR AFRICAN-AMERICAN > 60; GFR NON-AFRICAN AMERICAN > 60
[2017-08-24 04:46] LABS: B-TYPE NATRIURETIC PEPTIDE 1580 pg/mL (0-900); CK-MB 0.37 ng/mL (0.0-3.38)
[2017-08-24] MEDS ORDERED: Albuterol-Ipratrop 3 mg / 0.5 (3 ml) UD ONE ×2 (05:00→06:06)
[2017-08-24 06:07] VITALS: BP 147/64; PULSE 84; RESP 22
[2017-08-24 06:16] VITALS: O2SAT 100
--- NOTE | 2017-08-24 08:44 | RAD ---
PROCEDURE: CHEST RADIOGRAPH, 1 VIEW HISTORY: Shortness of breath COMPARISON: 07/13/2017. FINDINGS: LUNGS: The lungs are well inflated. There is severe pulmonary venous congestion and mild interstitial pulmonary edema. No focal consolidation. PLEURA: No pneumothorax or pleural fluid seen. CARDIOVASCULAR: There is mild cardiomegaly. Status post CABG. OSSEOUS STRUCTURES: No significant abnormalities. VISUALIZED UPPER ABDOMEN: Normal. OTHER FINDINGS: None. IMPRESSION: Mild cardiomegaly and severe pulmonary venous congestion with mild interstitial pulmonary edema concerning for congestive the.
--- NOTE | 2017-08-30 11:55 | CARD ---
APPROVED REPORT EKG Measurement Heart [id number] <Conclusion> Normal sinus rhythm Possible Inferior infarct, age undetermined Abnormal ECG
== END 2017-08-24 06:51 | disposition home or self-care (01) ==
LOC: C.ER 01:55
DX: J45.901 Unspecified asthma with (acute) exacerbation (principal)
CPT/HCPCS: 71045; 80053; 82550; 82553; 82948; 83880; 84484; 85025; 94640; 96374; 99285; J1940

== ENCOUNTER 2018-01-05 01:40 | Emergency (ER) | payer MEDICAID, OTHER ==
[2018-01-05 01:40] VITALS: BMI 30.2
--- NOTE | 2018-01-05 01:51 | C.PDOC ---
History Of Present Illness patient states that her"asthma is acting up" Speaking in complete sentences. No f/c/n/v. No chest pain or palpitations. Did not use any inhaler.Pt is homeless and rides the trains all day Time Seen by Provider: 01/05/18 01:50 History Per: Patient History/Exam Limitations: no limitations Onset/Duration Of Symptoms: Hrs Current Symptoms Are (Timing): Still Present Initiating Event: Other Exacerbating Factor(s): Other Current Respiratory Medications: See Home Med List Severity: Moderate Pain Scale Rating Of: 4 Associated Symptoms: denies: Fever, Chills, Sweating Reports Recently: Seen In ED, Treated By A Physician, Hospitalized Additional History Per: Patient Past Medical History Reviewed: Historical Data, Nursing Documentation, Vital Signs - Medical History PMH: Arthritis, Asthma, CAD, CHF, COPD, Diabetes, HTN, Hypercholesterolemia, Hyperlipidemia, Hypothyroidism, Peripheral Edema, Chronic Pain (leg pain) Denies: Anemia, HIV, Chronic Kidney Disease Surgical History: CABG, Hernia Repair, Tonsillectomy - [facility] Procedures CORONAR ARTERIOGR-2 CATH (11/19/13) DRAINAGE OF FACE SKIN, EXTERNAL APPROACH (02/13/17) EXCISION OF STOMACH, PYLORUS, ENDO, DIAGN (10/11/17) INSERTION OF INFUSION DEV INTO SUP VENA CAVA, PERC APPROACH (10/02/16) LEFT HEART CARDIAC CATH (11/19/13) LT HEART ANGIOCARDIOGRAM (11/19/13) MEASURE CARDIAC SAMPL & PRESSURE, BILATERAL, PERC (03/11/16) PLAIN RADIOGRAPHY OF MULT COR ART USING L OSM CONTRAST (03/11/16) PLAIN RADIOGRAPHY OF R & L HEART USING L OSM CONTRAST (03/11/16) RELEASE PERITONEUM, OPEN APPROACH (12/27/16) SUPPLEMENT ABDOMINAL WALL WITH SYNTH SUB, OPEN APPROACH (12/27/16) Family History: States: No Known Family Hx - Social History Hx Tobacco Use: No Hx Alcohol Use: No Hx Substance Use: No - Immunization History Hx Tetanus Toxoid Vaccination: No Hx Influenza Vaccination: Yes Hx Pneumococcal Vaccination: No Review Of Systems Constitutional: Negative for: Fever, Chills ENT: Negative for: Throat Pain Cardiovascular: Negative for: Chest Pain Respiratory: Positive for: Shortness of Breath, Wheezing Gastrointestinal: Negative for: Nausea, Vomiting, Abdominal Pain Genitourinary: Negative for: Dysuria Musculoskeletal: Negative for: Back Pain Skin: Positive for: Rash (both legs) Neurological: Negative for: Weakness Psych: Negative for: Anxiety Physical Exam - Physical Exam Appears: Non-toxic, No Acute Distress Skin: Warm, Dry Eye(s): bilateral: Normal Inspection Oral Mucosa: Moist Neck: Supple Chest: Symmetrical Cardiovascular: Rhythm Regular Respiratory: No Rales, Rhonchi, Wheezing Gastrointestinal/Abdominal: Soft, No Tenderness, No Distention Back: Normal Inspection Extremity: Normal ROM, Pedal Edema (trace), Swelling, Other (small ulceration due to vascular stasis) Extremity: Bilateral: Atraumatic, Normal ROM Neurological/Psych: Oriented x3, Normal Speech, Normal Cognition Gait: Steady ED Course And Treatment Pulse Ox Interpretation: Normal - Radiology CXR: Interpreted by Me, Viewed By Me Disposition Counseled Patient/Family Regarding: Studies Performed, Diagnosis - Disposition Disposition: HOME/ ROUTINE Disposition Time: 01:51 Condition: FAIR Prescriptions: Albuterol HFA [Ventolin HFA 90 mcg/actuation (8 g)] 2 puff IH [id number] #1 puff Instructions: Asthma, Adult (DC) Forms: General Discharge Instructions - Clinical Impression Clinical Impression: Asthma
[2018-01-05 05:28] VITALS: BP 154/79; PULSE 84; RESP 16; TEMP 97.7; O2SAT 100
== END 2018-01-05 06:04 | disposition home or self-care (01) ==
LOC: C.ER 01:40
DX: J45.909 Unspecified asthma, uncomplicated (principal); E11.9 Type 2 diabetes mellitus without complications; E78.00 Pure hypercholesterolemia, unspecified; E03.9 Hypothyroidism, unspecified; I50.9 Heart failure, unspecified; I10 Essential (primary) hypertension; Z59.0 Homelessness